=== PATIENT | female | born 1935 | race Caucasian/White ===

== ENCOUNTER → 2016-03-25 | Day surgery (SDC) | payer MEDICARE ==
[~2016-03-25] MED LIST: ACET325T9 PO; ALBU2.5V5 NEB; BRIN8DRO EACHEYE; CHOL500016 PO; CITA20TA5 PO; CITA40TA5 PO; CYCL1DRO EACHEYE; DILT180C67 PO; DIPH25CA58 PO; DOCU-27 PO; FENTANYL PF 100 MCG/2 ML VIAL. IV PRN; FISH12002 PO; FLUT1DIS3 IH; FURO80TA3 PO; GLYC30DR OP; HYPR10GE OP; IPRA4AER IH; IV RINGERS,LACTATED 1000ML 1,000 ML IV SCH; KETO5DRO3 EACHEYE; LEVO100T PO; LEVO125T5 PO; LIDOCAINE 1% 1 ML SYRINGE. ID PRN; LIDOCAINE 2% PF Vial for OR 5 ML VIAL. ONE; METH-39 PO; METO25TA4 PO; MULT-246 PO; NIAC500T PO; NYST60PO TP; OMEP20CA9 PO; OXYB5TAB PO; POTA10TA10 PO; PRED20TA PO; PROCHLORPERAZINE 10 MG/2 ML VIAL. IV PRN; PROPOFOL 20 ML IV ONE; SIMV20TA3 PO; SPIR25TA3 PO; Sennosides/Docusate Sodium PO; WARF5TAB PO; WARF5TAB7 PO; WARF7.5T PO
[2016-03-25 08:00] VITALS: BP 140/70
--- NOTE | 2016-03-26 13:31 | PATHOLOGY ---
PATHOLOGY REPORT * * * * * * * * FINAL DIAGNOSIS: Esophageal biopsy: - Sanjuana esophagitis. COMMENT: Sections of the esophageal biopsy reveal segments of hyperplastic squamous esophageal mucosa. There are focal intraepithelial neutrophils and chronic inflammatory cells. A PAS-D stain for fungus is obtained and reveals yeast and pseudohyphae consistent with Sanjuana species. The findings are compatible with Sanjuana esophagitis. There is no evidence of Torres's change, dysplasia, or malignancy. (JPM:mgr; d/t: 03/26/16) Special Stain Performed: PAS for fungus REPORT ELECTRONICALLY SIGNED BY: Pedro Philip M.D. DATE/TIME: 03/26/2016 13:31 * * * * * * * * GROSS PATHOLOGY: Received in formalin labeled "Annie Orozco, esophageal biopsy," are 5 segments of cast soft tissue measuring 0.7 x 0.4 x 0.2 cm in aggregate dimensions and ranging from 0.2 to 0.5 cm in maximum dimension. The specimen is submitted entirely in cassette A1. (KAH; 03/25/2016) INITIAL CPT CODE(S): A; 96508, 63498 Professional services performed by [facility] [place] [address] Technical services performed by [facility] at [address] [place] [address]. SPECIMEN(S) RECEIVED: A.Esophageal biopsy CLINICAL HISTORY: Dysphagia PATIENT: ANNIE OROZCO /AGE: 7 1935 (Age: 80) PATIENT #: [id number] ALT CASE #: SPECIMEN COLLECTION DATE: 03/25/2016 SPECIMEN RECEIVED DATE: 03/25/2016 [facility] - [address] [place] [address] - PHONE: [phone] * * * END OF REPORT * * *
== END | disposition home or self-care (01) ==
LOC: SURG 05:50
PROVIDERS: ATTEND Internal Medicine Gastroenterology
DX: K22.2 Esophageal obstruction (principal); K29.50 Unspecified chronic gastritis without bleeding; B37.81 Candidal esophagitis; M19.90 Unspecified osteoarthritis, unspecified site; F32.9 Major depressive disorder, single episode, unspecified; E78.00 Pure hypercholesterolemia, unspecified; J44.9 Chronic obstructive pulmonary disease, unspecified; Z87.891 Personal history of nicotine dependence
CPT/HCPCS: 43239; 43450; 88305; 88312; J2704

== ENCOUNTER → 2017-01-21 | Day surgery (SDC) | payer MEDICARE ==
[~2017-01-21] MED LIST changes: -ACET325T9 PO; -ALBU2.5V5 NEB; -BRIN8DRO EACHEYE; -CHOL500016 PO; -CITA20TA5 PO; -CITA40TA5 PO; -CYCL1DRO EACHEYE; -DILT180C67 PO; -DIPH25CA58 PO; -DOCU-27 PO; -FENTANYL PF 100 MCG/2 ML VIAL. IV PRN; -FISH12002 PO; -FLUT1DIS3 IH; -FURO80TA3 PO; -GLYC30DR OP; -HYPR10GE OP; -IPRA4AER IH; -IV RINGERS,LACTATED 1000ML 1,000 ML IV SCH; -KETO5DRO3 EACHEYE; -LEVO100T PO; -LEVO125T5 PO; -LIDOCAINE 1% 1 ML SYRINGE. ID PRN; +LIDOCAINE 1% PF 2 ML VIAL. ID; +LIDOCAINE 2% PF Vial for OR 5 ML VIAL.; -LIDOCAINE 2% PF Vial for OR 5 ML VIAL. ONE; -METH-39 PO; -METO25TA4 PO; -MULT-246 PO; -NIAC500T PO; -NYST60PO TP; -OMEP20CA9 PO; -OXYB5TAB PO; -POTA10TA10 PO; -PRED20TA PO; +PROCHLORPERAZINE 10 MG/2 ML VIAL. IV; -PROCHLORPERAZINE 10 MG/2 ML VIAL. IV PRN; +PROPOFOL 20 ML IV; -PROPOFOL 20 ML IV ONE; -SIMV20TA3 PO; -SPIR25TA3 PO; -Sennosides/Docusate Sodium PO; -WARF5TAB PO; -WARF5TAB7 PO; -WARF7.5T PO; +fentaNYL PF VIAL 100 MCG/2 ML VIAL IV
[2017-01-21] MEDS: IV RINGERS,LACTATED 1000ML 1,000 ML IV (13:19)
== END | disposition home or self-care (01) ==
LOC: ENDOS 12:25
DX: K21.0 Gastro-esophageal reflux disease with esophagitis (principal); K31.7 Polyp of stomach and duodenum; K29.50 Unspecified chronic gastritis without bleeding; I11.0 Hypertensive heart disease with heart failure; I50.9 Heart failure, unspecified; E78.00 Pure hypercholesterolemia, unspecified; I25.10 Atherosclerotic heart disease of native coronary artery without angina pectoris; F17.200 Nicotine dependence, unspecified, uncomplicated; E03.9 Hypothyroidism, unspecified; M19.90 Unspecified osteoarthritis, unspecified site; I48.91 Unspecified atrial fibrillation; Z90.49 Acquired absence of other specified parts of digestive tract; Z86.69 Personal history of other diseases of the nervous system and sense organs; Z86.73 Personal history of transient ischemic attack (TIA), and cerebral infarction without residual deficits; Z98.51 Tubal ligation status; Z87.39 Personal history of other diseases of the musculoskeletal system and connective tissue; Z87.440 Personal history of urinary (tract) infections; Z86.14 Personal history of Methicillin resistant Staphylococcus aureus infection; Z88.6 Allergy status to analgesic agent; Z88.8 Allergy status to other drugs, medicaments and biological substances
CPT/HCPCS: 43239; 88305; 88342; J2704

== ENCOUNTER 2017-05-11 17:04 | Inpatient (IN) | payer MEDICARE ==
[2017-05-11] MEDS: IPRATRPIUM/ALBUTEROL 0.5/2.5MG 3 ML NEBU. NEB ×2 (17:15→19:24)
[2017-05-11 17:23] LABS: ADD MAN DIFF? NO
[2017-05-11 17:27] LABS: BASO # 0.1 x10^3/uL (0.0-0.2); BASO % 1 % (0-3); EOS % 0 % (0-3); HEMATOCRIT 47.1 % (36.0-47.0); HEMOGLOBIN 15.1 g/dL (12.0-15.5); LYMPH # 0.9 x10^3/uL (1.0-4.8); LYMPH % 16 % (24-48); MEAN CORPUSCULAR HEMOGLOBIN 28 pg (25-35); MEAN CORPUSCULAR HGB CONC 32 g/dL (31-37); MEAN CORPUSCULAR VOLUME 86 fL (79-100); MONO # 0.5 x10^3/uL (0.0-1.1); MONO % 9 % (0-9); NEUT % 74 % (31-73); PLATELET COUNT 153 x10^3/uL (140-400); RED BLOOD COUNT 5.48 x10^6/uL (3.50-5.40); RED CELL DISTRIBUTION WIDTH 16.9 % (11.5-14.5); WHITE BLOOD COUNT 5.5 x10^3/uL (4.0-11.0)
[2017-05-11 17:37] LABS: ANION GAP 10 (6-14); BLOOD UREA NITROGEN 18 mg/dL (7-20); CALCIUM 10.8 mg/dL (8.5-10.1); CARBON DIOXIDE 25 mmol/L (21-32); CHLORIDE 104 mmol/L (98-107); CREATININE 1.3 mg/dL (0.6-1.0); GFR 39.5; GLUCOSE 127 mg/dL (70-99); POTASSIUM 4.3 mmol/L (3.5-5.1); SODIUM 139 mmol/L (136-145)
[2017-05-11 17:43] LABS: ALBUMIN 3.5 g/dL (3.4-5.0); ALK PHOS 132 U/L (46-116); ALT (SGPT) 10 U/L (14-59); AST (SGOT) 14 U/L (15-37); DIRECT BILIRUBIN 0.3 mg/dL (0.0-0.2); LIPASE 89 U/L (73-393); TOTAL BILIRUBIN 1.2 mg/dL (0.2-1.0); TOTAL PROTEIN 7.3 g/dL (6.4-8.2)
[2017-05-11 17:45] LABS: TROPONINI < 0.017 ng/mL (0.000-0.055)
[2017-05-11 17:49] LABS: NT-PRO BNP 2169 pg/mL (0-449)
[2017-05-11] MEDS ORDERED: ONDANSETRON PF 4 MG/2 ML VIAL. IV (18:45)
[2017-05-11] MEDS: FUROSEMIDE 20 MG/2 ML VIAL. IVP (19:07)
[2017-05-11] MEDS: methylPREDNISolone SOD SUCC PF 125 MG/2 ML VIAL. IV (19:07)
[2017-05-11 20:02] LABS: BASE EXCESS ABG 1 mmol/L (-3-3); HCO3 ABG 25 mmol/L (21-28); PCO2 ABG 39 mmHg (35-46); PH ABG 7.42 (7.35-7.45); PO2 ABG 84 mmHg (65-108); SAT O2 ABG 96 % (92-99)
[2017-05-11 20:34] LABS: FIO2 ABG 45
[2017-05-11 22:51] LABS: TROPONINI < 0.017 ng/mL (0.000-0.055)
[2017-05-12 01:44] LABS: TROPONINI < 0.017 ng/mL (0.000-0.055)
[2017-05-12 01:50] LABS: ANION GAP 12 (6-14); BLOOD UREA NITROGEN 19 mg/dL (7-20); CALCIUM 10.4 mg/dL (8.5-10.1); CARBON DIOXIDE 24 mmol/L (21-32); CHLORIDE 104 mmol/L (98-107); CREATININE 1.3 mg/dL (0.6-1.0); GFR 39.5; GLUCOSE 157 mg/dL (70-99); POTASSIUM 4.2 mmol/L (3.5-5.1); SODIUM 140 mmol/L (136-145)
[2017-05-12 03:54] LABS: BASO % 0 % (0-3); EOS % 0 % (0-3); HEMATOCRIT 44.6 % (36.0-47.0); HEMOGLOBIN 14.4 g/dL (12.0-15.5); LYMPH # 0.3 x10^3/uL (1.0-4.8); LYMPH % 7 % (24-48); MEAN CORPUSCULAR HEMOGLOBIN 28 pg (25-35); MEAN CORPUSCULAR HGB CONC 32 g/dL (31-37); MEAN CORPUSCULAR VOLUME 86 fL (79-100); MONO % 1 % (0-9); NEUT # 4.3 x10^3uL (1.8-7.7); NEUT % 92 % (31-73); PLATELET COUNT 140 x10^3/uL (140-400); RED BLOOD COUNT 5.16 x10^6/uL (3.50-5.40); RED CELL DISTRIBUTION WIDTH 16.8 % (11.5-14.5); WHITE BLOOD COUNT 4.7 x10^3/uL (4.0-11.0)
[2017-05-12 03:56] LABS: ADD MAN DIFF? YES
[2017-05-12] MEDS: IPRATRPIUM/ALBUTEROL 0.5/2.5MG 3 ML NEBU. NEB ×5 (07:43→19:32)
[2017-05-12 07:54] LABS: BASE EXCESS ABG -1 mmol/L (-3-3); HCO3 ABG 24 mmol/L (21-28); PCO2 ABG 38 mmHg (35-46); PH ABG 7.41 (7.35-7.45); PO2 ABG 83 mmHg (65-108); SAT O2 ABG 96 % (92-99)
[2017-05-12 08:00] LABS: FIO2 ABG 45
[2017-05-12 08:06] LABS: POC GLUCOSE 161 mg/dL (70-99)
[2017-05-12] MEDS ORDERED: POLYVINYL ALCOHOL 1.4% OPHTH SOLUTION 15ML BOTTLE. OU (08:30)
[2017-05-12] MEDS ORDERED: DORZOLAMIDE 2% OPHTH SOLUTION 10ML BOTTLE. OU (09:00)
[2017-05-12] MEDS ORDERED: NON FORMULARY ITEM (Ipratropium/Albuterol Sulfate (Combivent Respimat Inhal) 2 INH) IH (09:00)
[2017-05-12] MEDS: WARFARIN 2 MG TABLET. PO (09:00)
[2017-05-12] MEDS ORDERED: NON FORMULARY ITEM (Fluticasone/Salmeterol (Advair 250-50 Diskus) 1 PUFF) IH (09:00)
[2017-05-12 09:01] LABS: INR 1.9 (0.8-1.1); PROTHROMBIN TIME PATIENT 21.5 SEC (11.7-14.0)
[2017-05-12] MEDS: SPIRONOLACTONE 25 MG TABLET PO (09:22)
[2017-05-12] MEDS: methylPREDNISolone SOD SUCC PF 125 MG/2 ML VIAL. IV ×3 (09:22→20:52)
[2017-05-12] MEDS: FUROSEMIDE 80 MG TABLET. PO (09:22)
[2017-05-12] MEDS: OXYBUTYNIN CHLORIDE 5 MG TABLET PO ×2 (09:22→20:42)
[2017-05-12] MEDS: PANTOPRAZOLE 40 MG TABLET.DR. PO (09:23)
[2017-05-12] MEDS: POTASSIUM CHLORIDE 10 MEQ TABLET.ER. PO ×2 (09:23→20:50)
[2017-05-12] MEDS: METOPROLOL TART IMMED RELEASE 25 MG TABLET. PO ×2 (09:23→20:44)
[2017-05-12] MEDS: ACETAMINOPHEN 500 MG TABLET PO ×2 (09:23→17:07)
[2017-05-12] MEDS: LEVOTHYROXINE 112 MCG TABLET PO (09:23)
[2017-05-12] MEDS: cycloSPORINE 0.05% OPTH 1 DROP DROPERETTE OU ×2 (09:24→20:47)
[2017-05-12] MEDS: KETOTIFEN FUMARATE 0.025% OPHTH SOLUTION BOTTLE. OU ×2 (09:24→20:44)
[2017-05-12 09:28] LABS: % BANDS 3 % (0-9); % LYMPHS 5 % (24-48); % MONOS 1 % (0-10); % SEGS 91 % (35-66); PLT ESTIMATE ADEQUATE (ADEQUATE)
[2017-05-12] MEDS: DORZOLAMIDE 2% OPHTH SOLUTION 10ML BOTTLE. OU ×2 (10:04→20:45)
[2017-05-12] MEDS: BRIMONIDINE 0.2% OPHTH SOLUTION 5ML BOTTLE. OU ×2 (10:04→20:45)
[2017-05-12 10:20] LABS: THYROID STIM HORMONE (TSH) 0.736 uIU/mL (0.358-3.74)
[2017-05-12] MEDS: BUDESONIDE 0.5 MG/2 ML NEBU. NEB ×2 (11:29→19:32)
[2017-05-12] MEDS: WARFARIN 7.5 MG TABLET. PO (12:54)
[2017-05-12] MEDS: cefTRIAXone IV Push 1 GM VIAL. IVP (13:02)
[2017-05-12] MEDS: WARFARIN 5 MG TABLET. PO (17:01)
[2017-05-12] MEDS: ATORVASTATIN CALCIUM 10 MG TABLET. PO (20:42)
[2017-05-12] MEDS: LATANOPROST 0.005% OPHTH SOLUTION 2.5ML BOTTLE. OU (20:44)
[2017-05-12] MEDS: POLYVINYL ALCOHOL 1.4% OPHTH SOLUTION 15ML BOTTLE. OU (20:45)
[2017-05-12 21:04] LABS: POC GLUCOSE 200 mg/dL (70-99)
[2017-05-13 01:13] LABS: MRSA BY PCR Negative (Negative)
[2017-05-13] MEDS: ACETAMINOPHEN 500 MG TABLET PO ×2 (04:28→23:20)
[2017-05-13] MEDS: methylPREDNISolone SOD SUCC PF 125 MG/2 ML VIAL. IV ×3 (05:47→22:07)
[2017-05-13] MEDS: LEVOTHYROXINE 112 MCG TABLET PO (05:50)
[2017-05-13 06:51] LABS: ANION GAP 12 (6-14); BLOOD UREA NITROGEN 32 mg/dL (7-20); CALCIUM 11.4 mg/dL (8.5-10.1); CARBON DIOXIDE 23 mmol/L (21-32); CHLORIDE 100 mmol/L (98-107); CREATININE 1.6 mg/dL (0.6-1.0); GFR 31.1; GLUCOSE 175 mg/dL (70-99); POTASSIUM 4.6 mmol/L (3.5-5.1); SODIUM 135 mmol/L (136-145)
[2017-05-13 07:02] LABS: INR 2.3 (0.8-1.1); PROTHROMBIN TIME PATIENT 24.3 SEC (11.7-14.0)
[2017-05-13] MEDS ORDERED: DEXTROSE 50% 25 GM / 50ML DISP.SYRIN. IV (08:15)
[2017-05-13] MEDS: INSULIN ASPART 300 UNITS/3 ML INSULN.PEN SQ ×3 (09:00→17:00)
[2017-05-13] MEDS: BUDESONIDE 0.5 MG/2 ML NEBU. NEB ×2 (09:08→19:44)
[2017-05-13] MEDS: IPRATRPIUM/ALBUTEROL 0.5/2.5MG 3 ML NEBU. NEB ×4 (09:09→19:44)
[2017-05-13] MEDS: OXYBUTYNIN CHLORIDE 5 MG TABLET PO ×2 (10:16→22:12)
[2017-05-13] MEDS: FUROSEMIDE 80 MG TABLET. PO (10:16)
[2017-05-13] MEDS: SPIRONOLACTONE 25 MG TABLET PO (10:16)
[2017-05-13] MEDS: LACTOBACILLUS RHAMNOSUS GG 1 CAPSULE. PO ×2 (10:16→22:12)
[2017-05-13] MEDS: PANTOPRAZOLE 40 MG TABLET.DR. PO (10:16)
[2017-05-13] MEDS: POTASSIUM CHLORIDE 10 MEQ TABLET.ER. PO ×2 (10:16→22:10)
[2017-05-13] MEDS: METOPROLOL TART IMMED RELEASE 25 MG TABLET. PO ×2 (10:17→22:09)
[2017-05-13] MEDS: cycloSPORINE 0.05% OPTH 1 DROP DROPERETTE OU ×2 (10:17→22:03)
[2017-05-13] MEDS: DORZOLAMIDE 2% OPHTH SOLUTION 10ML BOTTLE. OU ×2 (10:17→22:18)
[2017-05-13] MEDS: KETOTIFEN FUMARATE 0.025% OPHTH SOLUTION BOTTLE. OU ×2 (10:18→22:11)
[2017-05-13] MEDS: BRIMONIDINE 0.2% OPHTH SOLUTION 5ML BOTTLE. OU ×2 (10:18→22:18)
[2017-05-13 12:11] LABS: MAGNESIUM 2.1 mg/dL (1.8-2.4)
[2017-05-13 12:34] LABS: POC GLUCOSE 153 mg/dL (70-99)
[2017-05-13] MEDS: cefTRIAXone IV Push 1 GM VIAL. IVP (14:55)
[2017-05-13 15:22] LABS: CHOLESTEROL 140 mg/dL (0-200); HDLC 44 mg/dL (40-60); LDLC 81 mg/dL (0-100); NON-HDL CHOLESTEROL 96 mg/dL (0-129); TRIGLYCERIDES 76 mg/dL (0-150); VLDLC 15 mg/dL (0-40)
[2017-05-13 15:23] LABS: CHOLESTEROL/HDL RATIO 3.2
[2017-05-13] MEDS: WARFARIN 5 MG TABLET. PO (17:05)
[2017-05-13] MEDS: BISACODYL 10 MG SUPP.RECT. PR (17:05)
[2017-05-13] MEDS: IV NORMAL SALINE 1000ML BAG 1,000 ML IV (17:05)
[2017-05-13 18:19] LABS: POC GLUCOSE 160 mg/dL (70-99)
[2017-05-13 20:21] LABS: POC GLUCOSE 178 mg/dL (70-99)
[2017-05-13] MEDS: LATANOPROST 0.005% OPHTH SOLUTION 2.5ML BOTTLE. OU (22:02)
[2017-05-13] MEDS: POLYVINYL ALCOHOL 1.4% OPHTH SOLUTION 15ML BOTTLE. OU (22:11)
[2017-05-13] MEDS: ATORVASTATIN CALCIUM 10 MG TABLET. PO (22:12)
[2017-05-13] MEDS: NYSTATIN TOPICAL POWDER 15GM BOTTLE. TP (22:19)
[2017-05-14 05:18] LABS: ANION GAP 9 (6-14); BLOOD UREA NITROGEN 35 mg/dL (7-20); CARBON DIOXIDE 26 mmol/L (21-32); CHLORIDE 101 mmol/L (98-107); CREATININE 1.6 mg/dL (0.6-1.0); GFR 31.1; GLUCOSE 162 mg/dL (70-99); POTASSIUM 4.6 mmol/L (3.5-5.1); SODIUM 136 mmol/L (136-145)
[2017-05-14] MEDS: methylPREDNISolone SOD SUCC PF 125 MG/2 ML VIAL. IV (06:30)
[2017-05-14] MEDS: LEVOTHYROXINE 112 MCG TABLET PO (06:31)
[2017-05-14] MEDS: IPRATRPIUM/ALBUTEROL 0.5/2.5MG 3 ML NEBU. NEB ×4 (07:12→19:48)
[2017-05-14] MEDS: BUDESONIDE 0.5 MG/2 ML NEBU. NEB ×2 (07:13→19:48)
[2017-05-14] MEDS: INSULIN ASPART 300 UNITS/3 ML INSULN.PEN SQ ×3 (08:00→17:00)
[2017-05-14 08:38] LABS: POC GLUCOSE 156 mg/dL (70-99)
[2017-05-14] MEDS: cycloSPORINE 0.05% OPTH 1 DROP DROPERETTE OU ×2 (09:00→21:38)
[2017-05-14] MEDS: LATANOPROST 0.005% OPHTH SOLUTION 2.5ML BOTTLE. OU ×2 (09:12→21:50)
[2017-05-14] MEDS: KETOTIFEN FUMARATE 0.025% OPHTH SOLUTION BOTTLE. OU ×2 (09:12→21:57)
[2017-05-14] MEDS: NYSTATIN TOPICAL POWDER 15GM BOTTLE. TP ×2 (09:12→21:56)
[2017-05-14] MEDS: BRIMONIDINE 0.2% OPHTH SOLUTION 5ML BOTTLE. OU ×2 (09:12→21:58)
[2017-05-14] MEDS: DORZOLAMIDE 2% OPHTH SOLUTION 10ML BOTTLE. OU ×2 (09:13→21:58)
[2017-05-14] MEDS: POLYVINYL ALCOHOL 1.4% OPHTH SOLUTION 15ML BOTTLE. OU ×2 (09:13→21:58)
[2017-05-14] MEDS: OXYBUTYNIN CHLORIDE 5 MG TABLET PO ×2 (09:14→21:40)
[2017-05-14] MEDS: PANTOPRAZOLE 40 MG TABLET.DR. PO (09:14)
[2017-05-14] MEDS: methylPREDNISolone SOD SUCC PF 40 MG/ML VIAL. IV ×2 (09:14→21:38)
[2017-05-14] MEDS: LACTOBACILLUS RHAMNOSUS GG 1 CAPSULE. PO ×2 (09:14→21:40)
[2017-05-14] MEDS: POTASSIUM CHLORIDE 10 MEQ TABLET.ER. PO ×2 (09:15→21:40)
[2017-05-14] MEDS: FUROSEMIDE 40 MG TABLET. PO (09:15)
[2017-05-14] MEDS: SPIRONOLACTONE 25 MG TABLET PO (09:16)
[2017-05-14] MEDS: METOPROLOL TART IMMED RELEASE 25 MG TABLET. PO ×2 (09:16→21:42)
[2017-05-14] MEDS: cefTRIAXone IV Push 1 GM VIAL. IVP (11:51)
[2017-05-14 11:58] LABS: POC GLUCOSE 151 mg/dL (70-99)
[2017-05-14] MEDS: WARFARIN 2.5 MG TABLET. PO (16:31)
[2017-05-14] MEDS: ACETAMINOPHEN 500 MG TABLET PO (16:31)
[2017-05-14 17:33] LABS: POC GLUCOSE 139 mg/dL (70-99)
[2017-05-14 21:03] LABS: POC GLUCOSE 170 mg/dL (70-99)
[2017-05-14] MEDS: ATORVASTATIN CALCIUM 10 MG TABLET. PO (21:39)
[2017-05-15 05:32] LABS: ANION GAP 8 (6-14); BLOOD UREA NITROGEN 35 mg/dL (7-20); CALCIUM 11.3 mg/dL (8.5-10.1); CARBON DIOXIDE 25 mmol/L (21-32); CHLORIDE 99 mmol/L (98-107); CREATININE 1.4 mg/dL (0.6-1.0); GFR 36.3; GLUCOSE 164 mg/dL (70-99); POTASSIUM 4.7 mmol/L (3.5-5.1); SODIUM 132 mmol/L (136-145)
[2017-05-15] MEDS: LEVOTHYROXINE 112 MCG TABLET PO (05:48)
[2017-05-15] MEDS: PANTOPRAZOLE 40 MG TABLET.DR. PO (05:50)
[2017-05-15] MEDS: BUDESONIDE 0.5 MG/2 ML NEBU. NEB (07:47)
[2017-05-15] MEDS: IPRATRPIUM/ALBUTEROL 0.5/2.5MG 3 ML NEBU. NEB ×2 (07:47→11:57)
[2017-05-15] MEDS: INSULIN ASPART 300 UNITS/3 ML INSULN.PEN SQ (08:00)
[2017-05-15 08:17] LABS: POC GLUCOSE 135 mg/dL (70-99)
[2017-05-15] MEDS: OXYBUTYNIN CHLORIDE 5 MG TABLET PO (09:16)
[2017-05-15] MEDS: LACTOBACILLUS RHAMNOSUS GG 1 CAPSULE. PO (09:16)
[2017-05-15] MEDS: methylPREDNISolone SOD SUCC PF 40 MG/ML VIAL. IV (09:16)
[2017-05-15] MEDS: FUROSEMIDE 40 MG TABLET. PO (09:16)
[2017-05-15] MEDS: POTASSIUM CHLORIDE 10 MEQ TABLET.ER. PO (09:16)
[2017-05-15] MEDS: SPIRONOLACTONE 25 MG TABLET PO (09:17)
[2017-05-15] MEDS: METOPROLOL TART IMMED RELEASE 25 MG TABLET. PO (09:17)
[2017-05-15] MEDS: cycloSPORINE 0.05% OPTH 1 DROP DROPERETTE OU (09:18)
[2017-05-15] MEDS: BRIMONIDINE 0.2% OPHTH SOLUTION 5ML BOTTLE. OU (09:19)
[2017-05-15] MEDS: DORZOLAMIDE 2% OPHTH SOLUTION 10ML BOTTLE. OU (09:20)
[2017-05-15] MEDS: KETOTIFEN FUMARATE 0.025% OPHTH SOLUTION BOTTLE. OU (09:20)
[2017-05-15] MEDS: NYSTATIN TOPICAL POWDER 15GM BOTTLE. TP (09:21)
[2017-05-15 11:13] LABS: PROTHROMBIN TIME PATIENT 30.7 SEC (11.7-14.0)
[2017-05-15] MEDS ORDERED: NYSTATIN 100,000 UNITS/ML 5 ML ORAL.SUSP. SWSW (11:15)
== END 2017-05-15 12:00 | disposition home or self-care (01) | DRG 291 ==
LOC: 2 NORTH 05-13 17:40 → ER 17:04 → 1 WEST ICU 19:00
PROVIDERS: Family Medicine
PROC: 5A09357 Assistance with Respiratory Ventilation, Less than 24 Consecutive Hours, Continuous Positive Airway Pressure (ICD-10-PCS; 2017-05-11)
PROC: 5A09357 Assistance with Respiratory Ventilation, Less than 24 Consecutive Hours, Continuous Positive Airway Pressure (ICD-10-PCS; principal; 2017-05-12)
PROC: 5A09357 Assistance with Respiratory Ventilation, Less than 24 Consecutive Hours, Continuous Positive Airway Pressure (ICD-10-PCS; 2017-05-13)
PROC: 5A09357 Assistance with Respiratory Ventilation, Less than 24 Consecutive Hours, Continuous Positive Airway Pressure (ICD-10-PCS; 2017-05-14)
PROC: 5A09357 Assistance with Respiratory Ventilation, Less than 24 Consecutive Hours, Continuous Positive Airway Pressure (ICD-10-PCS; 2017-05-15)
DX: I13.0 Hypertensive heart and chronic kidney disease with heart failure and stage 1 through stage 4 chronic kidney disease, or unspecified chronic kidney disease (principal); I50.33 Acute on chronic diastolic (congestive) heart failure; J96.21 Acute and chronic respiratory failure with hypoxia; N17.9 Acute kidney failure, unspecified; B37.0 Candidal stomatitis; I27.20 Pulmonary hypertension, unspecified; E11.22 Type 2 diabetes mellitus with diabetic chronic kidney disease; J44.1 Chronic obstructive pulmonary disease with (acute) exacerbation; E03.9 Hypothyroidism, unspecified; N18.3 Chronic kidney disease, stage 3 (moderate); I48.2 Chronic atrial fibrillation; I25.10 Atherosclerotic heart disease of native coronary artery without angina pectoris; E78.00 Pure hypercholesterolemia, unspecified; E78.5 Hyperlipidemia, unspecified; H40.9 Unspecified glaucoma; K21.9 Gastro-esophageal reflux disease without esophagitis; Z77.090 Contact with and (suspected) exposure to asbestos; I71.4 Abdominal aortic aneurysm, without rupture; F32.9 Major depressive disorder, single episode, unspecified; F41.9 Anxiety disorder, unspecified; M19.90 Unspecified osteoarthritis, unspecified site; T38.0X5A Adverse effect of glucocorticoids and synthetic analogues, initial encounter; Z86.73 Personal history of transient ischemic attack (TIA), and cerebral infarction without residual deficits; Z79.01 Long term (current) use of anticoagulants; Z82.49 Family history of ischemic heart disease and other diseases of the circulatory system; Z86.14 Personal history of Methicillin resistant Staphylococcus aureus infection; Z95.1 Presence of aortocoronary bypass graft; Z87.891 Personal history of nicotine dependence; Z95.0 Presence of cardiac pacemaker; Z95.3 Presence of xenogenic heart valve; Z98.51 Tubal ligation status; Z88.5 Allergy status to narcotic agent; Z88.8 Allergy status to other drugs, medicaments and biological substances; Z90.49 Acquired absence of other specified parts of digestive tract; Z79.899 Other long term (current) drug therapy; Y92.89 Other specified places as the place of occurrence of the external cause
CPT/HCPCS: 36415; 36600; 71045; 71250; 80048; 80061; 80076; 82805; 82962; 83690; 83735; 83880; 84443; 84484; 85007; 85025; 85610; 87641; 92526-GN; 92610-GN; 93005; 93306; 94640; 94660; 94760; 96374; 96375; 99291; 99291-25; J0696; J1815; J2920; J2930; J7030; J7620; J7626

== ENCOUNTER 2017-08-14 16:01 | Inpatient (IN) | payer MEDICARE ==
[2017-08-14 17:00] LABS: ADD MAN DIFF? NO
[2017-08-14 17:02] LABS: BASO % 1 % (0-3); EOS % 0 % (0-3); HEMATOCRIT 39.5 % (36.0-47.0); LYMPH # 0.9 x10^3/uL (1.0-4.8); LYMPH % 20 % (24-48); MEAN CORPUSCULAR HEMOGLOBIN 28 pg (25-35); MEAN CORPUSCULAR HGB CONC 33 g/dL (31-37); MEAN CORPUSCULAR VOLUME 85 fL (79-100); MONO # 0.4 x10^3/uL (0.0-1.1); MONO % 9 % (0-9); NEUT # 3.1 x10^3uL (1.8-7.7); NEUT % 70 % (31-73); PLATELET COUNT 145 x10^3/uL (140-400); RED BLOOD COUNT 4.64 x10^6/uL (3.50-5.40); RED CELL DISTRIBUTION WIDTH 19.2 % (11.5-14.5); WHITE BLOOD COUNT 4.5 x10^3/uL (4.0-11.0)
[2017-08-14 17:13] LABS: ANION GAP 9 (6-14); BLOOD UREA NITROGEN 19 mg/dL (7-20); CALCIUM 9.9 mg/dL (8.5-10.1); CARBON DIOXIDE 24 mmol/L (21-32); CHLORIDE 104 mmol/L (98-107); CREATININE 1.5 mg/dL (0.6-1.0); GFR 33.5; GLUCOSE 101 mg/dL (70-99); SODIUM 137 mmol/L (136-145)
[2017-08-14] MEDS ORDERED: ONDANSETRON PF 4 MG/2 ML VIAL. IV (18:00)
[2017-08-14 18:13] LABS: INR 2.3 (0.8-1.1); PARTIAL THROMBOPLASTIN TIME 43 SEC (24-38); PROTHROMBIN TIME PATIENT 24.8 SEC (11.7-14.0)
[2017-08-14] MEDS: IV NORMAL SALINE 1000ML BAG 1,000 ML IV (19:00)
[2017-08-14] MEDS: IPRATRPIUM/ALBUTEROL 0.5/2.5MG 3 ML NEBU. NEB (19:26)
[2017-08-15] MEDS: NYSTATIN TOPICAL POWDER 15GM BOTTLE. TP ×2 (03:00→09:00)
[2017-08-15] MEDS: IPRATRPIUM/ALBUTEROL 0.5/2.5MG 3 ML NEBU. NEB ×2 (07:31→11:58)
[2017-08-15] MEDS: IV NORMAL SALINE 1000ML BAG 1,000 ML IV (08:20)
[2017-08-15] MEDS ORDERED: PROPOFOL 20 ML IV (09:56)
[2017-08-15] MEDS: IV RINGERS,LACTATED 1000ML 1,000 ML IV (09:57)
[2017-08-15] MEDS ORDERED: fentaNYL PF VIAL 100 MCG/2 ML VIAL IV ×2 (10:00)
[2017-08-15] MEDS ORDERED: LIDOCAINE 1% PF 2 ML VIAL. ID (10:00)
[2017-08-15] MEDS ORDERED: diphenhydrAMINE HCL 25 MG CAPSULE PO (11:15)
[2017-08-15] MEDS ORDERED: ACETAMINOPHEN 325 MG TABLET. PO (11:15)
[2017-08-15] MEDS ORDERED: POLYVINYL ALCOHOL 1.4% OPHTH SOLUTION 15ML BOTTLE. OU (11:30)
[2017-08-15] MEDS ORDERED: BUDESONIDE 0.5 MG/2 ML NEBU. NEB (12:00)
[2017-08-15] MEDS: BRIMONIDINE 0.2% OPHTH SOLUTION 5ML BOTTLE. OU (12:00)
[2017-08-15] MEDS: PANTOPRAZOLE 40 MG TABLET.DR. PO (13:23)
[2017-08-15] MEDS: CYANOCOBALAMIN (VITAMIN B-12) 1,000 MCG TABLET. PO (13:24)
[2017-08-15] MEDS: POTASSIUM CHLORIDE 10 MEQ TABLET.ER. PO (13:26)
[2017-08-15] MEDS: cycloSPORINE 0.05% OPTH 1 DROP DROPERETTE OU (13:27)
[2017-08-15] MEDS: SPIRONOLACTONE 25 MG TABLET PO (13:27)
[2017-08-15] MEDS: LEVOTHYROXINE 112 MCG TABLET PO (13:27)
[2017-08-15] MEDS: ATORVASTATIN CALCIUM 10 MG TABLET. PO (13:28)
[2017-08-15] MEDS: METOPROLOL TART IMMED RELEASE 25 MG TABLET. PO (13:28)
[2017-08-15] MEDS: OXYBUTYNIN CHLORIDE 5 MG TABLET PO (13:29)
[2017-08-15] MEDS: DORZOLAMIDE 2% OPHTH SOLUTION 10ML BOTTLE. OU (13:32)
[2017-08-15] MEDS: KETOTIFEN FUMARATE 0.025% OPHTH SOLUTION BOTTLE. OU (13:33)
[2017-08-15] MEDS ORDERED: WARFARIN 7.5 MG TABLET. PO (16:00)
[2017-08-15] MEDS ORDERED: NYSTATIN TOPICAL POWDER 15GM BOTTLE. TP (21:00)
[2017-08-15] MEDS ORDERED: LATANOPROST 0.005% OPHTH SOLUTION 2.5ML BOTTLE. OU (21:00)
[2017-08-15] MEDS ORDERED: MINERAL OIL/PETROLATUM,WHITE OPHTH OINT 3.5GM TUBE. OU (21:00)
[2017-08-16] MEDS ORDERED: FLUCONAZOLE 100 MG TABLET. PO (09:00)
[2017-08-16] MEDS ORDERED: NON FORMULARY ITEM (Warfarin Sodium 1 TAB) PO (09:00)
== END 2017-08-15 15:10 | disposition home or self-care (01) | DRG 392 ==
LOC: ER 16:01 → 4 NORTH 17:45
PROC: 0DC28ZZ Extirpation of Matter from Middle Esophagus, Via Natural or Artificial Opening Endoscopic (ICD-10-PCS; principal; 2017-08-15 10:00)
DX: K22.2 Esophageal obstruction (principal); J96.10 Chronic respiratory failure, unspecified whether with hypoxia or hypercapnia; I13.0 Hypertensive heart and chronic kidney disease with heart failure and stage 1 through stage 4 chronic kidney disease, or unspecified chronic kidney disease; I50.30 Unspecified diastolic (congestive) heart failure; I25.10 Atherosclerotic heart disease of native coronary artery without angina pectoris; J44.9 Chronic obstructive pulmonary disease, unspecified; E78.00 Pure hypercholesterolemia, unspecified; E03.9 Hypothyroidism, unspecified; E78.5 Hyperlipidemia, unspecified; I71.4 Abdominal aortic aneurysm, without rupture; N18.3 Chronic kidney disease, stage 3 (moderate); I48.2 Chronic atrial fibrillation; B37.2 Candidiasis of skin and nail; Z95.0 Presence of cardiac pacemaker; Z95.1 Presence of aortocoronary bypass graft; Z95.3 Presence of xenogenic heart valve; Z88.6 Allergy status to analgesic agent; Z88.5 Allergy status to narcotic agent; Z88.8 Allergy status to other drugs, medicaments and biological substances; Z87.891 Personal history of nicotine dependence; Z86.73 Personal history of transient ischemic attack (TIA), and cerebral infarction without residual deficits; Z98.51 Tubal ligation status; Z90.49 Acquired absence of other specified parts of digestive tract; Z86.14 Personal history of Methicillin resistant Staphylococcus aureus infection
CPT/HCPCS: 36415; 71045; 80048; 85025; 85610; 85730; 94640; 94760; 99285-25; J2704; J7030; J7120; J7620

== ENCOUNTER 2017-09-13 11:53 | Inpatient (IN) | payer MEDICARE ==
[~2017-09-13] VITALS: Ht 167.6 cm; Wt 120.4 kg
[~2017-09-13 11:53] MED LIST changes: +ACET325T9 PO; +ALBU2.5V5 NEB; +BRIN8DRO EACHEYE; +CEFP100T PO; +CHOL500016 PO; +CITA20TA6 PO; +CITA40TA5 PO; +CYAN10005 PO; +CYCL1DRO EACHEYE; +DILT180C29 PO; +DILT180C67 PO; +DIPH25CA58 PO; +DOCU-109 PO; +FISH12002 PO; +FLUC100T4 PO; +FLUT1DIS3 IH; +FURO80TA3 PO; +GLYC30DR OP; +HYPR10GE OP; +IPRA4AER IH; +KETO5DRO4 EACHEYE; +LACT1CAP19 PO; +LATA2.5D3 EACHEYE; +LEVO100T PO; +LEVO112T4 PO; +LEVO125T5 PO; -LIDOCAINE 1% PF 2 ML VIAL. ID; -LIDOCAINE 2% PF Vial for OR 5 ML VIAL.; +LYSI500T PO; +MELA3TAB2 PO; +METH-39 PO; +METO25TA4 PO; +MULT-246 PO; +NIAC500T PO; +NYST100054 SWSW; +NYST60PO TP; +OMEP20CA9 PO; +OXYB5TAB PO; +POTA10TA12 PO; +PRAV20TA2 PO; +PRED-220 PO; +PRED20TA PO; -PROCHLORPERAZINE 10 MG/2 ML VIAL. IV; -PROPOFOL 20 ML IV; +SIME180C16 PO; +SIMV20TA3 PO; +SPIR25TA5 PO; +Sennosides/Docusate Sodium PO; +WARF-31 PO; +WARF-78 PO; +WARF2TAB96 PO; +WARF7.5T48 PO; -fentaNYL PF VIAL 100 MCG/2 ML VIAL IV
[2017-09-13 13:19] LABS: BASO % 1 % (0-3); EOS % 0 % (0-3); HEMATOCRIT 36.8 % (36.0-47.0); LYMPH # 0.6 x10^3/uL (1.0-4.8); LYMPH % 18 % (24-48); MEAN CORPUSCULAR HEMOGLOBIN 28 pg (25-35); MEAN CORPUSCULAR HGB CONC 33 g/dL (31-37); MEAN CORPUSCULAR VOLUME 85 fL (79-100); MONO # 0.2 x10^3/uL (0.0-1.1); MONO % 6 % (0-9); NEUT # 2.6 x10^3uL (1.8-7.7); NEUT % 76 % (31-73); PLATELET COUNT 117 x10^3/uL (140-400); RED BLOOD COUNT 4.31 x10^6/uL (3.50-5.40); RED CELL DISTRIBUTION WIDTH 19.8 % (11.5-14.5); WHITE BLOOD COUNT 3.5 x10^3/uL (4.0-11.0)
[2017-09-13 13:30] LABS: PROTHROMBIN TIME PATIENT 49.4 SEC (11.7-14.0)
[2017-09-13 13:36] LABS: CALCIUM 10.1 mg/dL (8.5-10.1); CREATININE 1.6 mg/dL (0.6-1.0)
--- NOTE | 2017-09-13 13:45 | RAD ---
Portable chest, 09/13/2017: HISTORY: Dyspnea, hypoxia Comparison is made to a study from 08/19/2017. A left-sided transvenous pacemaker remains in place with its single lead extending into the right ventricle. There has been a previous median sternotomy. The heart is moderately enlarged. The pulmonary vascularity remains prominent with loss of vascular margination. A right basilar opacity developed obscuring the hemidiaphragm, compatible with mild infiltrate and possibly pleural fluid. The patient's overlying abdominal pannus partially obscures the left base. IMPRESSION: Worsening congestive heart fire with mild right basilar infiltrate and possible pleural fluid. Electronically signed by: Devon Obregon MD (09/13/2017 1:42 PM) [facility]
--- NOTE | 2017-09-13 13:47 | EKG ---
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
--- NOTE | 2017-09-13 15:30 | PHYS DOC ---
Past Medical History Past Medical History: A-Fib, CAD, CHF, COPD, CVA, High Cholesterol, Hypertension, Hypothyroid Past Surgical History: Coronary Bypass Surgery, Pacemaker Additional Past Surgical Histo: Valve Replacement Alcohol Use: None Drug Use: None Adult General Chief Complaint Chief Complaint: DYSPNEA/RESPIRATOY DISTRESS HPI HPI Patient is a 82 year old female who presents to the emergency department for worsening shortness of breath. The patient is known to have COPD and CHF. She is normally on oxygen, 3 L per nasal cannula. The patient is currently a resident at the [facility] this hospital. She was noted to have some hypoxia this morning despite oxygen therapy. EMS was called. The patient does take Coumadin for history of atrial fibrillation as well. She denies chest pain. During my interview, the patient does not feel dyspneic although she is noted to have an oxygen saturation of 84% with 3 L nasal cannula in place. I turned this up to 6 L and her oxygen saturation did improve. She has not had a fever or chills. She does endorse a cough that sounds subacute. The cough is nonproductive. Review of Systems Review of Systems Constitutional: Denies fever or chills Eyes: Denies change in visual acuity HENT: Denies nasal congestion or sore throat Respiratory: Denies cough or shortness of breath Cardiovascular: No additional information GI: Denies abdominal pain, nausea, vomiting Musculoskeletal: Denies back pain or joint pain Integument: Denies rash or skin lesions Neurologic: Denies headache All other systems were reviewed and found to be within normal limits, except as documented in this note. Current Medications Current Medications Current Medications Medications (Trade) Dose Ordered Sig/La Start Time Stop Time Status Last Admin Dose Admin Acetaminophen (Tylenol) 650 mg PRN Q4HRS PRN 09/13/17 16:30 09/14/17 16:29 Albuterol/ Ipratropium (Duoneb) 3 ml RTQID 09/13/17 20:00 09/14/17 19:59 Furosemide (Lasix) 40 mg 1X ONCE 09/13/17 17:00 09/13/17 17:01 Ondansetron HCl (Zofran) 4 mg PRN Q8HRS PRN 09/13/17 16:30 09/14/17 16:29 Allergies Allergies Allergies Coded Allergies Type Severity Reaction Last Updated Verified NSAIDS (Non-Steroidal Anti-Inflamma Allergy Intermediate 05/11/17 Yes Opioids - Morphine Analogues Allergy Intermediate 05/11/17 Yes amiodarone Allergy Intermediate 05/11/17 Yes hydrocodone Allergy Intermediate 05/11/17 Yes morphine Allergy Intermediate 05/11/17 Yes oxycodone Allergy Intermediate 05/11/17 Yes Physical Exam Physical Exam Constitutional: obese, elderly female in no acute distress while at rest HENT: Normocephalic, atraumatic Eyes: PERRLA, EOMI Neck: Normal range of motion, no tenderness Cardiovascular: irregular rhythm, Lungs & Thorax: Bilateral breath clear but difficult exam given patient's body habitus Abdomen: Bowel sounds normal, soft, no tenderness Skin: Warm, dry, no erythema Extremities: woody texture to the skin of the bilateral LE's. No liudmila edema Neurologic: Alert and oriented X 3 Psychologic: Affect normal Current Patient Data Vital Signs Vital Signs Date Time Temp Pulse Resp B/P (MAP) Pulse Ox O2 Delivery O2 Flow Rate FiO2 09/13/17 12:06 98.2 75 16 123/67 (85) 93 Room Air 6.0 98.2 Lab Values Laboratory Tests Test 09/13/17 13:10 White Blood Count 3.5 x10^3/uL (4.0-11.0) L Red Blood Count 4.31 x10^6/uL (3.50-5.40) Hemoglobin 12.0 g/dL (12.0-15.5) Hematocrit 36.8 % (36.0-47.0) Mean Corpuscular Volume 85 fL (79-100) Mean Corpuscular Hemoglobin 28 pg (25-35) Mean Corpuscular Hemoglobin Concent 33 g/dL (31-37) Red Cell Distribution Width 19.8 % (11.5-14.5) H Platelet Count 117 x10^3/uL (140-400) L Neutrophils (%) (Auto) 76 % (31-73) H Lymphocytes (%) (Auto) 18 % (24-48) L Monocytes (%) (Auto) 6 % (0-9) Eosinophils (%) (Auto) 0 % (0-3) Basophils (%) (Auto) 1 % (0-3) Neutrophils # (Auto) 2.6 x10^3uL (1.8-7.7) Lymphocytes # (Auto) 0.6 x10^3/uL (1.0-4.8) L Monocytes # (Auto) 0.2 x10^3/uL (0.0-1.1) Eosinophils # (Auto) 0.0 x10^3/uL (0.0-0.7) Basophils # (Auto) 0.0 x10^3/uL (0.0-0.2) Prothrombin Time 49.4 SEC (11.7-14.0) H Prothrombin Time INR 5.5 (0.8-1.1) *H PTT 52 SEC (24-38) H Sodium Level 139 mmol/L (136-145) Potassium Level 4.0 mmol/L (3.5-5.1) Chloride Level 102 mmol/L (98-107) Carbon Dioxide Level 28 mmol/L (21-32) Anion Gap 9 (6-14) Blood Urea Nitrogen 18 mg/dL (7-20) Creatinine 1.6 mg/dL (0.6-1.0) H Estimated GFR (Cockcroft-Gault) 31.0 Glucose Level 98 mg/dL (70-99) Calcium Level 10.1 mg/dL (8.5-10.1) Troponin I Quantitative < 0.017 ng/mL (0.000-0.055) RY-Vfs-U-Type Natriuretic Peptide 4361 pg/mL (0-449) H Laboratory Tests 09/13/17 13:10 Laboratory Tests 09/13/17 13:10 EKG EKG No STEMI Radiology/Procedures Radiology/Procedures HISTORY: Dyspnea, hypoxia Comparison is made to a study from 08/19/2017. A left-sided transvenous pacemaker remains in place with its single lead extending into the right ventricle. There has been a previous median sternotomy. The heart is moderately enlarged. The pulmonary vascularity remains prominent with loss of vascular margination. A right basilar opacity developed obscuring the hemidiaphragm, compatible with mild infiltrate and possibly pleural fluid. The patient's overlying abdominal pannus partially obscures the left base. IMPRESSION: Worsening congestive heart fire with mild right basilar infiltrate and possible pleural fluid.[] Course & Med Decision Making Course & Med Decision Making Pertinent Labs and Imaging studies reviewed. (See chart for details) Patient is evaluated in the emergency department. She does have a new oxygen requirement. Her x-rays revealing for some pulmonary edema that is worse compared to the last x-ray. The patient is comfortable at rest but becomes dyspneic with the slightest movements and sometimes with conversation. Additionally, she has INR of 5.5. She has no complaints of active bleeding. In the emergency department, she was given some Lasix. I discussed this patient with her primary care physician's who will admit primarily. The patient normally follows with cardiology at [facility]. Cardiology consult was placed for the [facility] to evaluate her during this hospitalization. Dragon Disclaimer Dragon Disclaimer This electronic medical record was generated, in whole or in part, using a voice recognition dictation system. Departure Departure Referrals: TOÑITO PEREYRA MD (PCP) RIVER JIMENES DO Sep 13, 2017 15:30
[2017-09-13] MEDS ORDERED: ACETAMINOPHEN 325 MG TABLET. PO PRN ×2 (16:30→23:30)
[2017-09-13] MEDS ORDERED: ONDANSETRON PF 4 MG/2 ML VIAL. IV PRN (16:30)
[2017-09-13] MEDS ORDERED: FUROSEMIDE 40 MG/4 ML VIAL. IVP ONE (17:00)
[2017-09-13 18:52] VITALS: BP 135/61
[2017-09-13 19:00] VITALS: BP 122/69
[2017-09-13] MEDS ORDERED: ACET325T9 PO (19:55)
[2017-09-13] MEDS ORDERED: CLOT15CR4 TP (20:05)
[2017-09-13] MEDS ORDERED: CITA20TA6 PO (20:05)
[2017-09-13] MEDS ORDERED: LACT1TAB20 PO (20:06)
[2017-09-13] MEDS ORDERED: LACT1CAP19 PO (20:07)
[2017-09-13] MEDS ORDERED: PROP15DR RIGHTEYE (20:08)
[2017-09-13] MEDS ORDERED: DIPH25CA58 PO (20:09)
[2017-09-13] MEDS ORDERED: MAGN2400 PO (20:10)
[2017-09-13] MEDS ORDERED: BISA10SU55 RC (20:11)
[2017-09-13] MEDS ORDERED: NA P133E2 RC (20:11)
[2017-09-13] MEDS: IPRATRPIUM/ALBUTEROL 0.5/2.5MG 3 ML NEBU. NEB SCH (20:18)
[2017-09-13] MEDS ORDERED: POLYVINYL ALCOHOL 1.4% OPHTH SOLUTION 15ML BOTTLE. OU PRN (22:00)
[2017-09-13] MEDS: BUDESONIDE 0.5 MG/2 ML NEBU. NEB SCH (22:00)
[2017-09-13] MEDS: OXYBUTYNIN CHLORIDE 5 MG TABLET PO SCH (22:46)
[2017-09-13] MEDS: POTASSIUM CHLORIDE 10 MEQ TABLET.ER. PO SCH (22:46)
[2017-09-13] MEDS: LACTOBACILLUS RHAMNOSUS GG 1 CAPSULE. PO SCH (22:47)
[2017-09-13] MEDS: SIMETHICONE 80 MG TAB.CHEW PO SCH (22:47)
[2017-09-13] MEDS: METOPROLOL TART IMMED RELEASE 25 MG TABLET. PO SCH (22:49)
[2017-09-13] MEDS: BRIMONIDINE 0.2% OPHTH SOLUTION 5ML BOTTLE. OU SCH (22:50)
[2017-09-13] MEDS: DORZOLAMIDE 2% OPHTH SOLUTION 10ML BOTTLE. OU SCH (22:50)
[2017-09-13] MEDS: NYSTATIN TOPICAL POWDER 15GM BOTTLE. TP SCH (22:50)
[2017-09-13] MEDS: LATANOPROST 0.005% OPHTH SOLUTION 2.5ML BOTTLE. OU SCH (22:58)
[2017-09-13 23:00] VITALS: BP 131/76
[2017-09-13] MEDS: cycloSPORINE 0.05% OPTH 1 DROP DROPERETTE OU SCH (23:03)
[2017-09-14 03:00] VITALS: BP 128/70
[2017-09-14 05:46] LABS: BASO % 1 % (0-3); EOS % 0 % (0-3); HEMATOCRIT 35.1 % (36.0-47.0); HEMOGLOBIN 11.3 g/dL (12.0-15.5); LYMPH # 0.5 x10^3/uL (1.0-4.8); LYMPH % 14 % (24-48); MEAN CORPUSCULAR HEMOGLOBIN 28 pg (25-35); MEAN CORPUSCULAR HGB CONC 32 g/dL (31-37); MEAN CORPUSCULAR VOLUME 86 fL (79-100); MONO # 0.2 x10^3/uL (0.0-1.1); MONO % 7 % (0-9); NEUT # 2.8 x10^3uL (1.8-7.7); NEUT % 78 % (31-73); PLATELET COUNT 100 x10^3/uL (140-400); RED BLOOD COUNT 4.09 x10^6/uL (3.50-5.40); RED CELL DISTRIBUTION WIDTH 19.2 % (11.5-14.5); WHITE BLOOD COUNT 3.5 x10^3/uL (4.0-11.0)
[2017-09-14 06:01] LABS: CALCIUM 10.2 mg/dL (8.5-10.1); CREATININE 1.6 mg/dL (0.6-1.0); POTASSIUM 4.2 mmol/L (3.5-5.1)
[2017-09-14 07:00] VITALS: BP 126/78
[2017-09-14] MEDS: IPRATRPIUM/ALBUTEROL 0.5/2.5MG 3 ML NEBU. NEB SCH ×4 (07:21→19:24)
[2017-09-14] MEDS: BUDESONIDE 0.5 MG/2 ML NEBU. NEB SCH ×2 (07:21→19:25)
[2017-09-14] MEDS: OXYBUTYNIN CHLORIDE 5 MG TABLET PO SCH ×2 (08:30→20:38)
[2017-09-14] MEDS: LACTOBACILLUS RHAMNOSUS GG 1 CAPSULE. PO SCH ×2 (08:30→20:38)
[2017-09-14] MEDS: BRIMONIDINE 0.2% OPHTH SOLUTION 5ML BOTTLE. OU SCH ×2 (08:30→20:40)
[2017-09-14] MEDS: POTASSIUM CHLORIDE 10 MEQ TABLET.ER. PO SCH ×2 (08:30→20:38)
[2017-09-14] MEDS: METOPROLOL TART IMMED RELEASE 25 MG TABLET. PO SCH ×2 (08:30→20:39)
[2017-09-14] MEDS: SIMETHICONE 80 MG TAB.CHEW PO SCH ×2 (08:30→20:38)
[2017-09-14] MEDS: NYSTATIN TOPICAL POWDER 15GM BOTTLE. TP SCH ×2 (08:30→20:40)
[2017-09-14] MEDS: DORZOLAMIDE 2% OPHTH SOLUTION 10ML BOTTLE. OU SCH ×2 (08:31→20:40)
[2017-09-14] MEDS: POLYVINYL ALCOHOL 1.4% OPHTH SOLUTION 15ML BOTTLE. OD SCH ×4 (08:31→20:40)
[2017-09-14] MEDS ORDERED: NON FORMULARY ITEM (Ipratropium/Albuterol Sulfate (Combivent Respimat Inhal) 2 INH) IH SCH (09:00)
--- NOTE | 2017-09-14 09:00 | PDOC ---
PROGRESS NOTES Subjective Subjective Patient reports breathing seems OK today. Objective Objective Vital Signs Date Time Temp Pulse Resp B/P (MAP) Pulse Ox O2 Delivery O2 Flow Rate FiO2 09/14/17 08:30 71 128/70 09/14/17 07:29 Venturi Mask 15.0 09/14/17 07:23 96 09/14/17 03:00 97.5 18 97.5 Intake and Output 09/14/17 07:00 Intake Total 440 ml Balance 440 ml Intake Oral 440 ml # Voids 3 # Bowel Movements 1 Physical Exam Abdomen: Normal bowel sounds, Soft, No tenderness Heart: Other (irregularly irregular) Extremities: No edema General: Alert, No acute distress Lungs: Other (BS decreased throughout, no wheezes or crackles heard) Plan Plan of Care 1. AE CHF with hypoxia - some increased fluid seen on CXR at admission. Patient appears to have been taking her usual diuretics at senior care. Cardiology consult pending. 2. chronic afib - stable, continue her usual meds for rate control. INR over 5 at admission so Coumadin on hold. Appears to have been given Coumadin 5mg daily at senior care (her usual dose is lower than that). Follow INR and resume Coumadin at lower dose when indicated. 3. chronic respiratory failure with COPD - appears stable, avoid CO2 retention by keeping O2 at 3L per NC. 4. CKD III - stable on lab. 5. dysphagia - swallow study done 2 admissions ago and mechanical soft diet recommended by [facility]. 6. HTN - continue home meds. 7. glucose intolerance - ADA diet. 8. debility - continue PT and OT. Comment Review of Relevant I have reviewed the following items muna (where applicable) has been applied. Labs Laboratory Tests Test 09/13/17 13:10 09/13/17 19:19 09/13/17 22:30 09/14/17 05:15 White Blood Count 3.5 x10^3/uL (4.0-11.0) 3.5 x10^3/uL (4.0-11.0) Red Blood Count 4.31 x10^6/uL (3.50-5.40) 4.09 x10^6/uL (3.50-5.40) Hemoglobin 12.0 g/dL (12.0-15.5) 11.3 g/dL (12.0-15.5) Hematocrit 36.8 % (36.0-47.0) 35.1 % (36.0-47.0) Mean Corpuscular Volume 85 fL (79-100) 86 fL (79-100) Mean Corpuscular Hemoglobin 28 pg (25-35) 28 pg (25-35) Mean Corpuscular Hemoglobin Concent 33 g/dL (31-37) 32 g/dL (31-37) Red Cell Distribution Width 19.8 % (11.5-14.5) 19.2 % (11.5-14.5) Platelet Count 117 x10^3/uL (140-400) 100 x10^3/uL (140-400) Neutrophils (%) (Auto) 76 % (31-73) 78 % (31-73) Lymphocytes (%) (Auto) 18 % (24-48) 14 % (24-48) Monocytes (%) (Auto) 6 % (0-9) 7 % (0-9) Eosinophils (%) (Auto) 0 % (0-3) 0 % (0-3) Basophils (%) (Auto) 1 % (0-3) 1 % (0-3) Neutrophils # (Auto) 2.6 x10^3uL (1.8-7.7) 2.8 x10^3uL (1.8-7.7) Lymphocytes # (Auto) 0.6 x10^3/uL (1.0-4.8) 0.5 x10^3/uL (1.0-4.8) Monocytes # (Auto) 0.2 x10^3/uL (0.0-1.1) 0.2 x10^3/uL (0.0-1.1) Eosinophils # (Auto) 0.0 x10^3/uL (0.0-0.7) 0.0 x10^3/uL (0.0-0.7) Basophils # (Auto) 0.0 x10^3/uL (0.0-0.2) 0.0 x10^3/uL (0.0-0.2) Prothrombin Time 49.4 SEC (11.7-14.0) Prothromb Time International Ratio 5.5 (0.8-1.1) Activated Partial Thromboplast Time 52 SEC (24-38) Sodium Level 139 mmol/L (136-145) 140 mmol/L (136-145) Potassium Level 4.0 mmol/L (3.5-5.1) 4.2 mmol/L (3.5-5.1) Chloride Level 102 mmol/L (98-107) 105 mmol/L (98-107) Carbon Dioxide Level 28 mmol/L (21-32) 28 mmol/L (21-32) Anion Gap 9 (6-14) 7 (6-14) Blood Urea Nitrogen 18 mg/dL (7-20) 17 mg/dL (7-20) Creatinine 1.6 mg/dL (0.6-1.0) 1.6 mg/dL (0.6-1.0) Estimated GFR (Cockcroft-Gault) 31.0 31.0 Glucose Level 98 mg/dL (70-99) 93 mg/dL (70-99) Calcium Level 10.1 mg/dL (8.5-10.1) 10.2 mg/dL (8.5-10.1) Troponin I Quantitative < 0.017 ng/mL (0.000-0.055) < 0.017 ng/mL (0.000-0.055) < 0.017 ng/mL (0.000-0.055) EA-Hvw-D-Type Natriuretic Peptide 4361 pg/mL (0-449) Laboratory Tests Test 09/13/17 13:10 09/13/17 19:19 09/13/17 22:30 09/14/17 05:15 White Blood Count 3.5 x10^3/uL (4.0-11.0) 3.5 x10^3/uL (4.0-11.0) Red Blood Count 4.31 x10^6/uL (3.50-5.40) 4.09 x10^6/uL (3.50-5.40) Hemoglobin 12.0 g/dL (12.0-15.5) 11.3 g/dL (12.0-15.5) Hematocrit 36.8 % (36.0-47.0) 35.1 % (36.0-47.0) Mean Corpuscular Volume 85 fL (79-100) 86 fL (79-100) Mean Corpuscular Hemoglobin 28 pg (25-35) 28 pg (25-35) Mean Corpuscular Hemoglobin Concent 33 g/dL (31-37) 32 g/dL (31-37) Red Cell Distribution Width 19.8 % (11.5-14.5) 19.2 % (11.5-14.5) Platelet Count 117 x10^3/uL (140-400) 100 x10^3/uL (140-400) Neutrophils (%) (Auto) 76 % (31-73) 78 % (31-73) Lymphocytes (%) (Auto) 18 % (24-48) 14 % (24-48) Monocytes (%) (Auto) 6 % (0-9) 7 % (0-9) Eosinophils (%) (Auto) 0 % (0-3) 0 % (0-3) Basophils (%) (Auto) 1 % (0-3) 1 % (0-3) Neutrophils # (Auto) 2.6 x10^3uL (1.8-7.7) 2.8 x10^3uL (1.8-7.7) Lymphocytes # (Auto) 0.6 x10^3/uL (1.0-4.8) 0.5 x10^3/uL (1.0-4.8) Monocytes # (Auto) 0.2 x10^3/uL (0.0-1.1) 0.2 x10^3/uL (0.0-1.1) Eosinophils # (Auto) 0.0 x10^3/uL (0.0-0.7) 0.0 x10^3/uL (0.0-0.7) Basophils # (Auto) 0.0 x10^3/uL (0.0-0.2) 0.0 x10^3/uL (0.0-0.2) Prothrombin Time 49.4 SEC (11.7-14.0) Prothromb Time International Ratio 5.5 (0.8-1.1) Activated Partial Thromboplast Time 52 SEC (24-38) Sodium Level 139 mmol/L (136-145) 140 mmol/L (136-145) Potassium Level 4.0 mmol/L (3.5-5.1) 4.2 mmol/L (3.5-5.1) Chloride Level 102 mmol/L (98-107) 105 mmol/L (98-107) Carbon Dioxide Level 28 mmol/L (21-32) 28 mmol/L (21-32) Anion Gap 9 (6-14) 7 (6-14) Blood Urea Nitrogen 18 mg/dL (7-20) 17 mg/dL (7-20) Creatinine 1.6 mg/dL (0.6-1.0) 1.6 mg/dL (0.6-1.0) Estimated GFR (Cockcroft-Gault) 31.0 31.0 Glucose Level 98 mg/dL (70-99) 93 mg/dL (70-99) Calcium Level 10.1 mg/dL (8.5-10.1) 10.2 mg/dL (8.5-10.1) Troponin I Quantitative < 0.017 ng/mL (0.000-0.055) < 0.017 ng/mL (0.000-0.055) < 0.017 ng/mL (0.000-0.055) KO-Yxd-M-Type Natriuretic Peptide 4361 pg/mL (0-449) Medications Current Medications Furosemide (Lasix) 40 mg 1X ONCE IVP Last administered on 09/13/17at 17:21; Start 09/13/17 at 17:00; Stop 09/13/17 at 17:01; Status DC Ondansetron HCl (Zofran) 4 mg PRN Q8HRS PRN IV NAUSEA/VOMITING; Start 09/13/17 at 16:30; Stop 09/14/17 at 16:29 Acetaminophen (Tylenol) 650 mg PRN Q4HRS PRN PO FEVER; Start 09/13/17 at 16:30; Stop 09/13/17 at 23:31; Status DC Albuterol/ Ipratropium (Duoneb) 3 ml RTQID NEB Last administered on 09/14/17at 07 :21; Start 09/13/17 at 20:00 Cyclosporine (Restasis) 1 drop BID OU Last administered on 09/13/17at 23:03; Start 09/13/17 at 22:00 Diphenhydramine HCl (Benadryl) 25 mg PRN QHS PRN PO INSOMNIA 1ST CHOICE; Start 09/13/17 at 21:45 Lactobacillus Rhamnosus (Culturelle) 1 cap BID PO Last administered on 08:30; Start 09/13/17 at 22:00 Metoprolol Tartrate (Lopressor) 25 mg BID PO Last administered on 09/14/17 08: 30; Start 09/13/17 at 22:00 Nystatin (Nystop) 1 jessenia BID TP Last administered on 09/14/17 08:30; Start at 22:00 Potassium Chloride (Klor-Con) 10 meq BID PO Last administered on 09/14/17 08:30 ; Start 09/13/17 at 22:00 Dorzolamide HCl (Trusopt) 1 drop BID OU Last administered on 09/14/17 08:31; Start 09/13/17 at 22:00 Budesonide (Pulmicort) 0.5 mg RTBID NEB Last administered on 09/14/17 07:21; Start 09/13/17 at 22:00 Artificial Tears (Artificial Tears) 1 drop PRN Q2HR PRN OU DRY EYE; Start at 22:00 Latanoprost (Xalatan) 1 drop QHS OU Last administered on 09/13/17at 22:58; Start 09/13/17 at 22:00 Oxybutynin Chloride (Ditropan) 5 mg BID PO Last administered on 09/14/17 08:30 ; Start 09/13/17 at 22:00 Artificial Tears (Artificial Tears) 1 drop QID OD Last administered on 08:31; Start 09/14/17 at 09:00 Simethicone (Gas-X) 80 mg BID PO Last administered on 09/14/17 08:30; Start 09/13/17 at 22:00 Brimonidine Tartrate (Alphagan) 1 drop BID OU Last administered on 09/14/17 08: 30; Start 09/13/17 at 22:00 Acetaminophen (Tylenol) 650 mg PRN Q6HRS PRN PO MILD PAIN / TEMP; Start at 23:30 Active Scripts Active Culturelle (Lactobacillus Rhamnosus Gg) 1 Each Cap.sprink 1 Cap PO BID 14 Days Furosemide 80 Mg Tablet 1 Tab PO BID Pravastatin Sodium 20 Mg Tablet 1 Tab PO DAILY Nystop (Nystatin) 1 Jessenia Jessenia 1 Jessenia TP BID Reported Benadryl (Diphenhydramine Hcl) 25 Mg Capsule 1 Cap PO QHS Systane 0.3-0.4% Eye Drops (Propylene Glycol/Peg 400) 15 Ml Drops 1 Drop RIGHTEYE QID Citalopram Hbr (Citalopram Hydrobromide) 20 Mg Tablet 1 Tab PO DAILY Tylenol (Acetaminophen) 325 Mg Tablet 650 Mg PO [id number] Combivent Respimat Inhal (Ipratropium/Albuterol Sulfate) 4 Gm Aer.w.adap 2 Inh IH QID Systane Gel (Hypromellose) 10 Gm Gel..gram. 10 Gm OP Latanoprost 2.5 Ml Drops 1 Drop EACHEYE QHS Simethicone 180 Mg Capsule 125 Mg PO BID Melatonin 3 Mg Tablet 10 Mg PO HS Vitamin B-12 (Cyanocobalamin (Vitamin B-12)) 1,000 Mcg Tablet 2,500 Mcg PO DAILY Warfarin Sodium 2 Mg Tablet 2.5 Mg PO DAILY Warfarin Sodium 5 Mg Tablet 1 Tab PO DAILY Diltiazem 24HR Cd (Diltiazem Hcl) 180 Mg Cap.er.24h 1 Cap PO BID Levothyroxine Sodium 112 Mcg Tablet 1 Tab PO DAILY Spironolactone 25 Mg Tablet 1 Tab PO DAILY Advair 250-50 Diskus (Fluticasone/Salmeterol) 1 Each Disk.w.dev 1 Puff IH BID Benadryl (Diphenhydramine Hcl) 25 Mg Capsule 25 Mg PO PRN PRN Potassium Chloride 10 Meq Tablet.er 1 Tab PO BID Oxybutynin Chloride Er (Oxybutynin Chloride) 5 Mg Tab.er.24 1 Tab PO BID Simbrinza 1%-0.2% Eye Drops (Brinzolamide/Brimonid Tart) 8 Ml Drops.susp 8 Ml EACHEYE BID Advanced Eye Relief Dry Eye Dp (Glycerin/Propylene Glycol) 30 Ml Drops 1 Drop OP PRN Q2HRS PRN Restasis (Cyclosporine) 1 Each Droperette 1 Drop EACHEYE BID Omeprazole 20 Mg Capsule.dr 1 Cap PO DAILY Metoprolol Tartrate 25 Mg Tablet 1 Tab PO BID Vitals/I & O Vital Sign - Last 24 Hours 09/13/17 09/13/17 09/13/17 8/6/18 12:06 17:23 18:52 19:00 Temp 98.2 97.9 97.7 98.2 97.9 97.7 Pulse 75 67 64 74 Resp 16 20 20 B/P (MAP) 123/67 (85) 120/66 (84) 135/61 (85) 122/69 (86) Pulse Ox 93 98 96 O2 Delivery Room Air Room Air Nasal Cannula O2 Flow Rate 6.0 6.0 09/13/17 09/13/17 09/13/17 09/13/17 19:40 20:24 20:40 22:49 Pulse 69 B/P (MAP) 122/59 Pulse Ox 94 93 O2 Delivery Nasal Cannula Nasal Cannula Venturi Mask O2 Flow Rate 6.0 9.0 15.0 09/13/17 09/14/17 09/14/17 09/14/17 23:00 03:00 07:23 07:29 Temp 98.1 97.5 98.1 97.5 Pulse 72 71 Resp 20 18 B/P (MAP) 131/76 (94) 128/70 (89) Pulse Ox 92 94 96 O2 Delivery NonRebreather Mask Nasal Cannula Venturi Mask Venturi Mask O2 Flow Rate 15.0 6.0 15.0 15.0 09/14/17 08:30 Pulse 71 B/P (MAP) 128/70 Intake and Output 09/13/17 09/13/17 09/14/17 15:00 23:00 07:00 Intake Total 440 ml Balance 440 ml TOÑITO PEREYRA MD Sep 14, 2017 09:00
--- NOTE | 2017-09-14 09:37 | PDOC2 ---
CARDIAC CONSULT DATE OF CONSULT Date of Consult DATE: 09/14/17 TIME: 09:32 REASON FOR CONSULT Reason for Consult: CHF REFERRING PHYSICIAN Referring Physician: Billy SOURCE Source: Chart review, Patient HISTORY OF PRESENT ILLNESS HISTORY OF PRESENT ILLNESS 82 year old female admitted through ER from [facility]. Thinks she has been there a week. Has been short of breath the entire time. ER records indicate hypoxic on presentation with O2 increased and hypoxia improved. Chronically anticoagulated with supratherapeutic INR of 5.5. History of COPD with chronic respiratory failure and recent hospitalization in August. Now denies shortness of breath. EKG: atrial fib with PVCs. PAST MEDICAL HISTORY Past Medical History Cardiovascular: AFIB, HTN, Hyperlipidemia, Valve insufficiency with previous bioprosthetic AVR, Pulmonary hypertension, Other (AAA), CADF with previous CABG Pulmonary: COPD CENTRAL NERVOUS SYSTEM: CVA GI: GERD Heme/Onc: Anemia NOS, Psych: Anxiety, Depression Musculoskeletal: Osteoarthritis Infectious disease: Other (MRSA - leg) ENT: Other (glaucoma) Renal/: Chronic renal insuff, UTI Endocrine: Diabetes (metabolic syndrome), Hypothyroidism PAST SURGICAL HISTORY Past Surgical History Pacemaker (2010), Cholecystectomy, CABG (2006) , Tubal Ligation, Other (vocal cord polyp removal. sternal repair post CABG; bioprosthetic AVR - 2009) FAMILY HISTORY Family History: Heart Disease SOCIAL HISTORY Smoke: No ALCOHOL: none Drugs: None CURRENT MEDICATIONS CURRENT MEDICATIONS Current Medications Medications (Trade) Dose Ordered Sig/La Route PRN Reason Start Time Stop Time Status Last Admin Dose Admin Furosemide (Lasix) 40 mg 1X ONCE IVP 09/13/17 17:00 09/13/17 17:01 DC 09/13/17 17:21 Albuterol/ Ipratropium (Duoneb) 3 ml RTQID NEB 09/13/17 20:00 09/14/17 07:21 Cyclosporine (Restasis) 1 drop BID OU 09/13/17 22:00 09/13/17 23:03 Lactobacillus Rhamnosus (Culturelle) 1 cap BID PO 09/13/17 22:00 09/14/17 08:30 Metoprolol Tartrate (Lopressor) 25 mg BID PO 09/13/17 22:00 09/14/17 08:30 Nystatin (Nystop) 1 long BID TP 09/13/17 22:00 09/14/17 08:30 Potassium Chloride (Klor-Con) 10 meq BID PO 09/13/17 22:00 09/14/17 08:30 Dorzolamide HCl (Trusopt) 1 drop BID OU 09/13/17 22:00 09/14/17 08:31 Budesonide (Pulmicort) 0.5 mg RTBID NEB 09/13/17 22:00 09/14/17 07:21 Latanoprost (Xalatan) 1 drop QHS OU 09/13/17 22:00 09/13/17 22:58 Oxybutynin Chloride (Ditropan) 5 mg BID PO 09/13/17 22:00 09/14/17 08:30 Artificial Tears (Artificial Tears) 1 drop QID OD 09/14/17 09:00 09/14/17 08:31 Simethicone (Gas-X) 80 mg BID PO 09/13/17 22:00 09/14/17 08:30 Brimonidine Tartrate (Alphagan) 1 drop BID OU 09/13/17 22:00 09/14/17 08:30 ALLERGIES ALLERGIES: Coded Allergies: NSAIDS (Non-Steroidal Anti-Inflamma (Verified Allergy, Intermediate, ) Opioids - Morphine Analogues (Verified Allergy, Intermediate, 05/11/17) amiodarone (Verified Allergy, Intermediate, 05/11/17) hydrocodone (Verified Allergy, Intermediate, 05/11/17) allergy to narcotic pain medications morphine (Verified Allergy, Intermediate, 05/11/17) allergic to narcotic pain medications oxycodone (Verified Allergy, Intermediate, 05/11/17) allergy to narcotic pain medications ROS General: YES: Fatigue, Malaise PSYCHOLOGICAL ROS: No: Anxiety, Behavioral Disorder, Concentration difficultie , Decreased libido, Depression, Disorientation, Hallucinations, Hostility, Irritablity, Memory difficulties, Mood Swings, Obsessive thoughts, Physical abuse, Sexual abuse, Sleep disturbances, Suicidal ideation, Other Eyes: No Blurry vision, No Decreased vision, No Double vision, No Dry eyes, No Excessive tearing, No Eye Pain, No Itchy Eyes, No Loss of vision, No Photophobia , No Scotomata, No Uses contacts, No Uses glasses, No Other HEENT: No: Heacaches, Visual Changes, Hearing change, Nasal congestion, Nasal discharge, Oral lesions, Sinus pain, Sore Throat, Epistaxis, Sneezing, Snoring, Tinnitus, Vertigo, Vocal changes, Other ALLERGY AND IMMUNOLOGY: No: Hives, Insect Bite Sensitivity, Itchy/Watery Eyes, Nasal Congestion, Post Nasal Drip, Seasonal Allergies, Other Hematological and Lymphatic: No: Bleeding Problems, Blood Clots, Blood Transfusions, Brusing, Night Sweats, Pallor, Swollen Lymph Nodes, Other ENDOCRINE: No: Breast Changes, Galactorrhea, Hair Pattern Changes, Hot Flashes , Malaise/lethargy, Mood Swings, Palpitations, Polydipsia/polyuria, Skin Changes , Temperature Intolerance, Unexpected Weight Changes, Other Respiratory: YES: Shortness of breath, SOB with excertion; No: Cough, Hemoptysis, Orthopnea, Pleuritic Pain, Sputum Changes, Stridor, Tachypnea, Wheezing, Other Cardiovascular: No Chest Pain, No Palpitations, No Orthopnea, No Paroxysmal Noc. Dyspnea, No Edema, No Lt Headedness, No Other Gastrointestinal: No Nausea, No Vomiting, No Abdominal Pain, No Diarrhea, No Constipation, No Melena, No Hematochezia, No Other Genitourinary: No Dysuria, No Frequency, No Incontinence, No Hematuria, No Retention, No Discharge, No Urgency, No Pain, No Flank Pain, No Other Musculoskeletal: No Gait Disturbance, No Joint Pain, No Joint Stiffness, No Joint Swelling, No Muscle Pain, No Muscular Weakness, No Pain In:, No Swelling In:, No Other Neurological: No Behavorial Changes, No Bowel/Bladder ControlChng, No Confusion , No Dizziness, No Gait Disturbance, No Headaches, No Impaired Coord/balance, No Memory Loss, No Numbness/Tingling, No Seizures, No Speech Problems, No Tremors, No Visual Changes, No Weakness, No Other Skin: No Dry Skin, No Eczema, No Hair Changes, No Lumps, No Mole Changes, No Mottling, No Nail Changes, No Pruritus, No Rash, No Skin Lesion Changes, No Other, No Acne PHYSICAL EXAM General: Alert, Cooperative HEENT: Atraumatic, Other (did not open eyes during interview) Heart: Other (IRRR; PPM left pectoral ) Abdomen: Soft Extremities: No edema Skin: Other (venous stasis changes bilateral LE ) Neuro: Normal speech Psych/Mental Status: Mood NL MUSCULOSKELETAL: Osteoarthritic changes both hands VITALS VITALS Vital Signs Date Time Temp Pulse Resp B/P (MAP) Pulse Ox O2 Delivery O2 Flow Rate FiO2 09/14/17 08:30 71 128/70 09/14/17 07:29 Venturi Mask 15.0 09/14/17 07:23 96 09/14/17 03:00 97.5 18 97.5 LABS Lab: Laboratory Tests Test 09/13/17 13:10 09/13/17 19:19 09/13/17 22:30 09/14/17 05:15 White Blood Count 3.5 x10^3/uL (4.0-11.0) 3.5 x10^3/uL (4.0-11.0) Red Blood Count 4.31 x10^6/uL (3.50-5.40) 4.09 x10^6/uL (3.50-5.40) Hemoglobin 12.0 g/dL (12.0-15.5) 11.3 g/dL (12.0-15.5) Hematocrit 36.8 % (36.0-47.0) 35.1 % (36.0-47.0) Mean Corpuscular Volume 85 fL (79-100) 86 fL (79-100) Mean Corpuscular Hemoglobin 28 pg (25-35) 28 pg (25-35) Mean Corpuscular Hemoglobin Concent 33 g/dL (31-37) 32 g/dL (31-37) Red Cell Distribution Width 19.8 % (11.5-14.5) 19.2 % (11.5-14.5) Platelet Count 117 x10^3/uL (140-400) 100 x10^3/uL (140-400) Neutrophils (%) (Auto) 76 % (31-73) 78 % (31-73) Lymphocytes (%) (Auto) 18 % (24-48) 14 % (24-48) Monocytes (%) (Auto) 6 % (0-9) 7 % (0-9) Eosinophils (%) (Auto) 0 % (0-3) 0 % (0-3) Basophils (%) (Auto) 1 % (0-3) 1 % (0-3) Neutrophils # (Auto) 2.6 x10^3uL (1.8-7.7) 2.8 x10^3uL (1.8-7.7) Lymphocytes # (Auto) 0.6 x10^3/uL (1.0-4.8) 0.5 x10^3/uL (1.0-4.8) Monocytes # (Auto) 0.2 x10^3/uL (0.0-1.1) 0.2 x10^3/uL (0.0-1.1) Eosinophils # (Auto) 0.0 x10^3/uL (0.0-0.7) 0.0 x10^3/uL (0.0-0.7) Basophils # (Auto) 0.0 x10^3/uL (0.0-0.2) 0.0 x10^3/uL (0.0-0.2) Prothrombin Time 49.4 SEC (11.7-14.0) Prothromb Time International Ratio 5.5 (0.8-1.1) Activated Partial Thromboplast Time 52 SEC (24-38) Sodium Level 139 mmol/L (136-145) 140 mmol/L (136-145) Potassium Level 4.0 mmol/L (3.5-5.1) 4.2 mmol/L (3.5-5.1) Chloride Level 102 mmol/L (98-107) 105 mmol/L (98-107) Carbon Dioxide Level 28 mmol/L (21-32) 28 mmol/L (21-32) Anion Gap 9 (6-14) 7 (6-14) Blood Urea Nitrogen 18 mg/dL (7-20) 17 mg/dL (7-20) Creatinine 1.6 mg/dL (0.6-1.0) 1.6 mg/dL (0.6-1.0) Estimated GFR (Cockcroft-Gault) 31.0 31.0 Glucose Level 98 mg/dL (70-99) 93 mg/dL (70-99) Calcium Level 10.1 mg/dL (8.5-10.1) 10.2 mg/dL (8.5-10.1) Troponin I Quantitative < 0.017 ng/mL (0.000-0.055) < 0.017 ng/mL (0.000-0.055) < 0.017 ng/mL (0.000-0.055) LD-Sjs-L-Type Natriuretic Peptide 4361 pg/mL (0-449) IMAGES IMAGES 08/20/2017: CT chest: 1. No consolidative pneumonia or congestive failure. Respiratory motion artifact limits evaluation of the lungs. There is a groundglass opacity in the right middle lobe that is slightly larger. Opacity may be infectious or inflammatory. Recommend CT follow-up in 3-6 months. 2. Upper lung centrilobular emphysema. 3. Moderate cardiomegaly. 4. Infrarenal abdominal aortic aneurysm. 5. Calcified pleural plaques suggest prior asbestos exposure. 09/13/2017: CXR: Comparison is made to a study from 08/19/2017. A left-sided transvenous pacemaker remains in place with its single lead extending into the right ventricle. There has been a previous median sternotomy. The heart is moderately enlarged. The pulmonary vascularity remains prominent with loss of vascular margination. A right basilar opacity developed obscuring the hemidiaphragm, compatible with mild infiltrate and possibly pleural fluid. The patient's overlying abdominal pannus partially obscures the left base. IMPRESSION: Worsening congestive heart fire with mild right basilar infiltrate and possible pleural fluid. EKG EKG atrial fib with PVCs ECHOCARDIOGRAM ECHOCARDIOGRAM 05/2017: TTE: Grossly normal LV systolic function. EF 55% Septal motion suggestive of conduction defect. Otherwise, grossly normal wall motion. There is a bioprosthetic aortic valve prosthesis. The prosthetic aortic valve is not well visualized. The maximum velocity of the porcine valve is 3.4 m/sec, a maximum Pg is 46 mmHg and a mean Pg is 28 mmHg. Doppler and Color Flow revealed moderate to severe tricuspid regurgitation. There is moderate pulmonary hypertension. PASP is 55mmHg. Biatrial enlargement. Probable right sided pacemaker. ASSESSMENT/PLAN ASSESSMENT/PLAN 1. acute on chronic respiratory failure --improved symptoms -O2 weaning down 2. acute on chronic diastolic HF --BP controlled now --home diuretics resumed --TTE in August with findings above 3. chronic atrial fib --rate controlled with BB and CCB --INR supratherapeutic -- on hold, defer to PCP 4. 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 PPM in situ --brand unknown TONI ODONNELL APRN Sep 14, 2017 09:36
[2017-09-14] MEDS: LEVOTHYROXINE 112 MCG TABLET PO SCH (10:34)
[2017-09-14] MEDS: FUROSEMIDE 80 MG TABLET. PO SCH ×2 (10:34→14:45)
[2017-09-14] MEDS: PANTOPRAZOLE 40 MG TABLET.DR. PO SCH (10:34)
[2017-09-14] MEDS: SPIRONOLACTONE 25 MG TABLET PO SCH (10:34)
[2017-09-14] MEDS: cycloSPORINE 0.05% OPTH 1 DROP DROPERETTE OU SCH ×2 (10:35→20:40)
[2017-09-14] MEDS: CITALOPRAM 20 MG TABLET. PO SCH (10:35)
[2017-09-14] MEDS: CYANOCOBALAMIN (VITAMIN B-12) 1,000 MCG TABLET. PO SCH (10:35)
--- NOTE | 2017-09-14 10:52 | HP ---
ADMIT DATE: 09/13/2017 CHIEF COMPLAINT: Shortness of breath. HISTORY OF PRESENT ILLNESS: The patient is an 82-year-old female with a history of chronic respiratory failure due to COPD, and diastolic congestive heart failure. She is normally on oxygen 3 liters per nasal cannula. She has been staying at the [facility] after hospitalization last month. She was apparently sent to the Emergency Room on the day of admission when the staff there noticed that she was hypoxic on her usual oxygen. Evaluation in the Emergency Room showed the patient to be mildly hypoxic initially with a saturation of 84%, but no respiratory distress. A chest x-ray was suggestive of increased pulmonary vascular congestion. The patient was given one dose of Lasix and admitted for further care. PAST MEDICAL HISTORY: Chronic respiratory failure with COPD, dysphagia, chronic atrial fibrillation, hypertension, hypothyroidism, chronic kidney disease stage 3, glucose intolerance, hyperlipidemia, previous CVA, glaucoma, abdominal aortic aneurysm. PAST SURGICAL HISTORY: Tubal ligation, cholecystectomy, CABG x 4 in 03/17, MRSA infection to the leg 06/14, porcine aortic valve replacement 07/18, pacemaker placement in 07/19. ALLERGIES: THE PATIENT IS ALLERGIC TO NSAIDS OPIOIDS AND AMIODARONE. HOME MEDICATIONS: DuoNeb 4 times a day and as needed; pravastatin 20 mg daily; oxybutynin ER 5 mg daily; spironolactone 25 mg daily; citalopram 20 mg daily; furosemide 80 mg b.i.d.; Cardizem CD 180 mg b.i.d.; omeprazole 20 mg daily; levothyroxine 112 mcg daily; metoprolol tartrate 25 mg b.i.d.; Advair 250/50 one puff b.i.d.; eyedrops including latanoprost, Systane and Simbrinza; melatonin 10 mg at bedtime; potassium 10 mEq b.i.d. The patient was also apparently receiving Coumadin 5 mg daily and may still have been on prednisone 10 mg daily taper from her last hospital stay. FAMILY HISTORY: Noncontributory. SOCIAL HISTORY: The patient is . She is a retired [employer]. She is a former smoker, but has not smoked in over 5 years. She does not drink alcohol to excess. She lives with her daughter. REVIEW OF SYSTEMS: The patient denies fever or chills. She denies chest pain or palpitations. She does not remember if she felt short of breath yesterday, but denies shortness of breath today. She denies abdominal pain, nausea or vomiting. She denies problems, choking or swallowing her food recently. She denies swelling in her legs. PHYSICAL EXAMINATION: GENERAL: The patient is alert and oriented to person and place, sitting up in bed in no acute distress. HEENT: PERRL. EOMI. Sclerae clear. Oropharynx: Mucous membranes moist. The patient is edentulous. NECK: Supple, without lymphadenopathy. CHEST: Breath sounds decreased throughout, but otherwise clear to auscultation. No wheezes or crackles heard. CARDIOVASCULAR: Irregularly irregular. ABDOMEN: Soft, nontender, normoactive bowel sounds are present. EXTREMITIES: Bilateral lower extremities: some chronic venous stasis changes are present, but there is no edema at this time. ASSESSMENT AND PLAN: 1. Acute exacerbation of congestive heart failure with hypoxia. There was some increase in fluid seen on the chest x-ray at admission. The patient appears to have been taking her usual diuretics at [facility]. Three troponins are completely within normal limits and the patient does not complain of chest pain. A consult with Cardiology is pending at this time. We will continue her usual diuretics for now. 2. Chronic atrial fibrillation, this appears stable. We will continue her usual medications for rate control. The patient's INR was over 5 at admission. It appears that she was being given an increased dose of Coumadin at [facility] compared to her usual dose where she takes the 5 mg 4 times a week and 2.5 mg 3 days weekly. We will hold her Coumadin and follow her INR. Plan to resume the Coumadin at her usual lower dose when indicated. 3. Chronic respiratory failure with chronic obstructive pulmonary disease. This appears stable at this time. We will avoid CO2 retention by keeping her oxygen at about 3 liters per nasal cannula. Continue her on her usual nebulizer treatments. 4. Chronic kidney disease stage 3, this is stable on lab. 5. Dysphagia. Swallow study done two admissions ago by Speech Therapy showed some mild swallowing problems with solid foods like meat and a mechanical soft diet was recommended. This diet has been ordered. 6. Hypertension. Continue home medications. 7. Glucose intolerance. An ADA diet has been ordered. 8. Debility. Continue PT and OT. TOÑITO PEREYRA MD DR: Alvaro JOB#: [id number] / [id number] CARLOS
[2017-09-14 11:00] VITALS: BP 120/67
[2017-09-14] MEDS ORDERED: IPRATRPIUM/ALBUTEROL 0.5/2.5MG 3 ML NEBU. NEB SCH (12:00)
[2017-09-14 14:15] LABS: BASE EXCESS ABG 0 mmol/L (-3-3); HCO3 ABG 24 mmol/L (21-28); PCO2 ABG 38 mmHg (35-46); PO2 ABG 51 mmHg (65-108); SAT O2 ABG 85 % (92-99)
[2017-09-14 14:16] LABS: FIO2 ABG 44
[2017-09-14 15:00] VITALS: BP 124/64
--- NOTE | 2017-09-14 15:34 | CONS ---
DATE OF CONSULTATION: ATTENDING PHYSICIAN: Dr. Lees. REASON FOR CONSULTATION: Respiratory failure. HISTORY OF PRESENT ILLNESS: The patient is an 82-year-old female who has history of chronic respiratory failure, on home oxygen at 3 liters; history of diastolic congestive heart failure; and COPD. She was at [facility]. She was brought into the Emergency Room with complaint of shortness of breath. She was noted to be hypoxic. Her saturations were 84%. She has been coughing, unable to bring up any phlegm. No chest pains. She has increasing lower extremity edema and venous stasis. The patient's chest x-ray was reviewed by me and is consistent with congestive heart failure. She has bilateral interstitial infiltrates along with a small left pleural effusion and evidence of cardiomegaly as well. Her last echo was in 05/2017, at that time she had an ejection fraction of 55%. She has a bioprosthetic aortic valve and pulmonary artery pressure was 55. Consultation requested for further evaluation and management. PAST MEDICAL HISTORY: History of chronic respiratory failure with COPD, history of home oxygen at 3 liters, dysphagia, chronic atrial fibrillation, hypertension, hypothyroidism, CKD stage 3, glucose intolerance, previous CVA, glaucoma, and abdominal aortic aneurysm. PAST SURGICAL HISTORY: Tubal ligation, cholecystectomy, CABG, MRSA infection to the leg, porcine aortic valve replacement, and pacemaker. ALLERGIES: NONSTEROIDALS, OPIATES and AMIODARONE. REVIEW OF SYSTEMS: Reviewed. Has positive shortness of breath. Positive cough. No chest pain, no nausea or vomiting, no diarrhea, no dysuria. Has lower extremity edema, no focal weakness. Has some venous stasis in the lower extremities. FAMILY HISTORY: Noncontributory to lungs. SOCIAL HISTORY: She is a former smoker, has quit tobacco 5 years ago, but smoked most of her life. MEDICATIONS: All reviewed, as listed in the MRAD, including spironolactone and oral Lasix along with bronchodilators. PHYSICAL EXAMINATION: GENERAL: She appears to be mildly tachypneic. VITAL SIGNS: Blood pressure 120/67, pulse ox 88% on 6 liters. She is currently on a Ventimask. HEENT: Sclerae nonicteric. NECK: Supple. LUNGS: With anterior rhonchi. CARDIOVASCULAR: Regular rate. ABDOMEN: Soft. EXTREMITIES: Bilateral pitting edema and venous stasis. LABORATORY DATA: Labs are reviewed. BUN 17, creatinine 1.6. ProBNP 4361. INR is 5.5. ABGs with a pH of 7.43, pCO2 of 30 and a pO2 of 51 on 44% FiO2. White cell count 3.5, hemoglobin 11.3. IMPRESSION: 1. [id number] hypoxic respiratory failure secondary to [id number]-[id number] diastolic heart failure. 2. Bdybm-ja-zbfenbu diastolic heart failure. 3. Underlying chronic obstructive pulmonary disease with oxygen dependence. 4. Abnormal chest x-ray with worsening interstitial edema and a small left pleural effusion. 5. Leukopenia. 6. Chronic kidney disease stage 3. 7. Coagulopathy. RECOMMENDATIONS: 1. We will need aggressive diuresis. 2. If clinically does not improve, may need BiPAP. 3. Continue bronchodilators. 4. Follow chest x-ray post-diuresis. 5. Continue DuoNebs. 6. Follow Cardiology's recommendations. 7. Monitor white cell count. 8. Discussed with RN. We will follow along with you. THADDEUS LYNCH MD DR: SHASHI/melissa JOB#: [id number] / [id number]
[2017-09-14] MEDS ORDERED: FUROSEMIDE 40 MG/4 ML VIAL. IVP ONE (15:45)
--- NOTE | 2017-09-14 15:49 | PDOC2 ---
GI CONSULT Reason For Consult: Dysphagia HPI: HPI: 82 y/o female admitted from [facility] w/ hypoxia, admitted w/ acute on chronic resp failure/CHF. This morning tried to take pills w/ water, RN says coughed and choked. Later unable to tolerate sip of water or stuffing for lunch - each time tries to swallow and then coughs up liquid/food. Daughter not present, but RN says she has reports difficulty swallowing different "textures" for the last couple weeks/months. Not clear what diet she was following at [facility]. Did have FINANCIAL SERVICES SALES REPRESENTATIVE eval in 05/2017 - recs for regular diet w/ thin liquids. Plans to start BiPAP, also for FINANCIAL SERVICES SALES REPRESENTATIVE eval. H/o dysphagia and esophageal dilations in the past. EGD on 08/15/[address] Antoine for food bolus: chicken (pushed into stomach - mucosal erosions noted w /o narrowing), normal stomach, normal duodenum. H/o GERD on PPI. Says stooling normally. I believe has abdominal pain related to coughing. No bleeding reported. No previous colonoscopy. S/p cholecystectomy. No PUD, liver, or pancreas history. PMH: PMH: AFIB, HTN, HLD, pulmonary HTN, AAA, CAD s/p CABG, COPD on O2, CVA, GERD, anemia , anxiety, depression, OA, MRSA, glaucoma, CKD, UTI, DM, hypothyroidism, pacemaker, cholecystectomy, tubal ligation, vocal cord polyp removal, AVR on Warfarin FH: Family History: No pertinent hx Social History: Smoke: Quit ALCOHOL: none Drugs: None ROS: Difficult to obtain w/ resp status. Vitals: Vitals: Vital Signs Date Time Temp Pulse Resp B/P (MAP) Pulse Ox O2 Delivery O2 Flow Rate FiO2 09/14/17 13:45 88 Nasal Cannula 6.0 09/14/17 11:00 98.6 66 20 120/67 (84) 98.6 Labs: Labs: Laboratory Tests Test 09/13/17 19:19 09/13/17 22:30 09/14/17 05:15 09/14/17 13:30 Troponin I Quantitative < 0.017 ng/mL (0.000-0.055) < 0.017 ng/mL (0.000-0.055) White Blood Count 3.5 x10^3/uL (4.0-11.0) Red Blood Count 4.09 x10^6/uL (3.50-5.40) Hemoglobin 11.3 g/dL (12.0-15.5) Hematocrit 35.1 % (36.0-47.0) Mean Corpuscular Volume 86 fL (79-100) Mean Corpuscular Hemoglobin 28 pg (25-35) Mean Corpuscular Hemoglobin Concent 32 g/dL (31-37) Red Cell Distribution Width 19.2 % (11.5-14.5) Platelet Count 100 x10^3/uL (140-400) Neutrophils (%) (Auto) 78 % (31-73) Lymphocytes (%) (Auto) 14 % (24-48) Monocytes (%) (Auto) 7 % (0-9) Eosinophils (%) (Auto) 0 % (0-3) Basophils (%) (Auto) 1 % (0-3) Neutrophils # (Auto) 2.8 x10^3uL (1.8-7.7) Lymphocytes # (Auto) 0.5 x10^3/uL (1.0-4.8) Monocytes # (Auto) 0.2 x10^3/uL (0.0-1.1) Eosinophils # (Auto) 0.0 x10^3/uL (0.0-0.7) Basophils # (Auto) 0.0 x10^3/uL (0.0-0.2) Sodium Level 140 mmol/L (136-145) Potassium Level 4.2 mmol/L (3.5-5.1) Chloride Level 105 mmol/L (98-107) Carbon Dioxide Level 28 mmol/L (21-32) Anion Gap 7 (6-14) Blood Urea Nitrogen 17 mg/dL (7-20) Creatinine 1.6 mg/dL (0.6-1.0) Estimated GFR (Cockcroft-Gault) 31.0 Glucose Level 93 mg/dL (70-99) Calcium Level 10.2 mg/dL (8.5-10.1) O2 Saturation 85 % (92-99) Arterial Blood pH 7.43 (7.35-7.45) Arterial Blood pCO2 at Patient Temp 38 mmHg (35-46) Arterial Blood pO2 at Patient Temp 51 mmHg (65-108) Arterial Blood HCO3 24 mmol/L (21-28) Arterial Blood Base Excess 0 mmol/L (-3-3) FiO2 44 Allergies: Coded Allergies: NSAIDS (Non-Steroidal Anti-Inflamma (Verified Allergy, Intermediate, ) Opioids - Morphine Analogues (Verified Allergy, Intermediate, 05/11/17) amiodarone (Verified Allergy, Intermediate, 05/11/17) hydrocodone (Verified Allergy, Intermediate, 05/11/17) allergy to narcotic pain medications morphine (Verified Allergy, Intermediate, 05/11/17) allergic to narcotic pain medications oxycodone (Verified Allergy, Intermediate, 05/11/17) allergy to narcotic pain medications Medications: Current Medications Medications (Trade) Dose Ordered Sig/La Route PRN Reason Start Time Stop Time Status Last Admin Dose Admin Furosemide (Lasix) 40 mg 1X ONCE IVP 09/13/17 17:00 09/13/17 17:01 DC 09/13/17 17:21 Albuterol/ Ipratropium (Duoneb) 3 ml RTQID NEB 09/13/17 20:00 09/14/17 11:25 Cyclosporine (Restasis) 1 drop BID OU 09/13/17 22:00 09/14/17 10:35 Lactobacillus Rhamnosus (Culturelle) 1 cap BID PO 09/13/17 22:00 09/14/17 08:30 Metoprolol Tartrate (Lopressor) 25 mg BID PO 09/13/17 22:00 09/14/17 08:30 Nystatin (Nystop) 1 long BID TP 09/13/17 22:00 09/14/17 08:30 Potassium Chloride (Klor-Con) 10 meq BID PO 09/13/17 22:00 09/14/17 08:30 Dorzolamide HCl (Trusopt) 1 drop BID OU 09/13/17 22:00 09/14/17 08:31 Budesonide (Pulmicort) 0.5 mg RTBID NEB 09/13/17 22:00 09/14/17 07:21 Latanoprost (Xalatan) 1 drop QHS OU 09/13/17 22:00 09/13/17 22:58 Oxybutynin Chloride (Ditropan) 5 mg BID PO 09/13/17 22:00 09/14/17 08:30 Artificial Tears (Artificial Tears) 1 drop QID OD 09/14/17 09:00 09/14/17 14:46 Simethicone (Gas-X) 80 mg BID PO 09/13/17 22:00 09/14/17 08:30 Brimonidine Tartrate (Alphagan) 1 drop BID OU 09/13/17 22:00 09/14/17 08:30 Citalopram Hydrobromide (CeleXA) 20 mg DAILY PO 09/14/17 09:00 09/14/17 10:35 Cyanocobalamin (Vitamin B-12) 2,500 mcg DAILY PO 09/14/17 09:00 09/14/17 10:35 Furosemide (Lasix) 80 mg BID92 PO 09/14/17 09:00 09/14/17 14:45 Levothyroxine Sodium (Synthroid) 112 mcg DAILY07 PO 09/14/17 09:00 09/14/17 10:34 Diltiazem HCl (Cardizem 24hr Cd) 180 mg BID PO 09/14/17 10:00 09/14/17 10:34 Pantoprazole Sodium (Protonix) 40 mg DAILYAC PO 09/14/17 09:00 09/14/17 10:34 Spironolactone (Aldactone) 25 mg DAILY PO 09/14/17 10:00 09/14/17 10:34 Imaging: Imaging: CXR IMPRESSION: Worsening congestive heart fire with mild right basilar infiltrate and possible pleural fluid. PE: GEN: mild distress HEENT: Atraumatic, keeps eyes closed - shows me a pill that she has been holding on her tongue (RN says Lasix given ~2 hours ago) LUNGS: breathing mask on 6L, diminished HEART: RRR ABD: soft, vaguely tender diffusely, BS+ EXTREMITY: No edema SKIN: No rashes, no jaundice NEURO/PSYCH: responds - currently not the best historian A/P: A/P: Acute/chronic resp failure/CHF Dysphagia - chronic, past dilations - recent EGD/food disimpaction (per HPI) GERD - on PPI H/o AVR, Warfarin coagulopathy CRC screen - none S/p cholecystectomy -- Await improvement in resp status and speech eval. Consider changing to IV medications. MICHELLE SAEZ Sep 14, 2017 15:49
[2017-09-14 19:00] VITALS: BP 121/58
[2017-09-14] MEDS: ATORVASTATIN CALCIUM 10 MG TABLET. PO SCH (20:39)
[2017-09-14] MEDS: LATANOPROST 0.005% OPHTH SOLUTION 2.5ML BOTTLE. OU SCH (20:40)
[2017-09-14] MEDS ORDERED: NON FORMULARY ITEM (Melatonin 10 MG) PO SCH (21:00)
[2017-09-14 22:47] VITALS: BP 95/48
[2017-09-15 03:00] VITALS: BP 95/63
[2017-09-15] MEDS: LEVOTHYROXINE 112 MCG TABLET PO SCH (05:30)
[2017-09-15 05:33] LABS: CALCIUM 10.3 mg/dL (8.5-10.1); CREATININE 1.4 mg/dL (0.6-1.0); GFR 36.2; POTASSIUM 4.3 mmol/L (3.5-5.1)
[2017-09-15 07:00] VITALS: BP_SYST 106; BP_SYST 115; BP_DIAS 61; BP_DIAS 62
[2017-09-15] MEDS: IPRATRPIUM/ALBUTEROL 0.5/2.5MG 3 ML NEBU. NEB SCH ×4 (07:54→20:00)
[2017-09-15] MEDS: BUDESONIDE 0.5 MG/2 ML NEBU. NEB SCH ×2 (07:54→20:00)
[2017-09-15] MEDS: PANTOPRAZOLE 40 MG TABLET.DR. PO SCH (08:10)
[2017-09-15] MEDS: CYANOCOBALAMIN (VITAMIN B-12) 1,000 MCG TABLET. PO SCH (08:11)
[2017-09-15] MEDS: FUROSEMIDE 80 MG TABLET. PO SCH ×2 (08:12→13:23)
[2017-09-15] MEDS: LACTOBACILLUS RHAMNOSUS GG 1 CAPSULE. PO SCH ×2 (08:12→20:32)
[2017-09-15] MEDS: POTASSIUM CHLORIDE 10 MEQ TABLET.ER. PO SCH ×2 (08:12→20:32)
[2017-09-15] MEDS: SPIRONOLACTONE 25 MG TABLET PO SCH (08:12)
[2017-09-15] MEDS: METOPROLOL TART IMMED RELEASE 25 MG TABLET. PO SCH ×2 (08:13→20:33)
[2017-09-15] MEDS: OXYBUTYNIN CHLORIDE 5 MG TABLET PO SCH ×2 (08:13→20:32)
[2017-09-15] MEDS: CITALOPRAM 20 MG TABLET. PO SCH (08:13)
[2017-09-15] MEDS: SIMETHICONE 80 MG TAB.CHEW PO SCH ×2 (08:13→20:32)
[2017-09-15] MEDS: DORZOLAMIDE 2% OPHTH SOLUTION 10ML BOTTLE. OU SCH ×2 (08:14→20:33)
[2017-09-15] MEDS: BRIMONIDINE 0.2% OPHTH SOLUTION 5ML BOTTLE. OU SCH ×2 (08:14→20:33)
[2017-09-15] MEDS: NYSTATIN TOPICAL POWDER 15GM BOTTLE. TP SCH ×2 (08:14→20:33)
[2017-09-15] MEDS: LATANOPROST 0.005% OPHTH SOLUTION 2.5ML BOTTLE. OU SCH ×2 (08:15→20:33)
[2017-09-15] MEDS: POLYVINYL ALCOHOL 1.4% OPHTH SOLUTION 15ML BOTTLE. OD SCH ×4 (08:15→20:33)
[2017-09-15] MEDS: cycloSPORINE 0.05% OPTH 1 DROP DROPERETTE OU SCH ×2 (08:42→20:33)
--- NOTE | 2017-09-15 09:01 | PDOC ---
PROGRESS NOTES Subjective Subjective Patient resting comfortably on Bipap. Denies pain. Objective Objective Vital Signs Date Time Temp Pulse Resp B/P (MAP) Pulse Ox O2 Delivery O2 Flow Rate FiO2 09/15/17 08:13 67 115/61 09/15/17 07:54 100 BiPAP/CPAP 09/15/17 07:00 18 09/15/17 03:00 97.5 97.5 09/14/17 15:00 6.0 Intake and Output 09/15/17 07:00 Intake Total 100 ml Balance 100 ml Intake Oral 100 ml # Voids 2 # Bowel Movements 2 Physical Exam Abdomen: Normal bowel sounds, Soft, No tenderness Heart: Other (irregularly irregular) Extremities: No edema General: Alert, No acute distress Lungs: Other (BS decreased throughout otherwise CTA anteriorly) Plan Plan of Care 1. Acute on chronic respiratory failure with COPD - hypoxic on venti-mask yesterday, improved with Bipap. Continue tx per Pulmonary. 2. acute on chronic diastolic CHF - one extra dose of Lasix yesterday, otherwise on her usual dose of 80mg po BID. No I's and O's as patient incontinent of urine. Rivera ordered. Continue tx per Cardiology. 3. chronic afib with coagulopathy - rate good with her usual meds. INR at 5.9 today. Continue to hold Coumadin and follow lab. 4. dysphagia - bedside swallow ordered, may not be able to do while she needs Bipap. Continue mechanical soft diet with aspiration precautions. 5. CKD III - stable on lab. 6. HTN - controlled, continue present meds. 7. debility - resume therapies when condition allows. Comment Review of Relevant I have reviewed the following items muna (where applicable) has been applied. Labs Laboratory Tests Test 09/13/17 13:10 09/13/17 18:40 09/13/17 19:19 09/13/17 22:30 White Blood Count 3.5 x10^3/uL (4.0-11.0) Red Blood Count 4.31 x10^6/uL (3.50-5.40) Hemoglobin 12.0 g/dL (12.0-15.5) Hematocrit 36.8 % (36.0-47.0) Mean Corpuscular Volume 85 fL (79-100) Mean Corpuscular Hemoglobin 28 pg (25-35) Mean Corpuscular Hemoglobin Concent 33 g/dL (31-37) Red Cell Distribution Width 19.8 % (11.5-14.5) Platelet Count 117 x10^3/uL (140-400) Neutrophils (%) (Auto) 76 % (31-73) Lymphocytes (%) (Auto) 18 % (24-48) Monocytes (%) (Auto) 6 % (0-9) Eosinophils (%) (Auto) 0 % (0-3) Basophils (%) (Auto) 1 % (0-3) Neutrophils # (Auto) 2.6 x10^3uL (1.8-7.7) Lymphocytes # (Auto) 0.6 x10^3/uL (1.0-4.8) Monocytes # (Auto) 0.2 x10^3/uL (0.0-1.1) Eosinophils # (Auto) 0.0 x10^3/uL (0.0-0.7) Basophils # (Auto) 0.0 x10^3/uL (0.0-0.2) Prothrombin Time 49.4 SEC (11.7-14.0) Prothromb Time International Ratio 5.5 (0.8-1.1) Activated Partial Thromboplast Time 52 SEC (24-38) Sodium Level 139 mmol/L (136-145) Potassium Level 4.0 mmol/L (3.5-5.1) Chloride Level 102 mmol/L (98-107) Carbon Dioxide Level 28 mmol/L (21-32) Anion Gap 9 (6-14) Blood Urea Nitrogen 18 mg/dL (7-20) Creatinine 1.6 mg/dL (0.6-1.0) Estimated GFR (Cockcroft-Gault) 31.0 Glucose Level 98 mg/dL (70-99) Calcium Level 10.1 mg/dL (8.5-10.1) Troponin I Quantitative < 0.017 ng/mL (0.000-0.055) < 0.017 ng/mL (0.000-0.055) < 0.017 ng/mL (0.000-0.055) [id number] Natriuretic Peptide 4361 pg/mL (0-449) Nasal Screen MRSA (PCR) Negative (Negative) Test 09/14/17 05:15 09/14/17 13:30 09/15/17 04:39 White Blood Count 3.5 x10^3/uL (4.0-11.0) Red Blood Count 4.09 x10^6/uL (3.50-5.40) Hemoglobin 11.3 g/dL (12.0-15.5) Hematocrit 35.1 % (36.0-47.0) Mean Corpuscular Volume 86 fL (79-100) Mean Corpuscular Hemoglobin 28 pg (25-35) Mean Corpuscular Hemoglobin Concent 32 g/dL (31-37) Red Cell Distribution Width 19.2 % (11.5-14.5) Platelet Count 100 x10^3/uL (140-400) Neutrophils (%) (Auto) 78 % (31-73) Lymphocytes (%) (Auto) 14 % (24-48) Monocytes (%) (Auto) 7 % (0-9) Eosinophils (%) (Auto) 0 % (0-3) Basophils (%) (Auto) 1 % (0-3) Neutrophils # (Auto) 2.8 x10^3uL (1.8-7.7) Lymphocytes # (Auto) 0.5 x10^3/uL (1.0-4.8) Monocytes # (Auto) 0.2 x10^3/uL (0.0-1.1) Eosinophils # (Auto) 0.0 x10^3/uL (0.0-0.7) Basophils # (Auto) 0.0 x10^3/uL (0.0-0.2) Sodium Level 140 mmol/L (136-145) 138 mmol/L (136-145) Potassium Level 4.2 mmol/L (3.5-5.1) 4.3 mmol/L (3.5-5.1) Chloride Level 105 mmol/L (98-107) 106 mmol/L (98-107) Carbon Dioxide Level 28 mmol/L (21-32) 25 mmol/L (21-32) Anion Gap 7 (6-14) 7 (6-14) Blood Urea Nitrogen 17 mg/dL (7-20) 19 mg/dL (7-20) Creatinine 1.6 mg/dL (0.6-1.0) 1.4 mg/dL (0.6-1.0) Estimated GFR (Cockcroft-Gault) 31.0 36.2 Glucose Level 93 mg/dL (70-99) 83 mg/dL (70-99) Calcium Level 10.2 mg/dL (8.5-10.1) 10.3 mg/dL (8.5-10.1) O2 Saturation 85 % (92-99) Arterial Blood pH 7.43 (7.35-7.45) Arterial Blood pCO2 at Patient Temp 38 mmHg (35-46) Arterial Blood pO2 at Patient Temp 51 mmHg (65-108) Arterial Blood HCO3 24 mmol/L (21-28) Arterial Blood Base Excess 0 mmol/L (-3-3) FiO2 44 Prothrombin Time 52.0 SEC (11.7-14.0) Prothromb Time International Ratio 5.9 (0.8-1.1) Laboratory Tests Test 09/14/17 13:30 09/15/17 04:39 O2 Saturation 85 % (92-99) Arterial Blood pH 7.43 (7.35-7.45) Arterial Blood pCO2 at Patient Temp 38 mmHg (35-46) Arterial Blood pO2 at Patient Temp 51 mmHg (65-108) Arterial Blood HCO3 24 mmol/L (21-28) Arterial Blood Base Excess 0 mmol/L (-3-3) FiO2 44 Prothrombin Time 52.0 SEC (11.7-14.0) Prothromb Time International Ratio 5.9 (0.8-1.1) Sodium Level 138 mmol/L (136-145) Potassium Level 4.3 mmol/L (3.5-5.1) Chloride Level 106 mmol/L (98-107) Carbon Dioxide Level 25 mmol/L (21-32) Anion Gap 7 (6-14) Blood Urea Nitrogen 19 mg/dL (7-20) Creatinine 1.4 mg/dL (0.6-1.0) Estimated GFR (Cockcroft-Gault) 36.2 Glucose Level 83 mg/dL (70-99) Calcium Level 10.3 mg/dL (8.5-10.1) Medications Current Medications Furosemide (Lasix) 40 mg 1X ONCE IVP Last administered on 09/13/17at 17:21; Start 09/13/17 at 17:00; Stop 09/13/17 at 17:01; Status DC Ondansetron HCl (Zofran) 4 mg PRN Q8HRS PRN IV NAUSEA/VOMITING; Start 09/13/17 at 16:30; Stop 09/14/17 at 16:29; Status DC Acetaminophen (Tylenol) 650 mg PRN Q4HRS PRN PO FEVER; Start 09/13/17 at 16:30; Stop 09/13/17 at 23:31; Status DC Albuterol/ Ipratropium (Duoneb) 3 ml RTQID NEB Last administered on 09/15/17 07 :54; Start 09/13/17 at 20:00 Cyclosporine (Restasis) 1 drop BID OU Last administered on 09/15/17 08:42; Start 09/13/17 at 22:00 Diphenhydramine HCl (Benadryl) 25 mg PRN QHS PRN PO INSOMNIA 1ST CHOICE; Start 09/13/17 at 21:45 Lactobacillus Rhamnosus (Culturelle) 1 cap BID PO Last administered on 08:12; Start 09/13/17 at 22:00 Metoprolol Tartrate (Lopressor) 25 mg BID PO Last administered on 09/15/17 08: 13; Start 09/13/17 at 22:00 Nystatin (Nystop) 1 jessenia BID TP Last administered on 09/15/17 08:14; Start at 22:00 Potassium Chloride (Klor-Con) 10 meq BID PO Last administered on 09/15/17 08:12 ; Start 09/13/17 at 22:00 Dorzolamide HCl (Trusopt) 1 drop BID OU Last administered on 09/15/17 08:14; Start 09/13/17 at 22:00 Budesonide (Pulmicort) 0.5 mg RTBID NEB Last administered on 09/15/17 07:54; Start 09/13/17 at 22:00 Artificial Tears (Artificial Tears) 1 drop PRN Q2HR PRN OU DRY EYE; Start at 22:00 Latanoprost (Xalatan) 1 drop QHS OU Last administered on 09/14/17at 20:40; Start 09/13/17 at 22:00 Oxybutynin Chloride (Ditropan) 5 mg BID PO Last administered on 09/15/17 08:13 ; Start 09/13/17 at 22:00 Artificial Tears (Artificial Tears) 1 drop QID OD Last administered on 08:15; Start 09/14/17 at 09:00 Simethicone (Gas-X) 80 mg BID PO Last administered on 09/15/17 08:13; Start 09/13/17 at 22:00 Brimonidine Tartrate (Alphagan) 1 drop BID OU Last administered on 09/15/17 08: 14; Start 09/13/17 at 22:00 Acetaminophen (Tylenol) 650 mg PRN Q6HRS PRN PO MILD PAIN / TEMP; Start at 23:30 Citalopram Hydrobromide (CeleXA) 20 mg DAILY PO Last administered on 09/15/17 08:13; Start 09/14/17 at 09:00 Cyanocobalamin (Vitamin B-12) 2,500 mcg DAILY PO Last administered on 09/15/17 08:11; Start 09/14/17 at 09:00 Furosemide (Lasix) 80 mg BID92 PO Last administered on 09/15/17 08:12; Start at 09:00 Levothyroxine Sodium (Synthroid) 112 mcg DAILY07 PO Last administered on 05:30; Start 09/14/17 at 09:00 Diltiazem HCl (Cardizem 24hr Cd) 180 mg BID PO Last administered on 09/15/17 08 :12; Start 09/14/17 at 10:00 Non-Formulary Medication (Ipratropium/ Albuterol Sulfate (Combivent Respimat Inhal)) 2 inh QID IH ; Start 09/14/17 at 09:00; Stop 09/14/17 at 09:10; Status DC Non-Formulary Medication (Melatonin ) 10 mg HS PO ; Start 09/14/17 at 21:00; Stop 09/14/17 at 21:00; Status DC Pantoprazole Sodium (Protonix) 40 mg DAILYAC PO Last administered on 09/15/17 08:10; Start 09/14/17 at 09:00 Atorvastatin Calcium (Lipitor) 5 mg QHS PO Last administered on 09/14/17at 20:39 ; Start 09/14/17 at 21:00 Spironolactone (Aldactone) 25 mg DAILY PO Last administered on 09/15/17at 08:12; Start 09/14/17 at 10:00 Albuterol/ Ipratropium (Duoneb) 3 ml RTQID NEB ; Start 09/14/17 at 12:00; Stop at 12:00; Status DC Furosemide (Lasix) 60 mg 1X ONCE IVP Last administered on 09/14/17at 15:34; Start 09/14/17 at 15:45; Stop 09/14/17 at 15:46; Status DC Active Scripts Active Culturelle (Lactobacillus Rhamnosus Gg) 1 Each Cap.sprink 1 Cap PO BID 14 Days Furosemide 80 Mg Tablet 1 Tab PO BID Pravastatin Sodium 20 Mg Tablet 1 Tab PO DAILY Nystop (Nystatin) 1 Jessenia Jessenia 1 Jessenia TP BID Reported Benadryl (Diphenhydramine Hcl) 25 Mg Capsule 1 Cap PO QHS Systane 0.3-0.4% Eye Drops (Propylene Glycol/Peg 400) 15 Ml Drops 1 Drop RIGHTEYE QID Citalopram Hbr (Citalopram Hydrobromide) 20 Mg Tablet 1 Tab PO DAILY Tylenol (Acetaminophen) 325 Mg Tablet 650 Mg PO [id number] Combivent Respimat Inhal (Ipratropium/Albuterol Sulfate) 4 Gm Aer.w.adap 2 Inh IH QID Systane Gel (Hypromellose) 10 Gm Gel..gram. 10 Gm OP Latanoprost 2.5 Ml Drops 1 Drop EACHEYE QHS Simethicone 180 Mg Capsule 125 Mg PO BID Melatonin 3 Mg Tablet 10 Mg PO HS Vitamin B-12 (Cyanocobalamin (Vitamin B-12)) 1,000 Mcg Tablet 2,500 Mcg PO DAILY Warfarin Sodium 2 Mg Tablet 2.5 Mg PO DAILY Warfarin Sodium 5 Mg Tablet 1 Tab PO DAILY Diltiazem 24HR Cd (Diltiazem Hcl) 180 Mg Cap.er.24h 1 Cap PO BID Levothyroxine Sodium 112 Mcg Tablet 1 Tab PO DAILY Spironolactone 25 Mg Tablet 1 Tab PO DAILY Advair 250-50 Diskus (Fluticasone/Salmeterol) 1 Each Disk.w.dev 1 Puff IH BID Benadryl (Diphenhydramine Hcl) 25 Mg Capsule 25 Mg PO PRN PRN Potassium Chloride 10 Meq Tablet.er 1 Tab PO BID Oxybutynin Chloride Er (Oxybutynin Chloride) 5 Mg Tab.er.24 1 Tab PO BID Simbrinza 1%-0.2% Eye Drops (Brinzolamide/Brimonid Tart) 8 Ml Drops.susp 8 Ml EACHEYE BID Advanced Eye Relief Dry Eye Dp (Glycerin/Propylene Glycol) 30 Ml Drops 1 Drop OP PRN Q2HRS PRN Restasis (Cyclosporine) 1 Each Droperette 1 Drop EACHEYE BID Omeprazole 20 Mg Capsule. 1 Cap PO DAILY Metoprolol Tartrate 25 Mg Tablet 1 Tab PO BID Vitals/I & O Vital Sign - Last 24 Hours 09/14/17 09/14/17 09/14/17 09/14/17 10:34 11:00 11:27 13:45 Temp 98.6 98.6 Pulse 71 66 Resp 20 B/P (MAP) 128/70 120/67 (84) Pulse Ox 84 88 O2 Delivery Nasal Cannula Nasal Cannula Nasal Cannula O2 Flow Rate 6.0 3.0 6.0 09/14/17 09/14/17 09/14/17 09/14/17 15:00 15:59 19:00 19:16 Temp 97.7 97.5 97.7 97.5 Pulse 66 68 Resp 22 20 B/P (MAP) 124/64 (84) 121/58 (79) Pulse Ox 88 98 O2 Delivery Nasal Cannula BiPAP/CPAP BiPAP/CPAP Bi-pap O2 Flow Rate 6.0 09/14/17 09/14/17 09/14/17 09/14/17 19:25 20:39 20:39 22:47 Temp 97.7 97.7 Pulse 68 68 67 Resp 20 B/P (MAP) 121/58 121/58 95/48 (64) Pulse Ox 99 O2 Delivery BiPAP/CPAP BiPAP/CPAP 09/14/17 09/15/17 09/15/17 09/15/17 23:18 01:02 03:00 03:01 Temp 97.5 97.5 Pulse 78 Resp 20 B/P (MAP) 95/63 (74) Pulse Ox 96 O2 Delivery BiPAP/CPAP BiPAP/CPAP BiPAP/CPAP BiPAP/CPAP 809/15/17 09/15/17 09/15/17 07:00 07:54 08:12 08:13 Pulse 67 67 67 Resp 18 B/P (MAP) 115/61 (79) 115/61 115/61 Pulse Ox 97 100 O2 Delivery BiPAP/CPAP BiPAP/CPAP Intake and Output 09/14/17 09/14/17 09/15/17 15:00 23:00 07:00 Intake Total 100 ml Balance 100 ml TOÑITO PEREYRA MD Sep 15, 2017 09:01
--- NOTE | 2017-09-15 10:30 | PDOC ---
Subjective: Subjective: D/w daughter - typically does okay with liquids and meat cut into small pieces unless eats too quickly. Can't tolerate salads. Swallowing improved after recent EGD - hard to say when worsened because resp status has been problematic. Objective: Objective: Per RN - tolerated jello, pudding, and thickened water w/o coughing/choking. Vital Signs: Vital Signs Date Time Temp Pulse Resp B/P (MAP) Pulse Ox O2 Delivery O2 Flow Rate FiO2 09/15/17 08:13 67 115/61 09/15/17 07:54 100 BiPAP/CPAP 09/15/17 07:00 18 09/15/17 03:00 97.5 97.5 09/14/17 15:00 6.0 Labs: Laboratory Tests Test 09/14/17 13:30 09/15/17 04:39 O2 Saturation 85 % Arterial Blood pH 7.43 Arterial Blood pCO2 at Patient Temp 38 mmHg Arterial Blood pO2 at Patient Temp 51 mmHg Arterial Blood HCO3 24 mmol/L Arterial Blood Base Excess 0 mmol/L FiO2 44 Prothrombin Time 52.0 SEC Prothromb Time International Ratio 5.9 Sodium Level 138 mmol/L Potassium Level 4.3 mmol/L Chloride Level 106 mmol/L Carbon Dioxide Level 25 mmol/L Anion Gap 7 Blood Urea Nitrogen 19 mg/dL Creatinine 1.4 mg/dL Estimated GFR (Cockcroft-Gault) 36.2 Glucose Level 83 mg/dL Calcium Level 10.3 mg/dL PE: GEN: NAD LUNGS: BiPAP HEART: RRR ABD: soft, non-tender NEURO/PSYCH: keeps eyes closed A/P: Acute/chronic resp failure/CHF - now on BiPAP Dysphagia - EGD last month for food bolus, h/o GERD on PPI Warfarin coagulopathy (INR 5.9) -- Continue per pulm, plans for MANAGEMENT CONSULTANT to see again. MICHELLE SAEZ Sep 15, 2017 10:30
[2017-09-15 11:00] VITALS: BP 115/63
--- NOTE | 2017-09-15 12:20 | PDOC ---
PULMONARY PROGRESS NOTES Subjective pt anxious on BIPAP Vitals Vital Signs Date Time Temp Pulse Resp B/P (MAP) Pulse Ox O2 Delivery O2 Flow Rate FiO2 09/15/17 11:00 65 18 115/63 (80) 89 BiPAP/CPAP 09/15/17 03:00 97.5 97.5 09/14/17 15:00 6.0 General: Alert Lungs: Other (few rhonchi) Cardiovascular: S1 Abdomen: Soft, Non-tender Neuro Exam: Alert Extremities: No Edema Skin: Warm Labs Laboratory Tests Test 09/13/17 13:10 09/13/17 18:40 09/13/17 19:19 09/13/17 22:30 White Blood Count 3.5 x10^3/uL (4.0-11.0) Red Blood Count 4.31 x10^6/uL (3.50-5.40) Hemoglobin 12.0 g/dL (12.0-15.5) Hematocrit 36.8 % (36.0-47.0) Mean Corpuscular Volume 85 fL (79-100) Mean Corpuscular Hemoglobin 28 pg (25-35) Mean Corpuscular Hemoglobin Concent 33 g/dL (31-37) Red Cell Distribution Width 19.8 % (11.5-14.5) Platelet Count 117 x10^3/uL (140-400) Neutrophils (%) (Auto) 76 % (31-73) Lymphocytes (%) (Auto) 18 % (24-48) Monocytes (%) (Auto) 6 % (0-9) Eosinophils (%) (Auto) 0 % (0-3) Basophils (%) (Auto) 1 % (0-3) Neutrophils # (Auto) 2.6 x10^3uL (1.8-7.7) Lymphocytes # (Auto) 0.6 x10^3/uL (1.0-4.8) Monocytes # (Auto) 0.2 x10^3/uL (0.0-1.1) Eosinophils # (Auto) 0.0 x10^3/uL (0.0-0.7) Basophils # (Auto) 0.0 x10^3/uL (0.0-0.2) Prothrombin Time 49.4 SEC (11.7-14.0) Prothromb Time International Ratio 5.5 (0.8-1.1) Activated Partial Thromboplast Time 52 SEC (24-38) Sodium Level 139 mmol/L (136-145) Potassium Level 4.0 mmol/L (3.5-5.1) Chloride Level 102 mmol/L (98-107) Carbon Dioxide Level 28 mmol/L (21-32) Anion Gap 9 (6-14) Blood Urea Nitrogen 18 mg/dL (7-20) Creatinine 1.6 mg/dL (0.6-1.0) Estimated GFR (Cockcroft-Gault) 31.0 Glucose Level 98 mg/dL (70-99) Calcium Level 10.1 mg/dL (8.5-10.1) Troponin I Quantitative < 0.017 ng/mL (0.000-0.055) < 0.017 ng/mL (0.000-0.055) < 0.017 ng/mL (0.000-0.055) [id number] Natriuretic Peptide 4361 pg/mL (0-449) Nasal Screen MRSA (PCR) Negative (Negative) Test 09/14/17 05:15 09/14/17 13:30 09/15/17 04:39 White Blood Count 3.5 x10^3/uL (4.0-11.0) Red Blood Count 4.09 x10^6/uL (3.50-5.40) Hemoglobin 11.3 g/dL (12.0-15.5) Hematocrit 35.1 % (36.0-47.0) Mean Corpuscular Volume 86 fL (79-100) Mean Corpuscular Hemoglobin 28 pg (25-35) Mean Corpuscular Hemoglobin Concent 32 g/dL (31-37) Red Cell Distribution Width 19.2 % (11.5-14.5) Platelet Count 100 x10^3/uL (140-400) Neutrophils (%) (Auto) 78 % (31-73) Lymphocytes (%) (Auto) 14 % (24-48) Monocytes (%) (Auto) 7 % (0-9) Eosinophils (%) (Auto) 0 % (0-3) Basophils (%) (Auto) 1 % (0-3) Neutrophils # (Auto) 2.8 x10^3uL (1.8-7.7) Lymphocytes # (Auto) 0.5 x10^3/uL (1.0-4.8) Monocytes # (Auto) 0.2 x10^3/uL (0.0-1.1) Eosinophils # (Auto) 0.0 x10^3/uL (0.0-0.7) Basophils # (Auto) 0.0 x10^3/uL (0.0-0.2) Sodium Level 140 mmol/L (136-145) 138 mmol/L (136-145) Potassium Level 4.2 mmol/L (3.5-5.1) 4.3 mmol/L (3.5-5.1) Chloride Level 105 mmol/L (98-107) 106 mmol/L (98-107) Carbon Dioxide Level 28 mmol/L (21-32) 25 mmol/L (21-32) Anion Gap 7 (6-14) 7 (6-14) Blood Urea Nitrogen 17 mg/dL (7-20) 19 mg/dL (7-20) Creatinine 1.6 mg/dL (0.6-1.0) 1.4 mg/dL (0.6-1.0) Estimated GFR (Cockcroft-Gault) 31.0 36.2 Glucose Level 93 mg/dL (70-99) 83 mg/dL (70-99) Calcium Level 10.2 mg/dL (8.5-10.1) 10.3 mg/dL (8.5-10.1) O2 Saturation 85 % (92-99) Arterial Blood pH 7.43 (7.35-7.45) Arterial Blood pCO2 at Patient Temp 38 mmHg (35-46) Arterial Blood pO2 at Patient Temp 51 mmHg (65-108) Arterial Blood HCO3 24 mmol/L (21-28) Arterial Blood Base Excess 0 mmol/L (-3-3) FiO2 44 Prothrombin Time 52.0 SEC (11.7-14.0) Prothromb Time International Ratio 5.9 (0.8-1.1) Laboratory Tests Test 09/14/17 13:30 09/15/17 04:39 O2 Saturation 85 % (92-99) Arterial Blood pH 7.43 (7.35-7.45) Arterial Blood pCO2 at Patient Temp 38 mmHg (35-46) Arterial Blood pO2 at Patient Temp 51 mmHg (65-108) Arterial Blood HCO3 24 mmol/L (21-28) Arterial Blood Base Excess 0 mmol/L (-3-3) FiO2 44 Prothrombin Time 52.0 SEC (11.7-14.0) Prothromb Time International Ratio 5.9 (0.8-1.1) Sodium Level 138 mmol/L (136-145) Potassium Level 4.3 mmol/L (3.5-5.1) Chloride Level 106 mmol/L (98-107) Carbon Dioxide Level 25 mmol/L (21-32) Anion Gap 7 (6-14) Blood Urea Nitrogen 19 mg/dL (7-20) Creatinine 1.4 mg/dL (0.6-1.0) Estimated GFR (Cockcroft-Gault) 36.2 Glucose Level 83 mg/dL (70-99) Calcium Level 10.3 mg/dL (8.5-10.1) Medications Active Scripts Medications Dose Route/Sig Max Daily Dose Days Date Category Benadryl (Diphenhydramine Hcl) 25 Mg Capsule 1 Cap PO QHS 09/13/17 Reported Systane 0.3-0.4% Eye Drops (Propylene Glycol/Peg 400) 15 Ml Drops 1 Drop RIGHTEYE QID 09/13/17 Reported Citalopram Hbr (Citalopram Hydrobromide) 20 Mg Tablet 1 Tab PO DAILY 09/13/17 Reported Tylenol (Acetaminophen) 325 Mg Tablet 650 Mg PO [id number] 09/13/17 Reported Culturelle (Lactobacillus Rhamnosus Gg) 1 Each Cap.sprink 1 Cap PO BID 14 08/24/17 Rx Combivent Respimat Inhal (Ipratropium/Albuterol Sulfate) 4 Gm Aer.w.adap 2 Inh IH QID 08/15/17 Reported Systane Gel (Hypromellose) 10 Gm Gel..gram. 10 Gm OP 08/15/17 Reported Latanoprost 2.5 Ml Drops 1 Drop EACHEYE QHS 08/15/17 Reported Furosemide 80 Mg Tablet 1 Tab PO BID 08/15/17 Rx Pravastatin Sodium 20 Mg Tablet 1 Tab PO DAILY 05/12/17 Rx Simethicone 180 Mg Capsule 125 Mg PO BID 05/12/17 Reported Melatonin 3 Mg Tablet 10 Mg PO HS 05/12/17 Reported Vitamin B-12 (Cyanocobalamin (Vitamin B-12)) 1,000 Mcg Tablet 2,500 Mcg PO DAILY 05/12/17 Reported Warfarin Sodium 2 Mg Tablet 2.5 Mg PO DAILY 05/12/17 Reported Warfarin Sodium 5 Mg Tablet 1 Tab PO DAILY 05/12/17 Reported Diltiazem 24HR Cd (Diltiazem Hcl) 180 Mg Cap.er.24h 1 Cap PO BID 05/12/17 Reported Levothyroxine Sodium 112 Mcg Tablet 1 Tab PO DAILY 05/12/17 Reported Spironolactone 25 Mg Tablet 1 Tab PO DAILY 02/07/16 Reported Advair 250-50 Diskus (Fluticasone/Salmeterol) 1 Each Disk.w.dev 1 Puff IH BID 02/07/16 Reported Nystop (Nystatin) 1 Jessenia Jessenia 1 Jessenia TP BID 12/19/14 Rx Benadryl (Diphenhydramine Hcl) 25 Mg Capsule 25 Mg PO PRN PRN 12/15/14 Reported Potassium Chloride 10 Meq Tablet.er 1 Tab PO BID 12/15/14 Reported Oxybutynin Chloride Er (Oxybutynin Chloride) 5 Mg Tab.er.24 1 Tab PO BID 12/15/14 Reported Simbrinza 1%-0.2% Eye Drops (Brinzolamide/Brimonid Tart) 8 Ml Drops.susp 8 Ml EACHEYE BID 12/15/14 Reported Advanced Eye Relief Dry Eye Dp (Glycerin/Propylene Glycol) 30 Ml Drops 1 Drop OP PRN Q2HRS PRN 12/15/14 Reported Restasis (Cyclosporine) 1 Each Droperette 1 Drop EACHEYE BID 12/15/14 Reported Omeprazole 20 Mg Capsule.dr 1 Cap PO DAILY 12/15/14 Reported Metoprolol Tartrate 25 Mg Tablet 1 Tab PO BID 12/15/14 Reported Impression . 1. Naotr-za-tmbcvtf hypoxic respiratory failure secondary to zdarq-oz-jhzphle diastolic heart failure. 2. Qjfqd-cd-gtyxzfd diastolic heart failure. 3. Underlying chronic obstructive pulmonary disease with oxygen dependence. 4. Abnormal chest x-ray with worsening interstitial edema and a small left pleural effusion. 5. Leukopenia. 6. Chronic kidney disease stage 3. 7. Coagulopathy. Plan . 1. aggressive diuresis. 2. try off BiPAP. 3. Continue bronchodilators. 4. Follow chest x-ray post-diuresis today 5. Continue DuoNebs. 6. Follow Cardiology's recommendations. 7. Monitor white cell count and INR 8. Discussed with RN. THADDEUS LYNCH MD Sep 15, 2017 12:20
[2017-09-15] MEDS ORDERED: HALOPERIDOL 2 MG TABLET. PO PRN (12:30)
[2017-09-15] MEDS: HALOPERIDOL LACTATE 5 MG/ML VIAL. IVP PRN ×2 (13:22→17:33)
--- NOTE | 2017-09-15 13:57 | PDOC ---
CARDIO Progress Notes Date and Time Date of Service 09/15/2017 Time of Evaluation ~1030 Subjective Subjective: Other (dyspnea; with bi-pap on) Comments: anxious Vitals Vitals Vital Signs Date Time Temp Pulse Resp B/P (MAP) Pulse Ox O2 Delivery O2 Flow Rate FiO2 09/15/17 12:35 93 Venturi Mask 15.0 09/15/17 11:00 65 18 115/63 (80) 09/15/17 03:00 97.5 97.5 Weight Weight [ ] Input and Output Intake and Output Intake and Output 09/15/17 07:00 Intake Total 100 ml Balance 100 ml Intake Oral 100 ml # Voids 2 # Bowel Movements 2 Laboratory Labs Laboratory Tests Test 09/15/17 04:39 Prothrombin Time 52.0 SEC (11.7-14.0) Prothromb Time International Ratio 5.9 (0.8-1.1) Sodium Level 138 mmol/L (136-145) Potassium Level 4.3 mmol/L (3.5-5.1) Chloride Level 106 mmol/L (98-107) Carbon Dioxide Level 25 mmol/L (21-32) Anion Gap 7 (6-14) Blood Urea Nitrogen 19 mg/dL (7-20) Creatinine 1.4 mg/dL (0.6-1.0) Estimated GFR (Cockcroft-Gault) 36.2 Glucose Level 83 mg/dL (70-99) Calcium Level 10.3 mg/dL (8.5-10.1) Physical Exam HEENT: Neck Supple W Full Motion Chest: Symmetric LUNGS: Other (coarse) Heart: RRR Abdomen: Soft N/T Neurology: alert, oriented, follow commands Assessment Assessment 1. acute on chronic respiratory failure --now on bi-pap --defer to PULM 2. acute on chronic diastolic HF --BP controlled now --home diuretics resumed --consider converting to IV diuretics tomorrow if continues to require bi-pap 3. chronic atrial fib --rate controlled with BB and CCB --INR supratherapeutic -- on hold, defer to PCP 4. 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 PPM in situ --brand unknown --will request records from [facility] TONI ODONNELL APRN Sep 15, 2017 13:57
[2017-09-15 15:00] VITALS: BP 121/76
--- NOTE | 2017-09-15 16:34 | RAD ---
Chest radiograph 09/15/2017 4:15 PM INDICATION: CHF COMPARISON: September 13, 2017 TECHNIQUE: Portable upright frontal view of the chest is provided. FINDINGS: The cardiomediastinal silhouette is enlarged, stable. Chest wall cardiac device is in similar position. Median sternotomy changes are present. There is similar mild interstitial prominence. Interval resolution of small right pleural effusion. No pneumothorax. IMPRESSION: Improved aeration of the right lung base with resolution of small right pleural effusion. There is persistent mild pulmonary vascular congestion. Electronically signed by: Radha Arora MD (09/15/2017 4:31 PM) [id number]
[2017-09-15 19:00] VITALS: BP 132/68
[2017-09-15] MEDS: ATORVASTATIN CALCIUM 10 MG TABLET. PO SCH (20:32)
[2017-09-15 23:00] VITALS: BP 120/57
[2017-09-16] MEDS: HALOPERIDOL LACTATE 5 MG/ML VIAL. IVP PRN (02:32)
[2017-09-16 03:00] VITALS: BP 115/56
[2017-09-16 04:36] LABS: HEMATOCRIT 35.3 % (36.0-47.0); HEMOGLOBIN 11.6 g/dL (12.0-15.5); RED BLOOD COUNT 4.14 x10^6/uL (3.50-5.40); RED CELL DISTRIBUTION WIDTH 18.9 % (11.5-14.5); WHITE BLOOD COUNT 3.9 x10^3/uL (4.0-11.0)
[2017-09-16 05:05] LABS: ALBUMIN 2.6 g/dL (3.4-5.0); ALBUMIN/GLOBULIN RATIO 0.8 (1.0-1.7); CALCIUM 10.6 mg/dL (8.5-10.1); CREATININE 1.4 mg/dL (0.6-1.0); GFR 36.2; POTASSIUM 4.1 mmol/L (3.5-5.1); TOTAL BILIRUBIN 1.3 mg/dL (0.2-1.0); TOTAL PROTEIN 5.7 g/dL (6.4-8.2)
[2017-09-16] MEDS: PANTOPRAZOLE 40 MG TABLET.DR. PO SCH (05:58)
[2017-09-16] MEDS: LEVOTHYROXINE 112 MCG TABLET PO SCH (05:58)
[2017-09-16 07:00] VITALS: BP 106/62
[2017-09-16] MEDS: IPRATRPIUM/ALBUTEROL 0.5/2.5MG 3 ML NEBU. NEB SCH ×4 (07:10→20:30)
[2017-09-16] MEDS: BUDESONIDE 0.5 MG/2 ML NEBU. NEB SCH ×2 (07:10→20:30)
--- NOTE | 2017-09-16 08:51 | PDOC ---
PROGRESS NOTES Subjective Subjective Patient mildly anxious on Bipap this morning. Objective Objective Vital Signs Date Time Temp Pulse Resp B/P (MAP) Pulse Ox O2 Delivery O2 Flow Rate FiO2 09/16/17 07:10 98 BiPAP/CPAP 09/16/17 07:00 62 18 106/62 (77) 09/16/17 03:00 97.4 97.4 09/15/17 23:00 6.0 Intake and Output 09/16/17 07:00 Intake Total 1700 ml Output Total 750 ml Balance 950 ml Intake Oral 1700 ml Output Urine Total 750 ml Physical Exam Abdomen: Normal bowel sounds, Soft, No tenderness Heart: Other (irregularly irregular) Extremities: No edema General: Alert, No acute distress Lungs: Other (BS decreased but otherwise CTA anteriorly) Plan Plan of Care 1. Acute on chronic respiratory failure with COPD - patient had significant desaturation off Bipap yesterday so it was resumed. Will try low dose Ativan to help her with tolerating this. Continue per Pulmonary. 2. acute exacerbation of CHF - I's>O's yesterday if charting is correct (had Rivera placed yesterday AM). Has been getting her usual Lasix 80mg po BID, will try changing to 80 IV BID today. Cardiology following. 3. dysphagia - can't have swallowing evaluation until off Bipap. Chart indicates she ate 100% of two meals yesterday but nurse reports she was told patient had nothing but a little applesauce due to dyspnea. Will try to feed this AM and will need to start PPN if still unable to take diet. 4. Chronic afib with coagulopathy - INR up to 6.1 today, hasn't had Coumadin since the night prior to admission. No evidence of bleeding at this time, continue to follow lab. Rate controlled with present meds. Suspect thrombocytopenia due to the coagulopathy as patient does not have hx of this. 5. CKD III - stable on lab. 6. debility - therapies on hold due to her condition. Comment Review of Relevant I have reviewed the following items muna (where applicable) has been applied. Labs Laboratory Tests Test 09/14/17 13:30 09/15/17 04:39 09/16/17 03:55 O2 Saturation 85 % (92-99) Arterial Blood pH 7.43 (7.35-7.45) Arterial Blood pCO2 at Patient Temp 38 mmHg (35-46) Arterial Blood pO2 at Patient Temp 51 mmHg (65-108) Arterial Blood HCO3 24 mmol/L (21-28) Arterial Blood Base Excess 0 mmol/L (-3-3) FiO2 44 Prothrombin Time 52.0 SEC (11.7-14.0) 53.0 SEC (11.7-14.0) Prothromb Time International Ratio 5.9 (0.8-1.1) 6.1 (0.8-1.1) Sodium Level 138 mmol/L (136-145) 143 mmol/L (136-145) Potassium Level 4.3 mmol/L (3.5-5.1) 4.1 mmol/L (3.5-5.1) Chloride Level 106 mmol/L (98-107) 107 mmol/L (98-107) Carbon Dioxide Level 25 mmol/L (21-32) 28 mmol/L (21-32) Anion Gap 7 (6-14) 8 (6-14) Blood Urea Nitrogen 19 mg/dL (7-20) 21 mg/dL (7-20) Creatinine 1.4 mg/dL (0.6-1.0) 1.4 mg/dL (0.6-1.0) Estimated GFR (Cockcroft-Gault) 36.2 36.2 Glucose Level 83 mg/dL (70-99) 92 mg/dL (70-99) Calcium Level 10.3 mg/dL (8.5-10.1) 10.6 mg/dL (8.5-10.1) White Blood Count 3.9 x10^3/uL (4.0-11.0) Red Blood Count 4.14 x10^6/uL (3.50-5.40) Hemoglobin 11.6 g/dL (12.0-15.5) Hematocrit 35.3 % (36.0-47.0) Mean Corpuscular Volume 85 fL (79-100) Mean Corpuscular Hemoglobin 28 pg (25-35) Mean Corpuscular Hemoglobin Concent 33 g/dL (31-37) Red Cell Distribution Width 18.9 % (11.5-14.5) Platelet Count 78 x10^3/uL (140-400) BUN/Creatinine Ratio 15 (6-20) Total Bilirubin 1.3 mg/dL (0.2-1.0) Aspartate Amino Transf (AST/SGOT) 13 U/L (15-37) Alanine Aminotransferase (ALT/SGPT) 13 U/L (14-59) Alkaline Phosphatase 98 U/L (46-116) Total Protein 5.7 g/dL (6.4-8.2) Albumin 2.6 g/dL (3.4-5.0) Albumin/Globulin Ratio 0.8 (1.0-1.7) Laboratory Tests Test 09/16/17 03:55 White Blood Count 3.9 x10^3/uL (4.0-11.0) Red Blood Count 4.14 x10^6/uL (3.50-5.40) Hemoglobin 11.6 g/dL (12.0-15.5) Hematocrit 35.3 % (36.0-47.0) Mean Corpuscular Volume 85 fL (79-100) Mean Corpuscular Hemoglobin 28 pg (25-35) Mean Corpuscular Hemoglobin Concent 33 g/dL (31-37) Red Cell Distribution Width 18.9 % (11.5-14.5) Platelet Count 78 x10^3/uL (140-400) Prothrombin Time 53.0 SEC (11.7-14.0) Prothromb Time International Ratio 6.1 (0.8-1.1) Sodium Level 143 mmol/L (136-145) Potassium Level 4.1 mmol/L (3.5-5.1) Chloride Level 107 mmol/L (98-107) Carbon Dioxide Level 28 mmol/L (21-32) Anion Gap 8 (6-14) Blood Urea Nitrogen 21 mg/dL (7-20) Creatinine 1.4 mg/dL (0.6-1.0) Estimated GFR (Cockcroft-Gault) 36.2 BUN/Creatinine Ratio 15 (6-20) Glucose Level 92 mg/dL (70-99) Calcium Level 10.6 mg/dL (8.5-10.1) Total Bilirubin 1.3 mg/dL (0.2-1.0) Aspartate Amino Transf (AST/SGOT) 13 U/L (15-37) Alanine Aminotransferase (ALT/SGPT) 13 U/L (14-59) Alkaline Phosphatase 98 U/L (46-116) Total Protein 5.7 g/dL (6.4-8.2) Albumin 2.6 g/dL (3.4-5.0) Albumin/Globulin Ratio 0.8 (1.0-1.7) Medications Current Medications Furosemide (Lasix) 40 mg 1X ONCE IVP Last administered on 09/13/17 17:21; Start 09/13/17 at 17:00; Stop 09/13/17 at 17:01; Status DC Ondansetron HCl (Zofran) 4 mg PRN Q8HRS PRN IV NAUSEA/VOMITING; Start 09/13/17 at 16:30; Stop 09/14/17 at 16:29; Status DC Acetaminophen (Tylenol) 650 mg PRN Q4HRS PRN PO FEVER; Start 09/13/17 at 16:30; Stop 09/13/17 at 23:31; Status DC Albuterol/ Ipratropium (Duoneb) 3 ml RTQID NEB Last administered on 09/16/17 07 :10; Start 09/13/17 at 20:00 Cyclosporine (Restasis) 1 drop BID OU Last administered on 09/15/17 20:33; Start 09/13/17 at 22:00 Diphenhydramine HCl (Benadryl) 25 mg PRN QHS PRN PO INSOMNIA 1ST CHOICE; Start 09/13/17 at 21:45 Lactobacillus Rhamnosus (Culturelle) 1 cap BID PO Last administered on 20:32; Start 09/13/17 at 22:00 Metoprolol Tartrate (Lopressor) 25 mg BID PO Last administered on 09/15/17 20: 33; Start 09/13/17 at 22:00 Nystatin (Nystop) 1 jessenia BID TP Last administered on 09/15/17 20:33; Start at 22:00 Potassium Chloride (Klor-Con) 10 meq BID PO Last administered on 09/15/17 20:32 ; Start 09/13/17 at 22:00 Dorzolamide HCl (Trusopt) 1 drop BID OU Last administered on 09/15/17 20:33; Start 09/13/17 at 22:00 Budesonide (Pulmicort) 0.5 mg RTBID NEB Last administered on 09/16/17 07:10; Start 09/13/17 at 22:00 Artificial Tears (Artificial Tears) 1 drop PRN Q2HR PRN OU DRY EYE; Start at 22:00 Latanoprost (Xalatan) 1 drop QHS OU Last administered on 09/15/17 20:33; Start 09/13/17 at 22:00 Oxybutynin Chloride (Ditropan) 5 mg BID PO Last administered on 09/15/17 20:32 ; Start 09/13/17 at 22:00 Artificial Tears (Artificial Tears) 1 drop QID OD Last administered on 20:33; Start 09/14/17 at 09:00 Simethicone (Gas-X) 80 mg BID PO Last administered on 09/15/17 20:32; Start 09/13/17 at 22:00 Brimonidine Tartrate (Alphagan) 1 drop BID OU Last administered on 09/15/17 20: 33; Start 09/13/17 at 22:00 Acetaminophen (Tylenol) 650 mg PRN Q6HRS PRN PO MILD PAIN / TEMP; Start at 23:30 Citalopram Hydrobromide (CeleXA) 20 mg DAILY PO Last administered on 09/15/17 08:13; Start 09/14/17 at 09:00 Cyanocobalamin (Vitamin B-12) 2,500 mcg DAILY PO Last administered on 09/15/17 08:11; Start 09/14/17 at 09:00 Furosemide (Lasix) 80 mg BID92 PO Last administered on 09/15/17 13:23; Start at 09:00 Levothyroxine Sodium (Synthroid) 112 mcg DAILY07 PO Last administered on 05:58; Start 09/14/17 at 09:00 Diltiazem HCl (Cardizem 24hr Cd) 180 mg BID PO Last administered on 09/15/17 20 :32; Start 09/14/17 at 10:00 Non-Formulary Medication (Ipratropium/ Albuterol Sulfate (Combivent Respimat Inhal)) 2 inh QID IH ; Start 09/14/17 at 09:00; Stop 09/14/17 at 09:10; Status DC Non-Formulary Medication (Melatonin ) 10 mg HS PO ; Start 09/14/17 at 21:00; Stop 09/14/17 at 21:00; Status DC Pantoprazole Sodium (Protonix) 40 mg DAILYAC PO Last administered on 09/16/17at 05:58; Start 09/14/17 at 09:00 Atorvastatin Calcium (Lipitor) 5 mg QHS PO Last administered on 09/15/17at 20:32 ; Start 09/14/17 at 21:00 Spironolactone (Aldactone) 25 mg DAILY PO Last administered on 09/15/17at 08:12; Start 09/14/17 at 10:00 Albuterol/ Ipratropium (Duoneb) 3 ml RTQID NEB ; Start 09/14/17 at 12:00; Stop at 12:00; Status DC Furosemide (Lasix) 60 mg 1X ONCE IVP Last administered on 09/14/17at 15:34; Start 09/14/17 at 15:45; Stop 09/14/17 at 15:46; Status DC Haloperidol (Haldol) 2 mg PRN Q2HR PRN PO AGITATION; Start 09/15/17 at 12:30 Haloperidol Lactate (Haldol Inj) 2 mg PRN Q2HR PRN IVP AGITATION Last administered on 09/16/17at 02:32; Start 09/15/17 at 13:15 Active Scripts Active Culturelle (Lactobacillus Rhamnosus Gg) 1 Each Cap.sprink 1 Cap PO BID 14 Days Furosemide 80 Mg Tablet 1 Tab PO BID Pravastatin Sodium 20 Mg Tablet 1 Tab PO DAILY Nystop (Nystatin) 1 Jessenia Jessenia 1 Jessenia TP BID Reported Benadryl (Diphenhydramine Hcl) 25 Mg Capsule 1 Cap PO QHS Systane 0.3-0.4% Eye Drops (Propylene Glycol/Peg 400) 15 Ml Drops 1 Drop RIGHTEYE QID Citalopram Hbr (Citalopram Hydrobromide) 20 Mg Tablet 1 Tab PO DAILY Tylenol (Acetaminophen) 325 Mg Tablet 650 Mg PO [id number] Combivent Respimat Inhal (Ipratropium/Albuterol Sulfate) 4 Gm Aer.w.adap 2 Inh IH QID Systane Gel (Hypromellose) 10 Gm Gel..gram. 10 Gm OP Latanoprost 2.5 Ml Drops 1 Drop EACHEYE QHS Simethicone 180 Mg Capsule 125 Mg PO BID Melatonin 3 Mg Tablet 10 Mg PO HS Vitamin B-12 (Cyanocobalamin (Vitamin B-12)) 1,000 Mcg Tablet 2,500 Mcg PO DAILY Warfarin Sodium 2 Mg Tablet 2.5 Mg PO DAILY Warfarin Sodium 5 Mg Tablet 1 Tab PO DAILY Diltiazem 24HR Cd (Diltiazem Hcl) 180 Mg Cap.er.24h 1 Cap PO BID Levothyroxine Sodium 112 Mcg Tablet 1 Tab PO DAILY Spironolactone 25 Mg Tablet 1 Tab PO DAILY Advair 250-50 Diskus (Fluticasone/Salmeterol) 1 Each Disk.w.dev 1 Puff IH BID Benadryl (Diphenhydramine Hcl) 25 Mg Capsule 25 Mg PO PRN PRN Potassium Chloride 10 Meq Tablet.er 1 Tab PO BID Oxybutynin Chloride Er (Oxybutynin Chloride) 5 Mg Tab.er.24 1 Tab PO BID Simbrinza 1%-0.2% Eye Drops (Brinzolamide/Brimonid Tart) 8 Ml Drops.susp 8 Ml EACHEYE BID Advanced Eye Relief Dry Eye Dp (Glycerin/Propylene Glycol) 30 Ml Drops 1 Drop OP PRN Q2HRS PRN Restasis (Cyclosporine) 1 Each Droperette 1 Drop EACHEYE BID Omeprazole 20 Mg Capsule.dr 1 Cap PO DAILY Metoprolol Tartrate 25 Mg Tablet 1 Tab PO BID Vitals/I & O Vital Sign - Last 24 Hours 09/15/17 09/15/17 09/15/17 09/15/17 11:00 12:35 15:00 15:44 Pulse 65 64 Resp 18 18 B/P (MAP) 115/63 (80) 121/76 (91) Pulse Ox 89 93 90 93 O2 Delivery BiPAP/CPAP Venturi Mask BiPAP/CPAP BiPAP/CPAP O2 Flow Rate 15.0 09/15/17 09/15/17 09/15/17 09/15/17 19:00 19:30 20:26 20:32 Temp 97.6 97.6 Pulse 63 63 Resp 18 B/P (MAP) 132/68 (89) 132/68 Pulse Ox 94 93 O2 Delivery BiPAP/CPAP Bi-pap BiPAP/CPAP O2 Flow Rate 6.0 09/15/17 09/15/17 09/16/17 09/16/17 20:33 23:00 00:10 02:31 Temp 97.6 97.6 Pulse 63 63 Resp 18 B/P (MAP) 132/68 120/57 (78) Pulse Ox 89 91 90 O2 Delivery BiPAP/CPAP BiPAP/CPAP BiPAP/CPAP O2 Flow Rate 6.0 09/16/17 09/16/17 09/16/17 09/16/17 03:00 04:28 07:00 07:10 Temp 97.4 97.4 Pulse 61 62 Resp 18 18 B/P (MAP) 115/56 (75) 106/62 (77) Pulse Ox 91 94 96 98 O2 Delivery BiPAP/CPAP BiPAP/CPAP 6L/BIPAP BiPAP/CPAP Intake and Output 09/15/17 09/15/17 09/16/17 15:00 23:00 07:00 Intake Total 300 ml 1300 ml 100 ml Output Total 750 ml Balance 300 ml 1300 ml -650 ml TOÑITO PEREYRA MD Sep 16, 2017 08:51
[2017-09-16] MEDS: METOPROLOL TART IMMED RELEASE 25 MG TABLET. PO SCH ×2 (09:07→22:05)
[2017-09-16] MEDS: LACTOBACILLUS RHAMNOSUS GG 1 CAPSULE. PO SCH ×2 (09:07→22:03)
[2017-09-16] MEDS: FUROSEMIDE 100 MG/10 ML VIAL. IVP SCH ×2 (09:07→14:00)
[2017-09-16] MEDS: CYANOCOBALAMIN (VITAMIN B-12) 1,000 MCG TABLET. PO SCH (09:08)
[2017-09-16] MEDS: CITALOPRAM 20 MG TABLET. PO SCH (09:08)
[2017-09-16] MEDS: OXYBUTYNIN CHLORIDE 5 MG TABLET PO SCH ×2 (09:08→22:02)
[2017-09-16] MEDS: POTASSIUM CHLORIDE 10 MEQ TABLET.ER. PO SCH ×2 (09:08→22:01)
[2017-09-16] MEDS: SPIRONOLACTONE 25 MG TABLET PO SCH (09:09)
[2017-09-16] MEDS: POLYVINYL ALCOHOL 1.4% OPHTH SOLUTION 15ML BOTTLE. OD SCH ×4 (09:09→22:07)
[2017-09-16] MEDS: NYSTATIN TOPICAL POWDER 15GM BOTTLE. TP SCH (09:09)
[2017-09-16] MEDS: BRIMONIDINE 0.2% OPHTH SOLUTION 5ML BOTTLE. OU SCH ×2 (09:09→22:07)
[2017-09-16] MEDS: DORZOLAMIDE 2% OPHTH SOLUTION 10ML BOTTLE. OU SCH ×2 (09:09→22:08)
[2017-09-16] MEDS: SIMETHICONE 80 MG TAB.CHEW PO SCH ×2 (09:09→22:04)
[2017-09-16] MEDS: cycloSPORINE 0.05% OPTH 1 DROP DROPERETTE OU SCH ×2 (09:41→22:08)
[2017-09-16 11:00] VITALS: BP 117/65
--- NOTE | 2017-09-16 11:34 | PDOC ---
PULMONARY PROGRESS NOTES Subjective off bipap Vitals Vital Signs Date Time Temp Pulse Resp B/P (MAP) Pulse Ox O2 Delivery O2 Flow Rate FiO2 09/16/17 11:20 92 Nasal Cannula 6.0 09/16/17 11:00 98.5 73 18 117/65 (82) 98.5 General: Alert, No acute distress Lungs: Other (few rhonchi) Cardiovascular: S1 Abdomen: Soft, Non-tender Neuro Exam: Alert Extremities: No Edema Skin: Warm Labs Laboratory Tests Test 09/14/17 13:30 09/15/17 04:39 09/16/17 03:55 O2 Saturation 85 % (92-99) Arterial Blood pH 7.43 (7.35-7.45) Arterial Blood pCO2 at Patient Temp 38 mmHg (35-46) Arterial Blood pO2 at Patient Temp 51 mmHg (65-108) Arterial Blood HCO3 24 mmol/L (21-28) Arterial Blood Base Excess 0 mmol/L (-3-3) FiO2 44 Prothrombin Time 52.0 SEC (11.7-14.0) 53.0 SEC (11.7-14.0) Prothromb Time International Ratio 5.9 (0.8-1.1) 6.1 (0.8-1.1) Sodium Level 138 mmol/L (136-145) 143 mmol/L (136-145) Potassium Level 4.3 mmol/L (3.5-5.1) 4.1 mmol/L (3.5-5.1) Chloride Level 106 mmol/L (98-107) 107 mmol/L (98-107) Carbon Dioxide Level 25 mmol/L (21-32) 28 mmol/L (21-32) Anion Gap 7 (6-14) 8 (6-14) Blood Urea Nitrogen 19 mg/dL (7-20) 21 mg/dL (7-20) Creatinine 1.4 mg/dL (0.6-1.0) 1.4 mg/dL (0.6-1.0) Estimated GFR (Cockcroft-Gault) 36.2 36.2 Glucose Level 83 mg/dL (70-99) 92 mg/dL (70-99) Calcium Level 10.3 mg/dL (8.5-10.1) 10.6 mg/dL (8.5-10.1) White Blood Count 3.9 x10^3/uL (4.0-11.0) Red Blood Count 4.14 x10^6/uL (3.50-5.40) Hemoglobin 11.6 g/dL (12.0-15.5) Hematocrit 35.3 % (36.0-47.0) Mean Corpuscular Volume 85 fL (79-100) Mean Corpuscular Hemoglobin 28 pg (25-35) Mean Corpuscular Hemoglobin Concent 33 g/dL (31-37) Red Cell Distribution Width 18.9 % (11.5-14.5) Platelet Count 78 x10^3/uL (140-400) BUN/Creatinine Ratio 15 (6-20) Total Bilirubin 1.3 mg/dL (0.2-1.0) Aspartate Amino Transf (AST/SGOT) 13 U/L (15-37) Alanine Aminotransferase (ALT/SGPT) 13 U/L (14-59) Alkaline Phosphatase 98 U/L (46-116) Total Protein 5.7 g/dL (6.4-8.2) Albumin 2.6 g/dL (3.4-5.0) Albumin/Globulin Ratio 0.8 (1.0-1.7) Laboratory Tests Test 09/16/17 03:55 White Blood Count 3.9 x10^3/uL (4.0-11.0) Red Blood Count 4.14 x10^6/uL (3.50-5.40) Hemoglobin 11.6 g/dL (12.0-15.5) Hematocrit 35.3 % (36.0-47.0) Mean Corpuscular Volume 85 fL (79-100) Mean Corpuscular Hemoglobin 28 pg (25-35) Mean Corpuscular Hemoglobin Concent 33 g/dL (31-37) Red Cell Distribution Width 18.9 % (11.5-14.5) Platelet Count 78 x10^3/uL (140-400) Prothrombin Time 53.0 SEC (11.7-14.0) Prothromb Time International Ratio 6.1 (0.8-1.1) Sodium Level 143 mmol/L (136-145) Potassium Level 4.1 mmol/L (3.5-5.1) Chloride Level 107 mmol/L (98-107) Carbon Dioxide Level 28 mmol/L (21-32) Anion Gap 8 (6-14) Blood Urea Nitrogen 21 mg/dL (7-20) Creatinine 1.4 mg/dL (0.6-1.0) Estimated GFR (Cockcroft-Gault) 36.2 BUN/Creatinine Ratio 15 (6-20) Glucose Level 92 mg/dL (70-99) Calcium Level 10.6 mg/dL (8.5-10.1) Total Bilirubin 1.3 mg/dL (0.2-1.0) Aspartate Amino Transf (AST/SGOT) 13 U/L (15-37) Alanine Aminotransferase (ALT/SGPT) 13 U/L (14-59) Alkaline Phosphatase 98 U/L (46-116) Total Protein 5.7 g/dL (6.4-8.2) Albumin 2.6 g/dL (3.4-5.0) Albumin/Globulin Ratio 0.8 (1.0-1.7) Medications Active Scripts Medications Dose Route/Sig Max Daily Dose Days Date Category Benadryl (Diphenhydramine Hcl) 25 Mg Capsule 1 Cap PO QHS 09/13/17 Reported Systane 0.3-0.4% Eye Drops (Propylene Glycol/Peg 400) 15 Ml Drops 1 Drop RIGHTEYE QID 09/13/17 Reported Citalopram Hbr (Citalopram Hydrobromide) 20 Mg Tablet 1 Tab PO DAILY 09/13/17 Reported Tylenol (Acetaminophen) 325 Mg Tablet 650 Mg PO [id number] 09/13/17 Reported Culturelle (Lactobacillus Rhamnosus Gg) 1 Each Cap.sprink 1 Cap PO BID 14 08/24/17 Rx Combivent Respimat Inhal (Ipratropium/Albuterol Sulfate) 4 Gm Aer.w.adap 2 Inh IH QID 08/15/17 Reported Systane Gel (Hypromellose) 10 Gm Gel..gram. 10 Gm OP 08/15/17 Reported Latanoprost 2.5 Ml Drops 1 Drop EACHEYE QHS 08/15/17 Reported Furosemide 80 Mg Tablet 1 Tab PO BID 08/15/17 Rx Pravastatin Sodium 20 Mg Tablet 1 Tab PO DAILY 05/12/17 Rx Simethicone 180 Mg Capsule 125 Mg PO BID 05/12/17 Reported Melatonin 3 Mg Tablet 10 Mg PO HS 05/12/17 Reported Vitamin B-12 (Cyanocobalamin (Vitamin B-12)) 1,000 Mcg Tablet 2,500 Mcg PO DAILY 05/12/17 Reported Warfarin Sodium 2 Mg Tablet 2.5 Mg PO DAILY 05/12/17 Reported Warfarin Sodium 5 Mg Tablet 1 Tab PO DAILY 05/12/17 Reported Diltiazem 24HR Cd (Diltiazem Hcl) 180 Mg Cap.er.24h 1 Cap PO BID 05/12/17 Reported Levothyroxine Sodium 112 Mcg Tablet 1 Tab PO DAILY 05/12/17 Reported Spironolactone 25 Mg Tablet 1 Tab PO DAILY 02/07/16 Reported Advair 250-50 Diskus (Fluticasone/Salmeterol) 1 Each Disk.w.dev 1 Puff IH BID 02/07/16 Reported Nystop (Nystatin) 1 Jessenia Jessenia 1 Jessenai TP BID 12/19/14 Rx Benadryl (Diphenhydramine Hcl) 25 Mg Capsule 25 Mg PO PRN PRN 12/15/14 Reported Potassium Chloride 10 Meq Tablet.er 1 Tab PO BID 12/15/14 Reported Oxybutynin Chloride Er (Oxybutynin Chloride) 5 Mg Tab.er.24 1 Tab PO BID 12/15/14 Reported Simbrinza 1%-0.2% Eye Drops (Brinzolamide/Brimonid Tart) 8 Ml Drops.susp 8 Ml EACHEYE BID 12/15/14 Reported Advanced Eye Relief Dry Eye Dp (Glycerin/Propylene Glycol) 30 Ml Drops 1 Drop OP PRN Q2HRS PRN 12/15/14 Reported Restasis (Cyclosporine) 1 Each Droperette 1 Drop EACHEYE BID 12/15/14 Reported Omeprazole 20 Mg Capsule.dr 1 Cap PO DAILY 12/15/14 Reported Metoprolol Tartrate 25 Mg Tablet 1 Tab PO BID 12/15/14 Reported Impression . 1. [id number] hypoxic respiratory failure secondary to jeffj-vf-[id number] diastolic heart failure. 2. Oakyl-zw-ehzkgtb diastolic heart failure. 3. Underlying chronic obstructive pulmonary disease with oxygen dependence. 4. Abnormal chest x-ray with worsening interstitial edema and a small left pleural effusion. 5. Leukopenia. 6. Chronic kidney disease stage 3. 7. Coagulopathy. Plan . 1. aggressive diuresis. extra IV lasix today 2. off BiPAP. 3. Continue bronchodilators. 4. Follow chest x-ray post-diuresis mild improvement 5. Continue DuoNebs. 6. Follow Cardiology's recommendations. 7. Monitor white cell count and INR 8. Discussed with RN alvarado with speech eval. THADDEUS LYNCH MD Sep 16, 2017 11:34
[2017-09-16] MEDS ORDERED: FUROSEMIDE 40 MG/4 ML VIAL. IVP ONE (11:45)
--- NOTE | 2017-09-16 12:49 | PDOC ---
CARDIO Progress Notes Date and Time Date of Service 09/16/2017 Time of Evaluation 1248 Subjective Subjective: No Chest Pain, No Palpitations, No Dizziness, Other (breathing improved) Vitals Vitals Vital Signs Date Time Temp Pulse Resp B/P (MAP) Pulse Ox O2 Delivery O2 Flow Rate FiO2 09/16/17 11:20 92 Nasal Cannula 6.0 09/16/17 11:00 98.5 73 18 117/65 (82) 98.5 Weight Weight [ ] Input and Output Intake and Output Intake and Output 09/16/17 07:00 Intake Total 1700 ml Output Total 750 ml Balance 950 ml Intake Oral 1700 ml Output Urine Total 750 ml Laboratory Labs Laboratory Tests Test 09/16/17 03:55 White Blood Count 3.9 x10^3/uL (4.0-11.0) Red Blood Count 4.14 x10^6/uL (3.50-5.40) Hemoglobin 11.6 g/dL (12.0-15.5) Hematocrit 35.3 % (36.0-47.0) Mean Corpuscular Volume 85 fL (79-100) Mean Corpuscular Hemoglobin 28 pg (25-35) Mean Corpuscular Hemoglobin Concent 33 g/dL (31-37) Red Cell Distribution Width 18.9 % (11.5-14.5) Platelet Count 78 x10^3/uL (140-400) Prothrombin Time 53.0 SEC (11.7-14.0) Prothromb Time International Ratio 6.1 (0.8-1.1) Sodium Level 143 mmol/L (136-145) Potassium Level 4.1 mmol/L (3.5-5.1) Chloride Level 107 mmol/L (98-107) Carbon Dioxide Level 28 mmol/L (21-32) Anion Gap 8 (6-14) Blood Urea Nitrogen 21 mg/dL (7-20) Creatinine 1.4 mg/dL (0.6-1.0) Estimated GFR (Cockcroft-Gault) 36.2 BUN/Creatinine Ratio 15 (6-20) Glucose Level 92 mg/dL (70-99) Calcium Level 10.6 mg/dL (8.5-10.1) Total Bilirubin 1.3 mg/dL (0.2-1.0) Aspartate Amino Transf (AST/SGOT) 13 U/L (15-37) Alanine Aminotransferase (ALT/SGPT) 13 U/L (14-59) Alkaline Phosphatase 98 U/L (46-116) Total Protein 5.7 g/dL (6.4-8.2) Albumin 2.6 g/dL (3.4-5.0) Albumin/Globulin Ratio 0.8 (1.0-1.7) Physical Exam HEENT: Neck Supple W Full Motion Chest: Symmetric LUNGS: Other (soft crackles in left posterior base; otherwise coarse posteriorly) Heart: RRR Abdomen: Soft N/T Extremities: No Edema Neurology: alert, oriented, follow commands Assessment Assessment 1. acute on chronic respiratory failure --off bi-pap --defer to PULM 2. acute on chronic diastolic HF --BP controlled now --converted to IV diuretics earlier today 3. chronic atrial fib --rate controlled with BB and CCB --INR supratherapeutic -- on hold, defer to PCP 4. 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 PPM in situ --brand unknown --[facility] records not helpful in determining brand of PPM as received only TTE. TONI ODONNELL TAP OUT OPERATOR Sep 16, 2017 12:49
[2017-09-16] MEDS ORDERED: BARIUM SULFATE 40% (APPLE) 148 GM PWD. PO ONE (14:15)
--- NOTE | 2017-09-16 14:45 | PDOC ---
Objective: Objective: Reviewed chart. Vital Signs: Vital Signs Date Time Temp Pulse Resp B/P (MAP) Pulse Ox O2 Delivery O2 Flow Rate FiO2 09/16/17 11:20 92 Nasal Cannula 6.0 09/16/17 11:00 98.5 73 18 117/65 (82) 98.5 Labs: Laboratory Tests Test 09/16/17 03:55 White Blood Count 3.9 x10^3/uL Red Blood Count 4.14 x10^6/uL Hemoglobin 11.6 g/dL Hematocrit 35.3 % Mean Corpuscular Volume 85 fL Mean Corpuscular Hemoglobin 28 pg Mean Corpuscular Hemoglobin Concent 33 g/dL Red Cell Distribution Width 18.9 % Platelet Count 78 x10^3/uL Prothrombin Time 53.0 SEC Prothromb Time International Ratio 6.1 Sodium Level 143 mmol/L Potassium Level 4.1 mmol/L Chloride Level 107 mmol/L Carbon Dioxide Level 28 mmol/L Anion Gap 8 Blood Urea Nitrogen 21 mg/dL Creatinine 1.4 mg/dL Estimated GFR (Cockcroft-Gault) 36.2 BUN/Creatinine Ratio 15 Glucose Level 92 mg/dL Calcium Level 10.6 mg/dL Total Bilirubin 1.3 mg/dL Aspartate Amino Transf (AST/SGOT) 13 U/L Alanine Aminotransferase (ALT/SGPT) 13 U/L Alkaline Phosphatase 98 U/L Total Protein 5.7 g/dL Albumin 2.6 g/dL Albumin/Globulin Ratio 0.8 Imaging: CXR IMPRESSION: Improved aeration of the right lung base with resolution of small right pleural effusion. There is persistent mild pulmonary vascular congestion. PE: GEN: en route to [facility] w/ transportation LUNGS: tachypneic NEURO/PSYCH: awake A/P: Acute/chronic resp failure/CHF - off BiPAP Dysphagia Warfarin coagulopathy (INR worse - 6.1) -- [facility] ?MICHELLE Vasquez Sep 16, 2017 14:45
[2017-09-16 15:00] VITALS: BP 122/52
--- NOTE | 2017-09-16 15:14 | RAD ---
Video dysphasia study, 09/16/2017: History: Cough, dysphagia, possible aspiration The swallowing mechanism was examined fluoroscopically in the lateral projection with the patient ingested a variety of food materials mixed with barium. 3.8 minutes of fluoroscopy time was utilized. One video fluoroscopic loop was recorded by a member of the speech Department. When ingesting the thin liquids there was deep laryngeal penetration and liudmila aspiration. The aspiration was silent. When the honey thickened material was utilized there was intermittent laryngeal penetration when the patient ingested small boluses. With large boluses there was deeper laryngeal penetration with intermittent liudmila aspiration. The aspiration in this patient is related to delayed pharyngeal peristalsis with pooling of materials in the vallecula. Once initiated the pharyngeal peristalsis is good with the majority of the barium bolus passed normally through the cervical esophagus. There was very little vallecular or piriform sinus residue. The patient ingested the pudding consistency material and the barium coated solids without additional aspiration. IMPRESSION: Disordered swallowing mechanism with aspiration of the thin liquids which abated when small boluses of the thicker materials were utilized.
[2017-09-16 19:00] VITALS: BP 106/58
[2017-09-16] MEDS: ATORVASTATIN CALCIUM 10 MG TABLET. PO SCH (22:04)
[2017-09-16] MEDS: LATANOPROST 0.005% OPHTH SOLUTION 2.5ML BOTTLE. OU SCH (22:07)
[2017-09-16 23:00] VITALS: BP 113/58
[2017-09-17] MEDS: diphenhydrAMINE HCL 25 MG CAPSULE PO PRN ×2 (00:11→21:44)
[2017-09-17] MEDS: NYSTATIN TOPICAL POWDER 15GM BOTTLE. TP SCH ×3 (00:16→21:57)
[2017-09-17 03:00] VITALS: BP 110/53
[2017-09-17] MEDS: LEVOTHYROXINE 112 MCG TABLET PO SCH (06:22)
[2017-09-17 07:00] VITALS: BP 121/65
[2017-09-17] MEDS: IPRATRPIUM/ALBUTEROL 0.5/2.5MG 3 ML NEBU. NEB SCH ×4 (08:01→20:39)
[2017-09-17] MEDS: BUDESONIDE 0.5 MG/2 ML NEBU. NEB SCH ×2 (08:01→20:39)
[2017-09-17] MEDS: OXYBUTYNIN CHLORIDE 5 MG TABLET PO SCH ×2 (09:02→21:44)
[2017-09-17] MEDS: SPIRONOLACTONE 25 MG TABLET PO SCH (09:02)
[2017-09-17] MEDS: SIMETHICONE 80 MG TAB.CHEW PO SCH ×2 (09:02→21:45)
[2017-09-17] MEDS: CITALOPRAM 20 MG TABLET. PO SCH (09:02)
[2017-09-17] MEDS: FUROSEMIDE 100 MG/10 ML VIAL. IVP SCH ×2 (09:02→13:53)
[2017-09-17] MEDS: CYANOCOBALAMIN (VITAMIN B-12) 1,000 MCG TABLET. PO SCH (09:03)
[2017-09-17] MEDS: POTASSIUM CHLORIDE 10 MEQ TABLET.ER. PO SCH ×2 (09:03→21:57)
[2017-09-17] MEDS: cycloSPORINE 0.05% OPTH 1 DROP DROPERETTE OU SCH ×2 (09:03→21:43)
[2017-09-17] MEDS: BRIMONIDINE 0.2% OPHTH SOLUTION 5ML BOTTLE. OU SCH ×2 (09:03→21:49)
[2017-09-17] MEDS: METOPROLOL TART IMMED RELEASE 25 MG TABLET. PO SCH ×2 (09:03→21:45)
[2017-09-17] MEDS: POLYVINYL ALCOHOL 1.4% OPHTH SOLUTION 15ML BOTTLE. OD SCH ×4 (09:03→21:44)
[2017-09-17] MEDS: DORZOLAMIDE 2% OPHTH SOLUTION 10ML BOTTLE. OU SCH ×2 (09:03→21:46)
[2017-09-17] MEDS: PANTOPRAZOLE 40 MG TABLET.DR. PO SCH (09:03)
[2017-09-17] MEDS: LACTOBACILLUS RHAMNOSUS GG 1 CAPSULE. PO SCH ×2 (09:05→21:44)
[2017-09-17 09:24] LABS: BASO % 1 % (0-3); EOS % 0 % (0-3); HEMATOCRIT 36.2 % (36.0-47.0); HEMOGLOBIN 11.7 g/dL (12.0-15.5); LYMPH # 0.7 x10^3/uL (1.0-4.8); LYMPH % 13 % (24-48); MEAN CORPUSCULAR HEMOGLOBIN 28 pg (25-35); MEAN CORPUSCULAR HGB CONC 32 g/dL (31-37); MEAN CORPUSCULAR VOLUME 86 fL (79-100); MONO # 0.5 x10^3/uL (0.0-1.1); MONO % 11 % (0-9); NEUT # 3.8 x10^3uL (1.8-7.7); NEUT % 76 % (31-73); PLATELET COUNT 82 x10^3/uL (140-400); RED BLOOD COUNT 4.22 x10^6/uL (3.50-5.40)
[2017-09-17 09:28] LABS: CALCIUM 10.5 mg/dL (8.5-10.1); CREATININE 1.6 mg/dL (0.6-1.0); POTASSIUM 4.1 mmol/L (3.5-5.1)
[2017-09-17 09:35] LABS: PROTHROMBIN TIME PATIENT 54.6 SEC (11.7-14.0)
[2017-09-17] MEDS ORDERED: PHYTONADIONE 10 MG/ML AMPUL. SQ ONE (10:00)
--- NOTE | 2017-09-17 10:07 | PDOC ---
PROGRESS NOTES Subjective Subjective Patient without complaint. Tolerated Bipap overnight. Wants to get out of bed. Objective Objective Vital Signs Date Time Temp Pulse Resp B/P (MAP) Pulse Ox O2 Delivery O2 Flow Rate FiO2 09/17/17 09:03 65 121/65 09/17/17 08:05 Nasal Cannula 6.0 09/17/17 07:00 18 87 09/17/17 03:00 97.7 97.7 Intake and Output 09/17/17 07:00 Intake Total 770 ml Output Total 800 ml Balance -30 ml Intake Oral 770 ml Output Urine Total 800 ml Physical Exam Abdomen: Normal bowel sounds, Soft, No tenderness Heart: Other (irregularly irregular) Extremities: No edema General: Alert, No acute distress Lungs: Other (BS decreased throughout but otherwise CTA) Plan Plan of Care 1. Acute on chronic respiratory failure with COPD - doing better, now tolerating O2 at 6L per NC during the day. Continue present care. 2. acute exacerbation of CHF - not much urine output yesterday with increased Lasix IV. Will continue her usual dose BID today and follow. 3. dysphagia - video swallow showed significant aspiration with thin liquids, and even with moderate amounts of thickened liquids. Continue on mechanical soft diet with only small amounts of thickened liquids at a time. Patient and daughter comfortable with this. 4. anticoagulation - INR continues over 6, Vitamin K x1 ordered. When INR is lower will change her to one of the newer anticoagulants to decrease risks of coagulopathy recurring. 5. chronic afib - rate controlled, continue present meds. 6. CKD III - creatinine stable, BUN slowly increasing. May be difficult to maintain adequate hydration with swallowing restrictions as above so may eventually need a lower dose of Lasix chronically. 7. debility - resume therapies and have patient out of bed daily. Comment Review of Relevant I have reviewed the following items muna (where applicable) has been applied. Labs Laboratory Tests Test 09/16/17 03:55 09/17/17 09:00 White Blood Count 3.9 x10^3/uL (4.0-11.0) 5.0 x10^3/uL (4.0-11.0) Red Blood Count 4.14 x10^6/uL (3.50-5.40) 4.22 x10^6/uL (3.50-5.40) Hemoglobin 11.6 g/dL (12.0-15.5) 11.7 g/dL (12.0-15.5) Hematocrit 35.3 % (36.0-47.0) 36.2 % (36.0-47.0) Mean Corpuscular Volume 85 fL (79-100) 86 fL (79-100) Mean Corpuscular Hemoglobin 28 pg (25-35) 28 pg (25-35) Mean Corpuscular Hemoglobin Concent 33 g/dL (31-37) 32 g/dL (31-37) Red Cell Distribution Width 18.9 % (11.5-14.5) 19.0 % (11.5-14.5) Platelet Count 78 x10^3/uL (140-400) 82 x10^3/uL (140-400) Prothrombin Time 53.0 SEC (11.7-14.0) 54.6 SEC (11.7-14.0) Prothromb Time International Ratio 6.1 (0.8-1.1) 6.3 (0.8-1.1) Sodium Level 143 mmol/L (136-145) 142 mmol/L (136-145) Potassium Level 4.1 mmol/L (3.5-5.1) 4.1 mmol/L (3.5-5.1) Chloride Level 107 mmol/L (98-107) 106 mmol/L (98-107) Carbon Dioxide Level 28 mmol/L (21-32) 30 mmol/L (21-32) Anion Gap 8 (6-14) 6 (6-14) Blood Urea Nitrogen 21 mg/dL (7-20) 22 mg/dL (7-20) Creatinine 1.4 mg/dL (0.6-1.0) 1.6 mg/dL (0.6-1.0) Estimated GFR (Cockcroft-Gault) 36.2 31.0 BUN/Creatinine Ratio 15 (6-20) Glucose Level 92 mg/dL (70-99) 126 mg/dL (70-99) Calcium Level 10.6 mg/dL (8.5-10.1) 10.5 mg/dL (8.5-10.1) Total Bilirubin 1.3 mg/dL (0.2-1.0) Aspartate Amino Transf (AST/SGOT) 13 U/L (15-37) Alanine Aminotransferase (ALT/SGPT) 13 U/L (14-59) Alkaline Phosphatase 98 U/L (46-116) Total Protein 5.7 g/dL (6.4-8.2) Albumin 2.6 g/dL (3.4-5.0) Albumin/Globulin Ratio 0.8 (1.0-1.7) Neutrophils (%) (Auto) 76 % (31-73) Lymphocytes (%) (Auto) 13 % (24-48) Monocytes (%) (Auto) 11 % (0-9) Eosinophils (%) (Auto) 0 % (0-3) Basophils (%) (Auto) 1 % (0-3) Neutrophils # (Auto) 3.8 x10^3uL (1.8-7.7) Lymphocytes # (Auto) 0.7 x10^3/uL (1.0-4.8) Monocytes # (Auto) 0.5 x10^3/uL (0.0-1.1) Eosinophils # (Auto) 0.0 x10^3/uL (0.0-0.7) Basophils # (Auto) 0.0 x10^3/uL (0.0-0.2) Laboratory Tests Test 09/17/17 09:00 White Blood Count 5.0 x10^3/uL (4.0-11.0) Red Blood Count 4.22 x10^6/uL (3.50-5.40) Hemoglobin 11.7 g/dL (12.0-15.5) Hematocrit 36.2 % (36.0-47.0) Mean Corpuscular Volume 86 fL (79-100) Mean Corpuscular Hemoglobin 28 pg (25-35) Mean Corpuscular Hemoglobin Concent 32 g/dL (31-37) Red Cell Distribution Width 19.0 % (11.5-14.5) Platelet Count 82 x10^3/uL (140-400) Neutrophils (%) (Auto) 76 % (31-73) Lymphocytes (%) (Auto) 13 % (24-48) Monocytes (%) (Auto) 11 % (0-9) Eosinophils (%) (Auto) 0 % (0-3) Basophils (%) (Auto) 1 % (0-3) Neutrophils # (Auto) 3.8 x10^3uL (1.8-7.7) Lymphocytes # (Auto) 0.7 x10^3/uL (1.0-4.8) Monocytes # (Auto) 0.5 x10^3/uL (0.0-1.1) Eosinophils # (Auto) 0.0 x10^3/uL (0.0-0.7) Basophils # (Auto) 0.0 x10^3/uL (0.0-0.2) Prothrombin Time 54.6 SEC (11.7-14.0) Prothromb Time International Ratio 6.3 (0.8-1.1) Sodium Level 142 mmol/L (136-145) Potassium Level 4.1 mmol/L (3.5-5.1) Chloride Level 106 mmol/L (98-107) Carbon Dioxide Level 30 mmol/L (21-32) Anion Gap 6 (6-14) Blood Urea Nitrogen 22 mg/dL (7-20) Creatinine 1.6 mg/dL (0.6-1.0) Estimated GFR (Cockcroft-Gault) 31.0 Glucose Level 126 mg/dL (70-99) Calcium Level 10.5 mg/dL (8.5-10.1) Medications Current Medications Furosemide (Lasix) 40 mg 1X ONCE IVP Last administered on 09/13/17at 17:21; Start 09/13/17 at 17:00; Stop 09/13/17 at 17:01; Status DC Ondansetron HCl (Zofran) 4 mg PRN Q8HRS PRN IV NAUSEA/VOMITING; Start 09/13/17 at 16:30; Stop 09/14/17 at 16:29; Status DC Acetaminophen (Tylenol) 650 mg PRN Q4HRS PRN PO FEVER; Start 09/13/17 at 16:30; Stop 09/13/17 at 23:31; Status DC Albuterol/ Ipratropium (Duoneb) 3 ml RTQID NEB Last administered on 09/17/17at 08:01; Start 09/13/17 at 20:00 Cyclosporine (Restasis) 1 drop BID OU Last administered on 09/17/17at 09:03; Start 09/13/17 at 22:00 Diphenhydramine HCl (Benadryl) 25 mg PRN QHS PRN PO INSOMNIA 1ST CHOICE Last administered on 09/17/17 00:11; Start 09/13/17 at 21:45 Lactobacillus Rhamnosus (Culturelle) 1 cap BID PO Last administered on 09:05; Start 09/13/17 at 22:00 Metoprolol Tartrate (Lopressor) 25 mg BID PO Last administered on 09/17/17 09: 03; Start 09/13/17 at 22:00 Nystatin (Nystop) 1 jessenia BID TP Last administered on 09/17/17 09:02; Start 09/13 at 22:00 Potassium Chloride (Klor-Con) 10 meq BID PO Last administered on 09/17/17 09: 03; Start 09/13/17 at 22:00 Dorzolamide HCl (Trusopt) 1 drop BID OU Last administered on 09/17/17 09:03; Start 09/13/17 at 22:00 Budesonide (Pulmicort) 0.5 mg RTBID NEB Last administered on 09/17/17 08:01; Start 09/13/17 at 22:00 Artificial Tears (Artificial Tears) 1 drop PRN Q2HR PRN OU DRY EYE; Start at 22:00 Latanoprost (Xalatan) 1 drop QHS OU Last administered on 09/16/17 22:07; Start 09/13/17 at 22:00 Oxybutynin Chloride (Ditropan) 5 mg BID PO Last administered on 09/17/17 09:02 ; Start 09/13/17 at 22:00 Artificial Tears (Artificial Tears) 1 drop QID OD Last administered on 09:03; Start 09/14/17 at 09:00 Simethicone (Gas-X) 80 mg BID PO Last administered on 09/17/17 09:02; Start at 22:00 Brimonidine Tartrate (Alphagan) 1 drop BID OU Last administered on 09/17/17 09 :03; Start 09/13/17 at 22:00 Acetaminophen (Tylenol) 650 mg PRN Q6HRS PRN PO MILD PAIN / TEMP Last administered on 09/16/17 11:54; Start 09/13/17 at 23:30 Citalopram Hydrobromide (CeleXA) 20 mg DAILY PO Last administered on 09/17/17 09:02; Start 09/14/17 at 09:00 Cyanocobalamin (Vitamin B-12) 2,500 mcg DAILY PO Last administered on at 09:03; Start 09/14/17 at 09:00 Furosemide (Lasix) 80 mg BID92 PO Last administered on 09/15/17 13:23; Start at 09:00; Stop 09/16/17 at 08:56; Status DC Levothyroxine Sodium (Synthroid) 112 mcg DAILY07 PO Last administered on 06:22; Start 09/14/17 at 09:00 Diltiazem HCl (Cardizem 24hr Cd) 180 mg BID PO Last administered on 09/17/17 09:02; Start 09/14/17 at 10:00 Non-Formulary Medication (Ipratropium/ Albuterol Sulfate (Combivent Respimat Inhal)) 2 inh QID IH ; Start 09/14/17 at 09:00; Stop 09/14/17 at 09:10; Status DC Non-Formulary Medication (Melatonin ) 10 mg HS PO ; Start 09/14/17 at 21:00; Stop 09/14/17 at 21:00; Status DC Pantoprazole Sodium (Protonix) 40 mg DAILYAC PO Last administered on 09/17/17 09:03; Start 09/14/17 at 09:00 Atorvastatin Calcium (Lipitor) 5 mg QHS PO Last administered on 09/16/17at 22:04 ; Start 09/14/17 at 21:00 Spironolactone (Aldactone) 25 mg DAILY PO Last administered on 09/17/17at 09:02 ; Start 09/14/17 at 10:00 Albuterol/ Ipratropium (Duoneb) 3 ml RTQID NEB ; Start 09/14/17 at 12:00; Stop at 12:00; Status DC Furosemide (Lasix) 60 mg 1X ONCE IVP Last administered on 09/14/17at 15:34; Start 09/14/17 at 15:45; Stop 09/14/17 at 15:46; Status DC Haloperidol (Haldol) 2 mg PRN Q2HR PRN PO AGITATION; Start 09/15/17 at 12:30 Haloperidol Lactate (Haldol Inj) 2 mg PRN Q2HR PRN IVP AGITATION Last administered on 09/16/17at 02:32; Start 09/15/17 at 13:15 Lorazepam (Ativan) 0.5 mg PRN Q4HRS PRN IV ANXIETY / AGITATION; Start 09/16/17 at 08:45 Furosemide (Lasix) 80 mg [id number] IVP Last administered on 09/17/17at 09:02; Start 09/16/17 at 09:00 Furosemide (Lasix) 40 mg 1X ONCE IVP Last administered on 09/16/17at 11:54; Start 09/16/17 at 11:45; Stop 09/16/17 at 11:46; Status DC Barium Sulfate (Varibar Thin Liquid Apple) 148 gm 1X ONCE PO Last administered on 09/16/17at 14:15; Start 09/16/17 at 14:15; Stop 09/16/17 at 14:16; Status DC Active Scripts Active Culturelle (Lactobacillus Rhamnosus Gg) 1 Each Cap.sprink 1 Cap PO BID 14 Days Furosemide 80 Mg Tablet 1 Tab PO BID Pravastatin Sodium 20 Mg Tablet 1 Tab PO DAILY Nystop (Nystatin) 1 Jessenia Jessenia 1 Jessenia TP BID Reported Benadryl (Diphenhydramine Hcl) 25 Mg Capsule 1 Cap PO QHS Systane 0.3-0.4% Eye Drops (Propylene Glycol/Peg 400) 15 Ml Drops 1 Drop RIGHTEYE QID Citalopram Hbr (Citalopram Hydrobromide) 20 Mg Tablet 1 Tab PO DAILY Tylenol (Acetaminophen) 325 Mg Tablet 650 Mg PO [id number] Combivent Respimat Inhal (Ipratropium/Albuterol Sulfate) 4 Gm Aer.w.adap 2 Inh IH QID Systane Gel (Hypromellose) 10 Gm Gel..gram. 10 Gm OP Latanoprost 2.5 Ml Drops 1 Drop EACHEYE QHS Simethicone 180 Mg Capsule 125 Mg PO BID Melatonin 3 Mg Tablet 10 Mg PO HS Vitamin B-12 (Cyanocobalamin (Vitamin B-12)) 1,000 Mcg Tablet 2,500 Mcg PO DAILY Warfarin Sodium 2 Mg Tablet 2.5 Mg PO DAILY Warfarin Sodium 5 Mg Tablet 1 Tab PO DAILY Diltiazem 24HR Cd (Diltiazem Hcl) 180 Mg Cap.er.24h 1 Cap PO BID Levothyroxine Sodium 112 Mcg Tablet 1 Tab PO DAILY Spironolactone 25 Mg Tablet 1 Tab PO DAILY Advair 250-50 Diskus (Fluticasone/Salmeterol) 1 Each Disk.w.dev 1 Puff IH BID Benadryl (Diphenhydramine Hcl) 25 Mg Capsule 25 Mg PO PRN PRN Potassium Chloride 10 Meq Tablet.er 1 Tab PO BID Oxybutynin Chloride Er (Oxybutynin Chloride) 5 Mg Tab.er.24 1 Tab PO BID Simbrinza 1%-0.2% Eye Drops (Brinzolamide/Brimonid Tart) 8 Ml Drops.susp 8 Ml EACHEYE BID Advanced Eye Relief Dry Eye Dp (Glycerin/Propylene Glycol) 30 Ml Drops 1 Drop OP PRN Q2HRS PRN Restasis (Cyclosporine) 1 Each Droperette 1 Drop EACHEYE BID Omeprazole 20 Mg Capsule. 1 Cap PO DAILY Metoprolol Tartrate 25 Mg Tablet 1 Tab PO BID Vitals/I & O Vital Sign - Last 24 Hours 09/16/17 09/16/17 09/16/17 09/16/17 11:00 11:20 15:00 15:34 Temp 98.5 98.0 98.5 98.0 Pulse 73 67 Resp 18 18 B/P (MAP) 117/65 (82) 122/52 (75) Pulse Ox 90 92 90 91 O2 Delivery 6L/ BIPAP Nasal Cannula BIPAP/6L Nasal Cannula O2 Flow Rate 6.0 6.0 09/16/17 09/16/17 09/16/17 09/16/17 19:00 20:00 20:32 20:33 Temp 98.1 98.1 Pulse 68 Resp 20 B/P (MAP) 106/58 (74) Pulse Ox 96 95 95 O2 Delivery Nasal Cannula Bi-pap Nasal Cannula Nasal Cannula O2 Flow Rate 6.0 6.0 6.0 6.0 09/16/17 09/16/17 09/16/17 09/17/17 22:02 22:05 23:00 00:15 Temp 98.1 98.1 Pulse 68 68 68 Resp 20 B/P (MAP) 106/58 106/58 113/58 (76) Pulse Ox 93 O2 Delivery Nasal Cannula BiPAP/CPAP O2 Flow Rate 6.0 09/17/17 09/17/17 09/17/17 09/17/17 01:53 03:00 03:18 07:00 Temp 97.7 97.7 Pulse 61 65 Resp 20 18 B/P (MAP) 110/53 (72) 121/65 (83) Pulse Ox 97 87 O2 Delivery BiPAP/CPAP Nasal Cannula BiPAP/CPAP BIPAP/6L O2 Flow Rate 6.0 09/17/17 09/17/17 09/17/17 08:05 09:02 09:03 Pulse 65 65 B/P (MAP) 121/65 121/65 O2 Delivery Nasal Cannula O2 Flow Rate 6.0 Intake and Output 09/16/17 09/16/17 09/17/17 15:00 23:00 07:00 Intake Total 300 ml 120 ml 350 ml Output Total 400 ml 400 ml Balance 300 ml -280 ml -50 ml TOÑITO PEREYRA MD Sep 17, 2017 10:07
--- NOTE | 2017-09-17 10:11 | PDOC ---
CARDIO Progress Notes Date and Time Date of Service 09/17/2017 Time of Evaluation 1011 Subjective Subjective: No Chest Pain, No Palpitations, No Dizziness, Other (feels like breathing worse today) Vitals Vitals Vital Signs Date Time Temp Pulse Resp B/P (MAP) Pulse Ox O2 Delivery O2 Flow Rate FiO2 09/17/17 09:03 65 121/65 09/17/17 08:05 Nasal Cannula 6.0 09/17/17 07:00 18 87 09/17/17 03:00 97.7 97.7 Weight Weight [ ] Input and Output Intake and Output Intake and Output 09/17/17 07:00 Intake Total 770 ml Output Total 800 ml Balance -30 ml Intake Oral 770 ml Output Urine Total 800 ml Laboratory Labs Laboratory Tests Test 09/17/17 09:00 White Blood Count 5.0 x10^3/uL (4.0-11.0) Red Blood Count 4.22 x10^6/uL (3.50-5.40) Hemoglobin 11.7 g/dL (12.0-15.5) Hematocrit 36.2 % (36.0-47.0) Mean Corpuscular Volume 86 fL (79-100) Mean Corpuscular Hemoglobin 28 pg (25-35) Mean Corpuscular Hemoglobin Concent 32 g/dL (31-37) Red Cell Distribution Width 19.0 % (11.5-14.5) Platelet Count 82 x10^3/uL (140-400) Neutrophils (%) (Auto) 76 % (31-73) Lymphocytes (%) (Auto) 13 % (24-48) Monocytes (%) (Auto) 11 % (0-9) Eosinophils (%) (Auto) 0 % (0-3) Basophils (%) (Auto) 1 % (0-3) Neutrophils # (Auto) 3.8 x10^3uL (1.8-7.7) Lymphocytes # (Auto) 0.7 x10^3/uL (1.0-4.8) Monocytes # (Auto) 0.5 x10^3/uL (0.0-1.1) Eosinophils # (Auto) 0.0 x10^3/uL (0.0-0.7) Basophils # (Auto) 0.0 x10^3/uL (0.0-0.2) Prothrombin Time 54.6 SEC (11.7-14.0) Prothromb Time International Ratio 6.3 (0.8-1.1) Sodium Level 142 mmol/L (136-145) Potassium Level 4.1 mmol/L (3.5-5.1) Chloride Level 106 mmol/L (98-107) Carbon Dioxide Level 30 mmol/L (21-32) Anion Gap 6 (6-14) Blood Urea Nitrogen 22 mg/dL (7-20) Creatinine 1.6 mg/dL (0.6-1.0) Estimated GFR (Cockcroft-Gault) 31.0 Glucose Level 126 mg/dL (70-99) Calcium Level 10.5 mg/dL (8.5-10.1) Physical Exam HEENT: Neck Supple W Full Motion Chest: Symmetric LUNGS: Other (soft crackles in left posterior base; otherwise coarse posteriorly) Heart: RRR, other (V-paced; A - sensed) Abdomen: Soft N/T Extremities: No Edema Neurology: alert, oriented, follow commands Assessment Assessment 1. acute on chronic respiratory failure --off bi-pap --defer to PULM 2. acute on chronic diastolic HF --BP controlled now --remains on BID IV diuretics 3. chronic atrial fib --rate controlled with BB and CCB --INR supratherapeutic -- continues to climb despite warfarin being on hold 4. 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 PPM in situ --[employer] interrogated 05/2017 with normal function and SIN estimated ~ 3.5 years --implanted 07/2010 TONI ODONNELL APRN Sep 17, 2017 10:11
--- NOTE | 2017-09-17 10:36 | PDOC ---
Subjective: Subjective: Daughter present, better today. Objective: Objective: Reviewed w/ Dr. Lees and RN - doing well dysphagia diet/teaspoons of liquids, plans for vit K w/ ongoing coagulopathy, maybe [facility]. Vital Signs: Vital Signs Date Time Temp Pulse Resp B/P (MAP) Pulse Ox O2 Delivery O2 Flow Rate FiO2 09/17/17 09:03 65 121/65 09/17/17 08:05 Nasal Cannula 6.0 09/17/17 07:00 18 87 09/17/17 03:00 97.7 97.7 Labs: Laboratory Tests Test 09/17/17 09:00 White Blood Count 5.0 x10^3/uL Red Blood Count 4.22 x10^6/uL Hemoglobin 11.7 g/dL Hematocrit 36.2 % Mean Corpuscular Volume 86 fL Mean Corpuscular Hemoglobin 28 pg Mean Corpuscular Hemoglobin Concent 32 g/dL Red Cell Distribution Width 19.0 % Platelet Count 82 x10^3/uL Neutrophils (%) (Auto) 76 % Lymphocytes (%) (Auto) 13 % Monocytes (%) (Auto) 11 % Eosinophils (%) (Auto) 0 % Basophils (%) (Auto) 1 % Neutrophils # (Auto) 3.8 x10^3uL Lymphocytes # (Auto) 0.7 x10^3/uL Monocytes # (Auto) 0.5 x10^3/uL Eosinophils # (Auto) 0.0 x10^3/uL Basophils # (Auto) 0.0 x10^3/uL Prothrombin Time 54.6 SEC Prothromb Time International Ratio 6.3 Sodium Level 142 mmol/L Potassium Level 4.1 mmol/L Chloride Level 106 mmol/L Carbon Dioxide Level 30 mmol/L Anion Gap 6 Blood Urea Nitrogen 22 mg/dL Creatinine 1.6 mg/dL Estimated GFR (Cockcroft-Gault) 31.0 Glucose Level 126 mg/dL Calcium Level 10.5 mg/dL Imaging: Initial Videoswallow Study Results Pt demo'd SILENT aspiration before swallow d/t oropharyngeal delay w/continued instances of aspiration during swallow d/t reduced hyolaryngeal excursion / reduced airway closure. SILENT aspiration occurred on thin and honey thick liquids. Pt required max cues to reduce bolus size via cup and was not able to consistently do so, thus she con't to intermittently aspirate SILENTLY when bolus size was not reduced. Tsp honey thick was not aspirated. Puree and solids appeared safe but inefficient. Dentures were in place at the time of this study. IMPRESSIONS: Moderate oropharyngeal dysphagia w/SILENT aspiration of thin and honey thick liquids d/t oropharyngeal delay and weakness. Delayed swallow will result in inefficient, and potentially limited amts, of po intake. Additionally , pt requires tsp amts of honey thick liquid in order for safe intake. As a result, po intake will likely fall below pt's nutrition and hydration needs. Etiology of current dysphagia is likely pt's general debility associated w/ current acute illness. Swallow function may improve if respiratory status and overall strength/med condition improve. Pt is at HIGH risk of SILENT aspiration w/cup drinks of liquid. Additionally, risk of aspiration w/other consistencies may vary w/level of SOA pt is experiencing. 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 RECOMMENDATIONS: MD to consider need for supplemental non-oral given teaspoon restriction on liquids?Dysphagia II diet w/honey thick liquids VIA TE[employer] ONLY. Meds crushed. Pt will require supervision w/liquids by TE[employer]PO[employer] until she is able to independently recall this restriction. Results reviewed w/pt w/ questionable retention of info. Written precautions returned to w/pt to be posted HOB. Diet orders entered. Consult dietitian re: po intake meeting nutrition/hydration needs? IMPRESSION: Disordered swallowing mechanism with aspiration of the thin liquids which abated when small boluses of the thicker materials were utilized. PE: GEN: NAD LUNGS: NC, better HEART: RRR ABD: BS+, soft, non-tender NEURO/PSYCH: more alert A/P: Acute/chronic resp failure - improving Dysphagia Warfarin coagulopathy (INR still worse - 6.3 - plans for vit K) -- Continue current diet, consider esophagram later. MICHELLE SAEZ Sep 17, 2017 10:36
[2017-09-17 11:00] VITALS: BP 123/62
--- NOTE | 2017-09-17 12:23 | PDOC ---
PULMONARY PROGRESS NOTES Subjective off bipap feels better Vitals Vital Signs Date Time Temp Pulse Resp B/P (MAP) Pulse Ox O2 Delivery O2 Flow Rate FiO2 09/17/17 11:58 Nasal Cannula 6.0 09/17/17 11:00 98.5 66 18 123/62 (82) 90 98.5 General: Alert, No acute distress Lungs: Other (few rhonchi) Cardiovascular: S1 Abdomen: Soft, Non-tender Neuro Exam: Alert Extremities: No Edema Skin: Warm Labs Laboratory Tests Test 09/16/17 03:55 09/17/17 09:00 White Blood Count 3.9 x10^3/uL (4.0-11.0) 5.0 x10^3/uL (4.0-11.0) Red Blood Count 4.14 x10^6/uL (3.50-5.40) 4.22 x10^6/uL (3.50-5.40) Hemoglobin 11.6 g/dL (12.0-15.5) 11.7 g/dL (12.0-15.5) Hematocrit 35.3 % (36.0-47.0) 36.2 % (36.0-47.0) Mean Corpuscular Volume 85 fL (79-100) 86 fL (79-100) Mean Corpuscular Hemoglobin 28 pg (25-35) 28 pg (25-35) Mean Corpuscular Hemoglobin Concent 33 g/dL (31-37) 32 g/dL (31-37) Red Cell Distribution Width 18.9 % (11.5-14.5) 19.0 % (11.5-14.5) Platelet Count 78 x10^3/uL (140-400) 82 x10^3/uL (140-400) Prothrombin Time 53.0 SEC (11.7-14.0) 54.6 SEC (11.7-14.0) Prothromb Time International Ratio 6.1 (0.8-1.1) 6.3 (0.8-1.1) Sodium Level 143 mmol/L (136-145) 142 mmol/L (136-145) Potassium Level 4.1 mmol/L (3.5-5.1) 4.1 mmol/L (3.5-5.1) Chloride Level 107 mmol/L (98-107) 106 mmol/L (98-107) Carbon Dioxide Level 28 mmol/L (21-32) 30 mmol/L (21-32) Anion Gap 8 (6-14) 6 (6-14) Blood Urea Nitrogen 21 mg/dL (7-20) 22 mg/dL (7-20) Creatinine 1.4 mg/dL (0.6-1.0) 1.6 mg/dL (0.6-1.0) Estimated GFR (Cockcroft-Gault) 36.2 31.0 BUN/Creatinine Ratio 15 (6-20) Glucose Level 92 mg/dL (70-99) 126 mg/dL (70-99) Calcium Level 10.6 mg/dL (8.5-10.1) 10.5 mg/dL (8.5-10.1) Total Bilirubin 1.3 mg/dL (0.2-1.0) Aspartate Amino Transf (AST/SGOT) 13 U/L (15-37) Alanine Aminotransferase (ALT/SGPT) 13 U/L (14-59) Alkaline Phosphatase 98 U/L (46-116) Total Protein 5.7 g/dL (6.4-8.2) Albumin 2.6 g/dL (3.4-5.0) Albumin/Globulin Ratio 0.8 (1.0-1.7) Neutrophils (%) (Auto) 76 % (31-73) Lymphocytes (%) (Auto) 13 % (24-48) Monocytes (%) (Auto) 11 % (0-9) Eosinophils (%) (Auto) 0 % (0-3) Basophils (%) (Auto) 1 % (0-3) Neutrophils # (Auto) 3.8 x10^3uL (1.8-7.7) Lymphocytes # (Auto) 0.7 x10^3/uL (1.0-4.8) Monocytes # (Auto) 0.5 x10^3/uL (0.0-1.1) Eosinophils # (Auto) 0.0 x10^3/uL (0.0-0.7) Basophils # (Auto) 0.0 x10^3/uL (0.0-0.2) Laboratory Tests Test 09/17/17 09:00 White Blood Count 5.0 x10^3/uL (4.0-11.0) Red Blood Count 4.22 x10^6/uL (3.50-5.40) Hemoglobin 11.7 g/dL (12.0-15.5) Hematocrit 36.2 % (36.0-47.0) Mean Corpuscular Volume 86 fL (79-100) Mean Corpuscular Hemoglobin 28 pg (25-35) Mean Corpuscular Hemoglobin Concent 32 g/dL (31-37) Red Cell Distribution Width 19.0 % (11.5-14.5) Platelet Count 82 x10^3/uL (140-400) Neutrophils (%) (Auto) 76 % (31-73) Lymphocytes (%) (Auto) 13 % (24-48) Monocytes (%) (Auto) 11 % (0-9) Eosinophils (%) (Auto) 0 % (0-3) Basophils (%) (Auto) 1 % (0-3) Neutrophils # (Auto) 3.8 x10^3uL (1.8-7.7) Lymphocytes # (Auto) 0.7 x10^3/uL (1.0-4.8) Monocytes # (Auto) 0.5 x10^3/uL (0.0-1.1) Eosinophils # (Auto) 0.0 x10^3/uL (0.0-0.7) Basophils # (Auto) 0.0 x10^3/uL (0.0-0.2) Prothrombin Time 54.6 SEC (11.7-14.0) Prothromb Time International Ratio 6.3 (0.8-1.1) Sodium Level 142 mmol/L (136-145) Potassium Level 4.1 mmol/L (3.5-5.1) Chloride Level 106 mmol/L (98-107) Carbon Dioxide Level 30 mmol/L (21-32) Anion Gap 6 (6-14) Blood Urea Nitrogen 22 mg/dL (7-20) Creatinine 1.6 mg/dL (0.6-1.0) Estimated GFR (Cockcroft-Gault) 31.0 Glucose Level 126 mg/dL (70-99) Calcium Level 10.5 mg/dL (8.5-10.1) Medications Active Scripts Medications Dose Route/Sig Max Daily Dose Days Date Category Benadryl (Diphenhydramine Hcl) 25 Mg Capsule 1 Cap PO QHS 09/13/17 Reported Systane 0.3-0.4% Eye Drops (Propylene Glycol/Peg 400) 15 Ml Drops 1 Drop RIGHTEYE QID 09/13/17 Reported Citalopram Hbr (Citalopram Hydrobromide) 20 Mg Tablet 1 Tab PO DAILY 09/13/17 Reported Tylenol (Acetaminophen) 325 Mg Tablet 650 Mg PO [id number] 09/13/17 Reported Culturelle (Lactobacillus Rhamnosus Gg) 1 Each Cap.sprink 1 Cap PO BID 14 08/24/17 Rx Combivent Respimat Inhal (Ipratropium/Albuterol Sulfate) 4 Gm Aer.w.adap 2 Inh IH QID 08/15/17 Reported Systane Gel (Hypromellose) 10 Gm Gel..gram. 10 Gm OP 08/15/17 Reported Latanoprost 2.5 Ml Drops 1 Drop EACHEYE QHS 08/15/17 Reported Furosemide 80 Mg Tablet 1 Tab PO BID 08/15/17 Rx Pravastatin Sodium 20 Mg Tablet 1 Tab PO DAILY 05/12/17 Rx Simethicone 180 Mg Capsule 125 Mg PO BID 05/12/17 Reported Melatonin 3 Mg Tablet 10 Mg PO HS 05/12/17 Reported Vitamin B-12 (Cyanocobalamin (Vitamin B-12)) 1,000 Mcg Tablet 2,500 Mcg PO DAILY 05/12/17 Reported Warfarin Sodium 2 Mg Tablet 2.5 Mg PO DAILY 05/12/17 Reported Warfarin Sodium 5 Mg Tablet 1 Tab PO DAILY 05/12/17 Reported Diltiazem 24HR Cd (Diltiazem Hcl) 180 Mg Cap.er.24h 1 Cap PO BID 05/12/17 Reported Levothyroxine Sodium 112 Mcg Tablet 1 Tab PO DAILY 05/12/17 Reported Spironolactone 25 Mg Tablet 1 Tab PO DAILY 02/07/16 Reported Advair 250-50 Diskus (Fluticasone/Salmeterol) 1 Each Disk.w.dev 1 Puff IH BID 02/07/16 Reported Nystop (Nystatin) 1 Jessenia Jessenia 1 Jessenia TP BID 12/19/14 Rx Benadryl (Diphenhydramine Hcl) 25 Mg Capsule 25 Mg PO PRN PRN 12/15/14 Reported Potassium Chloride 10 Meq Tablet.er 1 Tab PO BID 12/15/14 Reported Oxybutynin Chloride Er (Oxybutynin Chloride) 5 Mg Tab.er.24 1 Tab PO BID 12/15/14 Reported Simbrinza 1%-0.2% Eye Drops (Brinzolamide/Brimonid Tart) 8 Ml Drops.susp 8 Ml EACHEYE BID 12/15/14 Reported Advanced Eye Relief Dry Eye Dp (Glycerin/Propylene Glycol) 30 Ml Drops 1 Drop OP PRN Q2HRS PRN 12/15/14 Reported Restasis (Cyclosporine) 1 Each Droperette 1 Drop EACHEYE BID 12/15/14 Reported Omeprazole 20 Mg Capsule.dr 1 Cap PO DAILY 12/15/14 Reported Metoprolol Tartrate 25 Mg Tablet 1 Tab PO BID 12/15/14 Reported Impression . 1. Mzeip-bs-zdsgnwz hypoxic respiratory failure secondary to pbkwq-lk-pyvjihz diastolic heart failure. 2. Tponh-vx-whcdfxi diastolic heart failure. 3. Underlying chronic obstructive pulmonary disease with oxygen dependence. 4. Abnormal chest x-ray with worsening interstitial edema and a small left pleural effusion. 5. Leukopenia. 6. Chronic kidney disease stage 3. 7. Coagulopathy. Plan . 1. s/p aggressive diuresis. extra IV lasix yesterday. improved 2. off BiPAP. 3. Continue bronchodilators. 4. Follow chest x-ray post-diuresis mild improvement 5. Continue DuoNebs. 6. Follow Cardiology's recommendations. 7. Monitor white cell count and INR 8. Discussed with RN 9. dysphagia THADDEUS Monson MD Sep 17, 2017 12:23
[2017-09-17] MEDS ORDERED: HALOPERIDOL LACTATE 5 MG/ML VIAL. IVP PRN (14:15)
[2017-09-17 14:24] VITALS: BP 107/55
[2017-09-17 19:00] VITALS: BP 112/46
[2017-09-17] MEDS: ATORVASTATIN CALCIUM 10 MG TABLET. PO SCH (21:44)
[2017-09-17] MEDS: LATANOPROST 0.005% OPHTH SOLUTION 2.5ML BOTTLE. OU SCH (21:46)
[2017-09-17 23:00] VITALS: BP 111/41
[2017-09-18 03:00] VITALS: BP 110/61
[2017-09-18 07:00] VITALS: BP 135/52
[2017-09-18] MEDS: IPRATRPIUM/ALBUTEROL 0.5/2.5MG 3 ML NEBU. NEB SCH ×4 (07:58→20:56)
[2017-09-18] MEDS: BUDESONIDE 0.5 MG/2 ML NEBU. NEB SCH ×2 (07:58→20:56)
[2017-09-18] MEDS: LEVOTHYROXINE 112 MCG TABLET PO SCH (08:13)
[2017-09-18] MEDS: PANTOPRAZOLE 40 MG TABLET.DR. PO SCH (08:13)
[2017-09-18 08:16] LABS: CALCIUM 10.8 mg/dL (8.5-10.1); CREATININE 1.6 mg/dL (0.6-1.0); POTASSIUM 4.3 mmol/L (3.5-5.1)
[2017-09-18 08:36] LABS: PROTHROMBIN TIME PATIENT 37.3 SEC (11.7-14.0)
--- NOTE | 2017-09-18 08:57 | PDOC ---
PULMONARY PROGRESS NOTES Subjective used bipap last night, is on home 02, 3-4 lpm, sob better, no pain, has occ cough, is tired Vitals Vital Signs Date Time Temp Pulse Resp B/P (MAP) Pulse Ox O2 Delivery O2 Flow Rate FiO2 09/18/17 08:02 96 Nasal Cannula 5.0 09/18/17 07:00 96.4 60 18 135/52 (79) 96.4 ROS: No Nausea General: Alert, No acute distress HEENT: Other (nc at perrl) Lungs: Other (few rhonchi) Cardiovascular: S1, S2 Abdomen: Soft, Non-tender Neuro Exam: Alert Extremities: No Edema Skin: Warm Labs Laboratory Tests Test 09/17/17 09:00 09/18/17 07:00 09/18/17 07:20 White Blood Count 5.0 x10^3/uL (4.0-11.0) Red Blood Count 4.22 x10^6/uL (3.50-5.40) Hemoglobin 11.7 g/dL (12.0-15.5) Hematocrit 36.2 % (36.0-47.0) Mean Corpuscular Volume 86 fL (79-100) Mean Corpuscular Hemoglobin 28 pg (25-35) Mean Corpuscular Hemoglobin Concent 32 g/dL (31-37) Red Cell Distribution Width 19.0 % (11.5-14.5) Platelet Count 82 x10^3/uL (140-400) Neutrophils (%) (Auto) 76 % (31-73) Lymphocytes (%) (Auto) 13 % (24-48) Monocytes (%) (Auto) 11 % (0-9) Eosinophils (%) (Auto) 0 % (0-3) Basophils (%) (Auto) 1 % (0-3) Neutrophils # (Auto) 3.8 x10^3uL (1.8-7.7) Lymphocytes # (Auto) 0.7 x10^3/uL (1.0-4.8) Monocytes # (Auto) 0.5 x10^3/uL (0.0-1.1) Eosinophils # (Auto) 0.0 x10^3/uL (0.0-0.7) Basophils # (Auto) 0.0 x10^3/uL (0.0-0.2) Prothrombin Time 54.6 SEC (11.7-14.0) 37.3 SEC (11.7-14.0) Prothromb Time International Ratio 6.3 (0.8-1.1) 3.9 (0.8-1.1) Sodium Level 142 mmol/L (136-145) 138 mmol/L (136-145) Potassium Level 4.1 mmol/L (3.5-5.1) 4.3 mmol/L (3.5-5.1) Chloride Level 106 mmol/L (98-107) 107 mmol/L (98-107) Carbon Dioxide Level 30 mmol/L (21-32) 25 mmol/L (21-32) Anion Gap 6 (6-14) 6 (6-14) Blood Urea Nitrogen 22 mg/dL (7-20) 20 mg/dL (7-20) Creatinine 1.6 mg/dL (0.6-1.0) 1.6 mg/dL (0.6-1.0) Estimated GFR (Cockcroft-Gault) 31.0 31.0 Glucose Level 126 mg/dL (70-99) 106 mg/dL (70-99) Calcium Level 10.5 mg/dL (8.5-10.1) 10.8 mg/dL (8.5-10.1) Laboratory Tests Test 09/17/17 09:00 09/18/17 07:00 09/18/17 07:20 White Blood Count 5.0 x10^3/uL (4.0-11.0) Red Blood Count 4.22 x10^6/uL (3.50-5.40) Hemoglobin 11.7 g/dL (12.0-15.5) Hematocrit 36.2 % (36.0-47.0) Mean Corpuscular Volume 86 fL (79-100) Mean Corpuscular Hemoglobin 28 pg (25-35) Mean Corpuscular Hemoglobin Concent 32 g/dL (31-37) Red Cell Distribution Width 19.0 % (11.5-14.5) Platelet Count 82 x10^3/uL (140-400) Neutrophils (%) (Auto) 76 % (31-73) Lymphocytes (%) (Auto) 13 % (24-48) Monocytes (%) (Auto) 11 % (0-9) Eosinophils (%) (Auto) 0 % (0-3) Basophils (%) (Auto) 1 % (0-3) Neutrophils # (Auto) 3.8 x10^3uL (1.8-7.7) Lymphocytes # (Auto) 0.7 x10^3/uL (1.0-4.8) Monocytes # (Auto) 0.5 x10^3/uL (0.0-1.1) Eosinophils # (Auto) 0.0 x10^3/uL (0.0-0.7) Basophils # (Auto) 0.0 x10^3/uL (0.0-0.2) Prothrombin Time 54.6 SEC (11.7-14.0) 37.3 SEC (11.7-14.0) Prothromb Time International Ratio 6.3 (0.8-1.1) 3.9 (0.8-1.1) Sodium Level 142 mmol/L (136-145) 138 mmol/L (136-145) Potassium Level 4.1 mmol/L (3.5-5.1) 4.3 mmol/L (3.5-5.1) Chloride Level 106 mmol/L (98-107) 107 mmol/L (98-107) Carbon Dioxide Level 30 mmol/L (21-32) 25 mmol/L (21-32) Anion Gap 6 (6-14) 6 (6-14) Blood Urea Nitrogen 22 mg/dL (7-20) 20 mg/dL (7-20) Creatinine 1.6 mg/dL (0.6-1.0) 1.6 mg/dL (0.6-1.0) Estimated GFR (Cockcroft-Gault) 31.0 31.0 Glucose Level 126 mg/dL (70-99) 106 mg/dL (70-99) Calcium Level 10.5 mg/dL (8.5-10.1) 10.8 mg/dL (8.5-10.1) Medications Active Scripts Medications Dose Route/Sig Max Daily Dose Days Date Category Benadryl (Diphenhydramine Hcl) 25 Mg Capsule 1 Cap PO QHS 09/13/17 Reported Systane 0.3-0.4% Eye Drops (Propylene Glycol/Peg 400) 15 Ml Drops 1 Drop RIGHTEYE QID 09/13/17 Reported Citalopram Hbr (Citalopram Hydrobromide) 20 Mg Tablet 1 Tab PO DAILY 09/13/17 Reported Tylenol (Acetaminophen) 325 Mg Tablet 650 Mg PO [id number] 09/13/17 Reported Culturelle (Lactobacillus Rhamnosus Gg) 1 Each Cap.sprink 1 Cap PO BID 14 08/24/17 Rx Combivent Respimat Inhal (Ipratropium/Albuterol Sulfate) 4 Gm Aer.w.adap 2 Inh IH QID 08/15/17 Reported Systane Gel (Hypromellose) 10 Gm Gel..gram. 10 Gm OP 08/15/17 Reported Latanoprost 2.5 Ml Drops 1 Drop EACHEYE QHS 08/15/17 Reported Furosemide 80 Mg Tablet 1 Tab PO BID 08/15/17 Rx Pravastatin Sodium 20 Mg Tablet 1 Tab PO DAILY 05/12/17 Rx Simethicone 180 Mg Capsule 125 Mg PO BID 05/12/17 Reported Melatonin 3 Mg Tablet 10 Mg PO HS 05/12/17 Reported Vitamin B-12 (Cyanocobalamin (Vitamin B-12)) 1,000 Mcg Tablet 2,500 Mcg PO DAILY 05/12/17 Reported Warfarin Sodium 2 Mg Tablet 2.5 Mg PO DAILY 05/12/17 Reported Warfarin Sodium 5 Mg Tablet 1 Tab PO DAILY 05/12/17 Reported Diltiazem 24HR Cd (Diltiazem Hcl) 180 Mg Cap.er.24h 1 Cap PO BID 05/12/17 Reported Levothyroxine Sodium 112 Mcg Tablet 1 Tab PO DAILY 05/12/17 Reported Spironolactone 25 Mg Tablet 1 Tab PO DAILY 02/07/16 Reported Advair 250-50 Diskus (Fluticasone/Salmeterol) 1 Each Disk.w.dev 1 Puff IH BID 02/07/16 Reported Nystop (Nystatin) 1 Jessenia Jessenia 1 Jessenia TP BID 12/19/14 Rx Benadryl (Diphenhydramine Hcl) 25 Mg Capsule 25 Mg PO PRN PRN 12/15/14 Reported Potassium Chloride 10 Meq Tablet.er 1 Tab PO BID 12/15/14 Reported Oxybutynin Chloride Er (Oxybutynin Chloride) 5 Mg Tab.er.24 1 Tab PO BID 12/15/14 Reported Simbrinza 1%-0.2% Eye Drops (Brinzolamide/Brimonid Tart) 8 Ml Drops.susp 8 Ml EACHEYE BID 12/15/14 Reported Advanced Eye Relief Dry Eye Dp (Glycerin/Propylene Glycol) 30 Ml Drops 1 Drop OP PRN Q2HRS PRN 12/15/14 Reported Restasis (Cyclosporine) 1 Each Droperette 1 Drop EACHEYE BID 12/15/14 Reported Omeprazole 20 Mg Capsule.dr 1 Cap PO DAILY 12/15/14 Reported Metoprolol Tartrate 25 Mg Tablet 1 Tab PO BID 12/15/14 Reported Impression . 1. Werxg-rz-phenesb hypoxic respiratory failure secondary to dijtm-er-tawqrdn diastolic heart failure. 2. Xlnui-bx-tdivdzm diastolic heart failure. 3. Underlying chronic obstructive pulmonary disease with oxygen dependence. 4. Abnormal chest x-ray with worsening interstitial edema and a small left pleural effusion. 5. Leukopenia. 6. Chronic kidney disease stage 3. 7. Coagulopathy. Plan . 1. keep I<O, lasix, monitor k, cr 2. BiPAP prn. setting reviewed. 3. Continue bronchodilators. 4. Follow chest x-ray post-diuresis mild improvement 5. Continue DuoNebs. 6. Follow Cardiology's recommendations. 7. Monitor white cell count and INR, down to 3.9, monitor for bleeding 8. dysphagia diet 9. protonix for stress ulcer prophylaxis Discussed with RN, pt SIVA YAP MD Sep 18, 2017 08:57
--- NOTE | 2017-09-18 09:19 | PDOC ---
PROGRESS NOTES Subjective Subjective Patient without new complaints. Patient eating breakfast with thickened liquids and coughing frequently. Signs of dysphagia present. O2 sats over 95 with 5 L oxygen. INR down to 3.9. Objective Objective Vital Signs Date Time Temp Pulse Resp B/P (MAP) Pulse Ox O2 Delivery O2 Flow Rate FiO2 09/18/17 08:02 96 Nasal Cannula 5.0 09/18/17 07:00 96.4 60 18 135/52 (79) 96.4 Intake and Output 09/18/17 07:00 Intake Total 1310 ml Output Total 900 ml Balance 410 ml Intake Oral 1310 ml Output Urine Total 900 ml # Voids 2 Physical Exam Abdomen: Normal bowel sounds Extremities: No edema, Other (trophic changes with mild cyanosis pulses present ) Lungs: Clear to auscultation, Other (distant) Assessment Assessment 1. Acute on chronic respiratory failure 2. acute on chronic diastolic congestive heart failure. 3. dysphagia coughing with thick liquids 4. COPD 5. chronic afib 6. CKD III creatinine 1.6 chronically 7. Valvular heart disease status post AVR repair 8. SSS with Permanent pacemaker 9.Coumadin toxicity INR 3.9 10. Debilitation with mobility deficit Plan Plan of Care Continue supportive care. Receiving PT OT modalities. Monitor INR Bi-Pap PRN and AT night Comment Review of Relevant I have reviewed the following items muna (where applicable) has been applied. Labs Laboratory Tests Test 09/17/17 09:00 09/18/17 07:00 09/18/17 07:20 White Blood Count 5.0 x10^3/uL (4.0-11.0) Red Blood Count 4.22 x10^6/uL (3.50-5.40) Hemoglobin 11.7 g/dL (12.0-15.5) Hematocrit 36.2 % (36.0-47.0) Mean Corpuscular Volume 86 fL (79-100) Mean Corpuscular Hemoglobin 28 pg (25-35) Mean Corpuscular Hemoglobin Concent 32 g/dL (31-37) Red Cell Distribution Width 19.0 % (11.5-14.5) Platelet Count 82 x10^3/uL (140-400) Neutrophils (%) (Auto) 76 % (31-73) Lymphocytes (%) (Auto) 13 % (24-48) Monocytes (%) (Auto) 11 % (0-9) Eosinophils (%) (Auto) 0 % (0-3) Basophils (%) (Auto) 1 % (0-3) Neutrophils # (Auto) 3.8 x10^3uL (1.8-7.7) Lymphocytes # (Auto) 0.7 x10^3/uL (1.0-4.8) Monocytes # (Auto) 0.5 x10^3/uL (0.0-1.1) Eosinophils # (Auto) 0.0 x10^3/uL (0.0-0.7) Basophils # (Auto) 0.0 x10^3/uL (0.0-0.2) Prothrombin Time 54.6 SEC (11.7-14.0) 37.3 SEC (11.7-14.0) Prothromb Time International Ratio 6.3 (0.8-1.1) 3.9 (0.8-1.1) Sodium Level 142 mmol/L (136-145) 138 mmol/L (136-145) Potassium Level 4.1 mmol/L (3.5-5.1) 4.3 mmol/L (3.5-5.1) Chloride Level 106 mmol/L (98-107) 107 mmol/L (98-107) Carbon Dioxide Level 30 mmol/L (21-32) 25 mmol/L (21-32) Anion Gap 6 (6-14) 6 (6-14) Blood Urea Nitrogen 22 mg/dL (7-20) 20 mg/dL (7-20) Creatinine 1.6 mg/dL (0.6-1.0) 1.6 mg/dL (0.6-1.0) Estimated GFR (Cockcroft-Gault) 31.0 31.0 Glucose Level 126 mg/dL (70-99) 106 mg/dL (70-99) Calcium Level 10.5 mg/dL (8.5-10.1) 10.8 mg/dL (8.5-10.1) Laboratory Tests Test 09/18/17 07:00 09/18/17 07:20 Prothrombin Time 37.3 SEC (11.7-14.0) Prothromb Time International Ratio 3.9 (0.8-1.1) Sodium Level 138 mmol/L (136-145) Potassium Level 4.3 mmol/L (3.5-5.1) Chloride Level 107 mmol/L (98-107) Carbon Dioxide Level 25 mmol/L (21-32) Anion Gap 6 (6-14) Blood Urea Nitrogen 20 mg/dL (7-20) Creatinine 1.6 mg/dL (0.6-1.0) Estimated GFR (Cockcroft-Gault) 31.0 Glucose Level 106 mg/dL (70-99) Calcium Level 10.8 mg/dL (8.5-10.1) Medications Current Medications Furosemide (Lasix) 40 mg 1X ONCE IVP Last administered on 09/13/17 17:21; Start 09/13/17 at 17:00; Stop 09/13/17 at 17:01; Status DC Ondansetron HCl (Zofran) 4 mg PRN Q8HRS PRN IV NAUSEA/VOMITING; Start 09/13/17 at 16:30; Stop 09/14/17 at 16:29; Status DC Acetaminophen (Tylenol) 650 mg PRN Q4HRS PRN PO FEVER; Start 09/13/17 at 16:30; Stop 09/13/17 at 23:31; Status DC Albuterol/ Ipratropium (Duoneb) 3 ml RTQID NEB Last administered on 09/18/17at 07:58; Start 09/13/17 at 20:00 Cyclosporine (Restasis) 1 drop BID OU Last administered on 09/17/17 21:43; Start 09/13/17 at 22:00 Diphenhydramine HCl (Benadryl) 25 mg PRN QHS PRN PO INSOMNIA 1ST CHOICE Last administered on 09/17/17 21:44; Start 09/13/17 at 21:45 Lactobacillus Rhamnosus (Culturelle) 1 cap BID PO Last administered on 21:44; Start 09/13/17 at 22:00 Metoprolol Tartrate (Lopressor) 25 mg BID PO Last administered on 09/17/17 21: 45; Start 09/13/17 at 22:00 Nystatin (Nystop) 1 jessenia BID TP Last administered on 09/17/17 21:57; Start 09/13 at 22:00 Potassium Chloride (Klor-Con) 10 meq BID PO Last administered on 09/17/17 21: 57; Start 09/13/17 at 22:00 Dorzolamide HCl (Trusopt) 1 drop BID OU Last administered on 09/17/17 21:46; Start 09/13/17 at 22:00 Budesonide (Pulmicort) 0.5 mg RTBID NEB Last administered on 09/18/17 07:58; Start 09/13/17 at 22:00 Artificial Tears (Artificial Tears) 1 drop PRN Q2HR PRN OU DRY EYE; Start at 22:00 Latanoprost (Xalatan) 1 drop QHS OU Last administered on 09/17/17 21:46; Start 09/13/17 at 22:00 Oxybutynin Chloride (Ditropan) 5 mg BID PO Last administered on 09/17/17 21:44 ; Start 09/13/17 at 22:00 Artificial Tears (Artificial Tears) 1 drop QID OD Last administered on 21:44; Start 09/14/17 at 09:00 Simethicone (Gas-X) 80 mg BID PO Last administered on 09/17/17 21:45; Start at 22:00 Brimonidine Tartrate (Alphagan) 1 drop BID OU Last administered on 09/17/17 21 :49; Start 09/13/17 at 22:00 Acetaminophen (Tylenol) 650 mg PRN Q6HRS PRN PO MILD PAIN / TEMP Last administered on 09/16/17 11:54; Start 09/13/17 at 23:30 Citalopram Hydrobromide (CeleXA) 20 mg DAILY PO Last administered on 09/17/17 09:02; Start 09/14/17 at 09:00 Cyanocobalamin (Vitamin B-12) 2,500 mcg DAILY PO Last administered on 09:03; Start 09/14/17 at 09:00 Furosemide (Lasix) 80 mg BID92 PO Last administered on 09/15/17 13:23; Start at 09:00; Stop 09/16/17 at 08:56; Status DC Levothyroxine Sodium (Synthroid) 112 mcg DAILY07 PO Last administered on 08:13; Start 09/14/17 at 09:00 Diltiazem HCl (Cardizem 24hr Cd) 180 mg BID PO Last administered on 09/17/17at 21:46; Start 09/14/17 at 10:00 Non-Formulary Medication (Ipratropium/ Albuterol Sulfate (Combivent Respimat Inhal)) 2 inh QID IH ; Start 09/14/17 at 09:00; Stop 09/14/17 at 09:10; Status DC Non-Formulary Medication (Melatonin ) 10 mg HS PO ; Start 09/14/17 at 21:00; Stop 09/14/17 at 21:00; Status DC Pantoprazole Sodium (Protonix) 40 mg DAILYAC PO Last administered on 09/18/17at 08:13; Start 09/14/17 at 09:00 Atorvastatin Calcium (Lipitor) 5 mg QHS PO Last administered on 09/17/17at 21:44 ; Start 09/14/17 at 21:00 Spironolactone (Aldactone) 25 mg DAILY PO Last administered on 09/17/17at 09:02 ; Start 09/14/17 at 10:00 Albuterol/ Ipratropium (Duoneb) 3 ml RTQID NEB ; Start 09/14/17 at 12:00; Stop at 12:00; Status DC Furosemide (Lasix) 60 mg 1X ONCE IVP Last administered on 09/14/17at 15:34; Start 09/14/17 at 15:45; Stop 09/14/17 at 15:46; Status DC Haloperidol (Haldol) 2 mg PRN Q2HR PRN PO AGITATION; Start 09/15/17 at 12:30 Haloperidol Lactate (Haldol Inj) 2 mg PRN Q2HR PRN IVP AGITATION Last administered on 09/16/17at 02:32; Start 09/15/17 at 13:15; Stop 09/17/17 at 14:13; Status DC Lorazepam (Ativan) 0.5 mg PRN Q4HRS PRN IV ANXIETY/AGITATION (1st Choice); Start 09/16/17 at 08:45 Furosemide (Lasix) 80 mg BID92 IVP Last administered on 09/17/17at 13:53; Start 09/16/17 at 09:00 Furosemide (Lasix) 40 mg 1X ONCE IVP Last administered on 09/16/17at 11:54; Start 09/16/17 at 11:45; Stop 09/16/17 at 11:46; Status DC Barium Sulfate (Varibar Thin Liquid Apple) 148 gm 1X ONCE PO Last administered on 09/16/17at 14:15; Start 09/16/17 at 14:15; Stop 09/16/17 at 14:16; Status DC Phytonadione (Vitamin K Ampule) 5 mg 1X ONCE SQ Last administered on at 13:53; Start 09/17/17 at 10:00; Stop 09/17/17 at 10:01; Status DC Haloperidol Lactate (Haldol Inj) 2 mg PRN Q2HRS PRN IVP AGITATION (2nd Choice) ; Start 09/17/17 at 14:15 Active Scripts Active Culturelle (Lactobacillus Rhamnosus Gg) 1 Each Cap.sprink 1 Cap PO BID 14 Days Furosemide 80 Mg Tablet 1 Tab PO BID Pravastatin Sodium 20 Mg Tablet 1 Tab PO DAILY Nystop (Nystatin) 1 Jessenia Jessenia 1 Jessenia TP BID Reported Benadryl (Diphenhydramine Hcl) 25 Mg Capsule 1 Cap PO QHS Systane 0.3-0.4% Eye Drops (Propylene Glycol/Peg 400) 15 Ml Drops 1 Drop RIGHTEYE QID Citalopram Hbr (Citalopram Hydrobromide) 20 Mg Tablet 1 Tab PO DAILY Tylenol (Acetaminophen) 325 Mg Tablet 650 Mg PO [id number] Combivent Respimat Inhal (Ipratropium/Albuterol Sulfate) 4 Gm Aer.w.adap 2 Inh IH QID Systane Gel (Hypromellose) 10 Gm Gel..gram. 10 Gm OP Latanoprost 2.5 Ml Drops 1 Drop EACHEYE QHS Simethicone 180 Mg Capsule 125 Mg PO BID Melatonin 3 Mg Tablet 10 Mg PO HS Vitamin B-12 (Cyanocobalamin (Vitamin B-12)) 1,000 Mcg Tablet 2,500 Mcg PO DAILY Warfarin Sodium 2 Mg Tablet 2.5 Mg PO DAILY Warfarin Sodium 5 Mg Tablet 1 Tab PO DAILY Diltiazem 24HR Cd (Diltiazem Hcl) 180 Mg Cap.er.24h 1 Cap PO BID Levothyroxine Sodium 112 Mcg Tablet 1 Tab PO DAILY Spironolactone 25 Mg Tablet 1 Tab PO DAILY Advair 250-50 Diskus (Fluticasone/Salmeterol) 1 Each Disk.w.dev 1 Puff IH BID Benadryl (Diphenhydramine Hcl) 25 Mg Capsule 25 Mg PO PRN PRN Potassium Chloride 10 Meq Tablet.er 1 Tab PO BID Oxybutynin Chloride Er (Oxybutynin Chloride) 5 Mg Tab.er.24 1 Tab PO BID Simbrinza 1%-0.2% Eye Drops (Brinzolamide/Brimonid Tart) 8 Ml Drops.susp 8 Ml EACHEYE BID Advanced Eye Relief Dry Eye Dp (Glycerin/Propylene Glycol) 30 Ml Drops 1 Drop OP PRN Q2HRS PRN Restasis (Cyclosporine) 1 Each Droperette 1 Drop EACHEYE BID Omeprazole 20 Mg Capsule.dr 1 Cap PO DAILY Metoprolol Tartrate 25 Mg Tablet 1 Tab PO BID Vitals/I & O Vital Sign - Last 24 Hours 09/17/17 09/17/17 09/17/17 09/17/17 11:00 11:58 14:24 15:33 Temp 98.5 98.3 98.5 98.3 Pulse 66 65 Resp 18 20 B/P (MAP) 123/62 (82) 107/55 (72) Pulse Ox 90 92 93 O2 Delivery BIPAP/6L Nasal Cannula bipap/6l Nasal Cannula O2 Flow Rate 6.0 6.0 09/17/17 09/17/17 09/17/17 09/17/17 19:00 19:43 20:45 21:45 Temp 98.6 98.6 Pulse 89 89 Resp 20 B/P (MAP) 112/46 (68) 112/46 Pulse Ox 91 92 O2 Delivery Nasal Cannula Nasal Cannula O2 Flow Rate 6.0 6.0 09/17/17 09/17/17 09/18/17 09/18/17 21:46 23:00 00:23 01:36 Temp 98.4 98.4 Pulse 89 102 Resp 20 B/P (MAP) 112/46 111/41 (64) Pulse Ox 90 O2 Delivery BiPAP/CPAP BiPAP/CPAP 09/18/17 09/18/17 09/18/17 09/18/17 03:00 03:45 07:00 07:55 Temp 97.8 96.4 97.8 96.4 Pulse 64 60 Resp 22 18 B/P (MAP) 110/61 (77) 135/52 (79) Pulse Ox 100 100 O2 Delivery BiPAP/CPAP BiPAP/CPAP BiPAP/CPAP 09/18/17 09/18/17 08:01 08:02 Pulse Ox 96 96 O2 Delivery Nasal Cannula Nasal Cannula O2 Flow Rate 5.0 5.0 Intake and Output 09/17/17 09/17/17 09/18/17 15:00 23:00 07:00 Intake Total 150 ml 800 ml 360 ml Output Total 650 ml 250 ml Balance 150 ml 150 ml 110 ml YOLI EVANS MD Sep 18, 2017 09:18
--- NOTE | 2017-09-18 10:45 | RAD ---
Portable chest, 09/18/2017: HISTORY: Cough Comparison is made to a study from 09/15/2017. The left-sided transvenous pacemaker is unchanged. The heart is enlarged. Interstitial type opacities in the lower chest appear to have worsened slightly. There is ongoing loss of definition left hemidiaphragm probably due to a combination of pleural fluid and infiltrate. Allowing for differences in patient positioning this is probably similar to the previous exam. IMPRESSION: Slight interval worsening of the congestive heart failure with interstitial pulmonary edema and pleural fluid. Electronically signed by: Devon Obregon MD (09/18/2017 10:41 AM) [facility]
[2017-09-18] MEDS: NYSTATIN TOPICAL POWDER 15GM BOTTLE. TP SCH ×2 (10:50→20:05)
[2017-09-18] MEDS: DORZOLAMIDE 2% OPHTH SOLUTION 10ML BOTTLE. OU SCH ×2 (10:51→20:06)
[2017-09-18] MEDS: FUROSEMIDE 100 MG/10 ML VIAL. IVP SCH ×2 (10:51→15:36)
[2017-09-18] MEDS: BRIMONIDINE 0.2% OPHTH SOLUTION 5ML BOTTLE. OU SCH ×2 (10:51→20:06)
[2017-09-18] MEDS: CYANOCOBALAMIN (VITAMIN B-12) 1,000 MCG TABLET. PO SCH (10:52)
[2017-09-18] MEDS: POLYVINYL ALCOHOL 1.4% OPHTH SOLUTION 15ML BOTTLE. OD SCH ×4 (10:52→20:06)
[2017-09-18] MEDS: cycloSPORINE 0.05% OPTH 1 DROP DROPERETTE OU SCH ×2 (10:52→20:24)
[2017-09-18] MEDS: SPIRONOLACTONE 25 MG TABLET PO SCH (10:53)
[2017-09-18] MEDS: CITALOPRAM 20 MG TABLET. PO SCH (10:53)
[2017-09-18] MEDS: OXYBUTYNIN CHLORIDE 5 MG TABLET PO SCH ×2 (10:53→20:04)
[2017-09-18] MEDS: LACTOBACILLUS RHAMNOSUS GG 1 CAPSULE. PO SCH ×2 (10:53→20:04)
[2017-09-18] MEDS: SIMETHICONE 80 MG TAB.CHEW PO SCH ×2 (10:53→20:05)
[2017-09-18] MEDS: POTASSIUM CHLORIDE 10 MEQ TABLET.ER. PO SCH ×2 (10:54→20:05)
[2017-09-18] MEDS: METOPROLOL TART IMMED RELEASE 25 MG TABLET. PO SCH ×2 (10:59→20:05)
[2017-09-18 11:00] VITALS: BP 105/48
[2017-09-18 15:00] VITALS: BP 111/49
[2017-09-18 19:00] VITALS: BP 117/62
[2017-09-18] MEDS: ATORVASTATIN CALCIUM 10 MG TABLET. PO SCH (20:04)
[2017-09-18] MEDS: LATANOPROST 0.005% OPHTH SOLUTION 2.5ML BOTTLE. OU SCH (20:06)
[2017-09-18 22:48] VITALS: BP 111/47
[2017-09-19 03:00] VITALS: BP 123/55
[2017-09-19 06:09] LABS: PROTHROMBIN TIME PATIENT 24.7 SEC (11.7-14.0)
[2017-09-19 07:00] VITALS: BP 116/52
[2017-09-19] MEDS: IPRATRPIUM/ALBUTEROL 0.5/2.5MG 3 ML NEBU. NEB SCH ×4 (08:24→18:20)
[2017-09-19] MEDS: BUDESONIDE 0.5 MG/2 ML NEBU. NEB SCH ×2 (08:24→18:19)
--- NOTE | 2017-09-19 08:52 | PDOC ---
PULMONARY PROGRESS NOTES Subjective used bipap last night, is on home 02, 3-4 lpm, has more sob, no pain, has occ cough, is tired Vitals Vital Signs Date Time Temp Pulse Resp B/P (MAP) Pulse Ox O2 Delivery O2 Flow Rate FiO2 09/19/17 08:33 99 Nasal Cannula 5.0 09/19/17 03:00 98.2 60 18 123/55 (77) 98.2 ROS: No Nausea General: Alert, No acute distress HEENT: Other (nc at perrl) Lungs: Other (few rhonchi) Cardiovascular: S1, S2 Abdomen: Soft, Non-tender Neuro Exam: Alert Extremities: No Edema Skin: Warm Labs Laboratory Tests Test 09/17/17 09:00 09/18/17 07:00 09/18/17 07:20 09/19/17 05:20 White Blood Count 5.0 x10^3/uL (4.0-11.0) Red Blood Count 4.22 x10^6/uL (3.50-5.40) Hemoglobin 11.7 g/dL (12.0-15.5) Hematocrit 36.2 % (36.0-47.0) Mean Corpuscular Volume 86 fL (79-100) Mean Corpuscular Hemoglobin 28 pg (25-35) Mean Corpuscular Hemoglobin Concent 32 g/dL (31-37) Red Cell Distribution Width 19.0 % (11.5-14.5) Platelet Count 82 x10^3/uL (140-400) Neutrophils (%) (Auto) 76 % (31-73) Lymphocytes (%) (Auto) 13 % (24-48) Monocytes (%) (Auto) 11 % (0-9) Eosinophils (%) (Auto) 0 % (0-3) Basophils (%) (Auto) 1 % (0-3) Neutrophils # (Auto) 3.8 x10^3uL (1.8-7.7) Lymphocytes # (Auto) 0.7 x10^3/uL (1.0-4.8) Monocytes # (Auto) 0.5 x10^3/uL (0.0-1.1) Eosinophils # (Auto) 0.0 x10^3/uL (0.0-0.7) Basophils # (Auto) 0.0 x10^3/uL (0.0-0.2) Prothrombin Time 54.6 SEC (11.7-14.0) 37.3 SEC (11.7-14.0) 24.7 SEC (11.7-14.0) Prothromb Time International Ratio 6.3 (0.8-1.1) 3.9 (0.8-1.1) 2.3 (0.8-1.1) Sodium Level 142 mmol/L (136-145) 138 mmol/L (136-145) Potassium Level 4.1 mmol/L (3.5-5.1) 4.3 mmol/L (3.5-5.1) Chloride Level 106 mmol/L (98-107) 107 mmol/L (98-107) Carbon Dioxide Level 30 mmol/L (21-32) 25 mmol/L (21-32) Anion Gap 6 (6-14) 6 (6-14) Blood Urea Nitrogen 22 mg/dL (7-20) 20 mg/dL (7-20) Creatinine 1.6 mg/dL (0.6-1.0) 1.6 mg/dL (0.6-1.0) Estimated GFR (Cockcroft-Gault) 31.0 31.0 Glucose Level 126 mg/dL (70-99) 106 mg/dL (70-99) Calcium Level 10.5 mg/dL (8.5-10.1) 10.8 mg/dL (8.5-10.1) Laboratory Tests Test 09/19/17 05:20 Prothrombin Time 24.7 SEC (11.7-14.0) Prothromb Time International Ratio 2.3 (0.8-1.1) Medications Active Scripts Medications Dose Route/Sig Max Daily Dose Days Date Category Benadryl (Diphenhydramine Hcl) 25 Mg Capsule 1 Cap PO QHS 09/13/17 Reported Systane 0.3-0.4% Eye Drops (Propylene Glycol/Peg 400) 15 Ml Drops 1 Drop RIGHTEYE QID 09/13/17 Reported Citalopram Hbr (Citalopram Hydrobromide) 20 Mg Tablet 1 Tab PO DAILY 09/13/17 Reported Tylenol (Acetaminophen) 325 Mg Tablet 650 Mg PO [id number] 09/13/17 Reported Culturelle (Lactobacillus Rhamnosus Gg) 1 Each Cap.sprink 1 Cap PO BID 14 08/24/17 Rx Combivent Respimat Inhal (Ipratropium/Albuterol Sulfate) 4 Gm Aer.w.adap 2 Inh IH QID 08/15/17 Reported Systane Gel (Hypromellose) 10 Gm Gel..gram. 10 Gm OP 08/15/17 Reported Latanoprost 2.5 Ml Drops 1 Drop EACHEYE QHS 08/15/17 Reported Furosemide 80 Mg Tablet 1 Tab PO BID 08/15/17 Rx Pravastatin Sodium 20 Mg Tablet 1 Tab PO DAILY 05/12/17 Rx Simethicone 180 Mg Capsule 125 Mg PO BID 05/12/17 Reported Melatonin 3 Mg Tablet 10 Mg PO HS 05/12/17 Reported Vitamin B-12 (Cyanocobalamin (Vitamin B-12)) 1,000 Mcg Tablet 2,500 Mcg PO DAILY 05/12/17 Reported Warfarin Sodium 2 Mg Tablet 2.5 Mg PO DAILY 05/12/17 Reported Warfarin Sodium 5 Mg Tablet 1 Tab PO DAILY 05/12/17 Reported Diltiazem 24HR Cd (Diltiazem Hcl) 180 Mg Cap.er.24h 1 Cap PO BID 05/12/17 Reported Levothyroxine Sodium 112 Mcg Tablet 1 Tab PO DAILY 05/12/17 Reported Spironolactone 25 Mg Tablet 1 Tab PO DAILY 02/07/16 Reported Advair 250-50 Diskus (Fluticasone/Salmeterol) 1 Each Disk.w.dev 1 Puff IH BID 02/07/16 Reported Nystop (Nystatin) 1 Jessenia Jessenia 1 Jessenia TP BID 12/19/14 Rx Benadryl (Diphenhydramine Hcl) 25 Mg Capsule 25 Mg PO PRN PRN 12/15/14 Reported Potassium Chloride 10 Meq Tablet.er 1 Tab PO BID 12/15/14 Reported Oxybutynin Chloride Er (Oxybutynin Chloride) 5 Mg Tab.er.24 1 Tab PO BID 12/15/14 Reported Simbrinza 1%-0.2% Eye Drops (Brinzolamide/Brimonid Tart) 8 Ml Drops.susp 8 Ml EACHEYE BID 12/15/14 Reported Advanced Eye Relief Dry Eye Dp (Glycerin/Propylene Glycol) 30 Ml Drops 1 Drop OP PRN Q2HRS PRN 12/15/14 Reported Restasis (Cyclosporine) 1 Each Droperette 1 Drop EACHEYE BID 12/15/14 Reported Omeprazole 20 Mg Capsule. 1 Cap PO DAILY 12/15/14 Reported Metoprolol Tartrate 25 Mg Tablet 1 Tab PO BID 12/15/14 Reported Impression . 1. [id number] hypoxic respiratory failure secondary to [id number] diastolic heart failure. has more sob today 2. [id number] diastolic heart failure. 3. Underlying chronic obstructive pulmonary disease with oxygen dependence. 4. Abnormal chest x-ray with worsening interstitial edema and a small left pleural effusion. 5. Leukopenia. 6. Chronic kidney disease stage 3. 7. Coagulopathy. Plan . 1. keep I<O, lasix, monitor k, cr, give her scheduled dose now 2. BiPAP prn during day, cont at night. setting reviewed. 3. increase bronchodilators to q4hrs. 4. chest x-ray reviewed 5. Continue DuoNebs. 6. Follow Cardiology's recommendations. 7. Monitor white cell count and INR, down to 2.3, monitor for bleeding 8. dysphagia diet 9. protonix for stress ulcer prophylaxis Discussed with RN, pt SIVA YAP MD Sep 19, 2017 08:52
[2017-09-19] MEDS: SPIRONOLACTONE 25 MG TABLET PO SCH (09:04)
[2017-09-19] MEDS: CYANOCOBALAMIN (VITAMIN B-12) 1,000 MCG TABLET. PO SCH (09:04)
[2017-09-19] MEDS: SIMETHICONE 80 MG TAB.CHEW PO SCH ×2 (09:04→20:58)
[2017-09-19] MEDS: OXYBUTYNIN CHLORIDE 5 MG TABLET PO SCH ×2 (09:05→20:58)
[2017-09-19] MEDS: LEVOTHYROXINE 112 MCG TABLET PO SCH (09:05)
[2017-09-19] MEDS: POTASSIUM CHLORIDE 10 MEQ TABLET.ER. PO SCH ×2 (09:05→20:59)
[2017-09-19] MEDS: CITALOPRAM 20 MG TABLET. PO SCH (09:05)
[2017-09-19] MEDS: PANTOPRAZOLE 40 MG TABLET.DR. PO SCH (09:05)
[2017-09-19] MEDS: FUROSEMIDE 100 MG/10 ML VIAL. IVP SCH ×2 (09:05→14:01)
[2017-09-19] MEDS: POLYVINYL ALCOHOL 1.4% OPHTH SOLUTION 15ML BOTTLE. OD SCH ×4 (09:07→20:57)
[2017-09-19] MEDS: BRIMONIDINE 0.2% OPHTH SOLUTION 5ML BOTTLE. OU SCH ×2 (09:07→20:57)
[2017-09-19] MEDS: NYSTATIN TOPICAL POWDER 15GM BOTTLE. TP SCH ×2 (09:07→21:00)
[2017-09-19] MEDS: DORZOLAMIDE 2% OPHTH SOLUTION 10ML BOTTLE. OU SCH ×2 (09:07→20:57)
[2017-09-19] MEDS: METOPROLOL TART IMMED RELEASE 25 MG TABLET. PO SCH ×2 (09:10→20:58)
[2017-09-19] MEDS: cycloSPORINE 0.05% OPTH 1 DROP DROPERETTE OU SCH ×2 (09:10→20:57)
--- NOTE | 2017-09-19 10:17 | PDOC ---
PROGRESS NOTES Subjective Subjective Patient without complaint today. Good diuresis yesterday. CXR with increased edema noted. Objective Objective Vital Signs Date Time Temp Pulse Resp B/P (MAP) Pulse Ox O2 Delivery O2 Flow Rate FiO2 09/19/17 09:10 60 123/55 09/19/17 08:33 99 Nasal Cannula 5.0 09/19/17 03:00 98.2 18 98.2 Intake and Output 09/19/17 07:00 Intake Total 320 ml Output Total 1750 ml Balance -1430 ml Intake Oral 320 ml Output Urine Total 1750 ml # Bowel Movements 1 Physical Exam Abdomen: Normal bowel sounds Heart: Other (irregular) Extremities: No edema General: Alert Lungs: Other (distant) Assessment Assessment 1. Acute on chronic respiratory failure 2. acute on chronic diastolic congestive heart failure. 3. dysphagia coughing with thick liquids 4. COPD 5. chronic afib 6. CKD III creatinine 1.6 chronically 7. Valvular heart disease status post AVR repair 8. SSS with Permanent pacemaker 9.Coumadin toxicity INR 3.9 10. Debilitation with mobility deficit Plan Plan of Care Add Zaroxolyn and monitor Cr. Continue supportive care. Receiving PT OT modalities. Monitor INR Bi-Pap PRN and AT night Comment Review of Relevant I have reviewed the following items muna (where applicable) has been applied. Labs Laboratory Tests Test 09/18/17 07:00 09/18/17 07:20 09/19/17 05:20 Prothrombin Time 37.3 SEC (11.7-14.0) 24.7 SEC (11.7-14.0) Prothromb Time International Ratio 3.9 (0.8-1.1) 2.3 (0.8-1.1) Sodium Level 138 mmol/L (136-145) Potassium Level 4.3 mmol/L (3.5-5.1) Chloride Level 107 mmol/L (98-107) Carbon Dioxide Level 25 mmol/L (21-32) Anion Gap 6 (6-14) Blood Urea Nitrogen 20 mg/dL (7-20) Creatinine 1.6 mg/dL (0.6-1.0) Estimated GFR (Cockcroft-Gault) 31.0 Glucose Level 106 mg/dL (70-99) Calcium Level 10.8 mg/dL (8.5-10.1) Laboratory Tests Test 09/19/17 05:20 Prothrombin Time 24.7 SEC (11.7-14.0) Prothromb Time International Ratio 2.3 (0.8-1.1) Medications Current Medications Furosemide (Lasix) 40 mg 1X ONCE IVP Last administered on 09/13/17 17:21; Start 09/13/17 at 17:00; Stop 09/13/17 at 17:01; Status DC Ondansetron HCl (Zofran) 4 mg PRN Q8HRS PRN IV NAUSEA/VOMITING; Start 09/13/17 at 16:30; Stop 09/14/17 at 16:29; Status DC Acetaminophen (Tylenol) 650 mg PRN Q4HRS PRN PO FEVER; Start 09/13/17 at 16:30; Stop 09/13/17 at 23:31; Status DC Albuterol/ Ipratropium (Duoneb) 3 ml RTQID NEB Last administered on 09/19/17at 08:24; Start 09/13/17 at 20:00; Stop 09/19/17 at 08:52; Status DC Cyclosporine (Restasis) 1 drop BID OU Last administered on 09/19/17at 09:10; Start 09/13/17 at 22:00 Diphenhydramine HCl (Benadryl) 25 mg PRN QHS PRN PO INSOMNIA 1ST CHOICE Last administered on 09/17/17at 21:44; Start 09/13/17 at 21:45 Lactobacillus Rhamnosus (Culturelle) 1 cap BID PO Last administered on at 20:04; Start 09/13/17 at 22:00 Metoprolol Tartrate (Lopressor) 25 mg BID PO Last administered on 09/19/17at 09: 10; Start 09/13/17 at 22:00 Nystatin (Nystop) 1 jessenia BID TP Last administered on 09/19/17 09:07; Start 09/13 at 22:00 Potassium Chloride (Klor-Con) 10 meq BID PO Last administered on 09/19/17at 09: 05; Start 09/13/17 at 22:00 Dorzolamide HCl (Trusopt) 1 drop BID OU Last administered on 09/19/17 09:07; Start 09/13/17 at 22:00 Budesonide (Pulmicort) 0.5 mg RTBID NEB Last administered on 09/19/17 08:24; Start 09/13/17 at 22:00 Artificial Tears (Artificial Tears) 1 drop PRN Q2HR PRN OU DRY EYE; Start at 22:00 Latanoprost (Xalatan) 1 drop QHS OU Last administered on 09/18/17 20:06; Start 09/13/17 at 22:00 Oxybutynin Chloride (Ditropan) 5 mg BID PO Last administered on 09/19/17 09:05 ; Start 09/13/17 at 22:00 Artificial Tears (Artificial Tears) 1 drop QID OD Last administered on 09:07; Start 09/14/17 at 09:00 Simethicone (Gas-X) 80 mg BID PO Last administered on 09/19/17 09:04; Start at 22:00 Brimonidine Tartrate (Alphagan) 1 drop BID OU Last administered on 09/19/17 09 :07; Start 09/13/17 at 22:00 Acetaminophen (Tylenol) 650 mg PRN Q6HRS PRN PO MILD PAIN / TEMP Last administered on 09/16/17 11:54; Start 09/13/17 at 23:30 Citalopram Hydrobromide (CeleXA) 20 mg DAILY PO Last administered on 09/19/17 09:05; Start 09/14/17 at 09:00 Cyanocobalamin (Vitamin B-12) 2,500 mcg DAILY PO Last administered on 09:04; Start 09/14/17 at 09:00 Furosemide (Lasix) 80 mg BID92 PO Last administered on 09/15/17 13:23; Start at 09:00; Stop 09/16/17 at 08:56; Status DC Levothyroxine Sodium (Synthroid) 112 mcg DAILY07 PO Last administered on 09:05; Start 09/14/17 at 09:00 Diltiazem HCl (Cardizem 24hr Cd) 180 mg BID PO Last administered on 09/19/17 09:06; Start 09/14/17 at 10:00 Non-Formulary Medication (Ipratropium/ Albuterol Sulfate (Combivent Respimat Inhal)) 2 inh QID IH ; Start 09/14/17 at 09:00; Stop 09/14/17 at 09:10; Status DC Non-Formulary Medication (Melatonin ) 10 mg HS PO ; Start 09/14/17 at 21:00; Stop 09/14/17 at 21:00; Status DC Pantoprazole Sodium (Protonix) 40 mg DAILYAC PO Last administered on 09/19/17at 09:05; Start 09/14/17 at 09:00 Atorvastatin Calcium (Lipitor) 5 mg QHS PO Last administered on 09/18/17at 20:04 ; Start 09/14/17 at 21:00 Spironolactone (Aldactone) 25 mg DAILY PO Last administered on 09/19/17at 09:04 ; Start 09/14/17 at 10:00 Albuterol/ Ipratropium (Duoneb) 3 ml RTQID NEB ; Start 09/14/17 at 12:00; Stop at 12:00; Status DC Furosemide (Lasix) 60 mg 1X ONCE IVP Last administered on 09/14/17at 15:34; Start 09/14/17 at 15:45; Stop 09/14/17 at 15:46; Status DC Haloperidol (Haldol) 2 mg PRN Q2HR PRN PO AGITATION; Start 09/15/17 at 12:30 Haloperidol Lactate (Haldol Inj) 2 mg PRN Q2HR PRN IVP AGITATION Last administered on 09/16/17at 02:32; Start 09/15/17 at 13:15; Stop 09/17/17 at 14:13; Status DC Lorazepam (Ativan) 0.5 mg PRN Q4HRS PRN IV ANXIETY/AGITATION (1st Choice) Last administered on 09/18/17at 15:36; Start 09/16/17 at 08:45 Furosemide (Lasix) 80 mg BID92 IVP Last administered on 09/19/17at 09:05; Start 09/16/17 at 09:00 Furosemide (Lasix) 40 mg 1X ONCE IVP Last administered on 09/16/17at 11:54; Start 09/16/17 at 11:45; Stop 09/16/17 at 11:46; Status DC Barium Sulfate (Varibar Thin Liquid Apple) 148 gm 1X ONCE PO Last administered on 09/16/17at 14:15; Start 09/16/17 at 14:15; Stop 09/16/17 at 14:16; Status DC Phytonadione (Vitamin K Ampule) 5 mg 1X ONCE SQ Last administered on at 13:53; Start 09/17/17 at 10:00; Stop 09/17/17 at 10:01; Status DC Haloperidol Lactate (Haldol Inj) 2 mg PRN Q2HRS PRN IVP AGITATION (2nd Choice) ; Start 09/17/17 at 14:15 Albuterol/ Ipratropium (Duoneb) 3 ml Q4HRS NEB ; Start 09/19/17 at 12:00 Active Scripts Active Culturelle (Lactobacillus Rhamnosus Gg) 1 Each Cap.sprink 1 Cap PO BID 14 Days Furosemide 80 Mg Tablet 1 Tab PO BID Pravastatin Sodium 20 Mg Tablet 1 Tab PO DAILY Nystop (Nystatin) 1 Jessenia Jessenia 1 Jessenia TP BID Reported Benadryl (Diphenhydramine Hcl) 25 Mg Capsule 1 Cap PO QHS Systane 0.3-0.4% Eye Drops (Propylene Glycol/Peg 400) 15 Ml Drops 1 Drop RIGHTEYE QID Citalopram Hbr (Citalopram Hydrobromide) 20 Mg Tablet 1 Tab PO DAILY Tylenol (Acetaminophen) 325 Mg Tablet 650 Mg PO [id number] Combivent Respimat Inhal (Ipratropium/Albuterol Sulfate) 4 Gm Aer.w.adap 2 Inh IH QID Systane Gel (Hypromellose) 10 Gm Gel..gram. 10 Gm OP Latanoprost 2.5 Ml Drops 1 Drop EACHEYE QHS Simethicone 180 Mg Capsule 125 Mg PO BID Melatonin 3 Mg Tablet 10 Mg PO HS Vitamin B-12 (Cyanocobalamin (Vitamin B-12)) 1,000 Mcg Tablet 2,500 Mcg PO DAILY Warfarin Sodium 2 Mg Tablet 2.5 Mg PO DAILY Warfarin Sodium 5 Mg Tablet 1 Tab PO DAILY Diltiazem 24HR Cd (Diltiazem Hcl) 180 Mg Cap.er.24h 1 Cap PO BID Levothyroxine Sodium 112 Mcg Tablet 1 Tab PO DAILY Spironolactone 25 Mg Tablet 1 Tab PO DAILY Advair 250-50 Diskus (Fluticasone/Salmeterol) 1 Each Disk.w.dev 1 Puff IH BID Benadryl (Diphenhydramine Hcl) 25 Mg Capsule 25 Mg PO PRN PRN Potassium Chloride 10 Meq Tablet.er 1 Tab PO BID Oxybutynin Chloride Er (Oxybutynin Chloride) 5 Mg Tab.er.24 1 Tab PO BID Simbrinza 1%-0.2% Eye Drops (Brinzolamide/Brimonid Tart) 8 Ml Drops.susp 8 Ml EACHEYE BID Advanced Eye Relief Dry Eye Dp (Glycerin/Propylene Glycol) 30 Ml Drops 1 Drop OP PRN Q2HRS PRN Restasis (Cyclosporine) 1 Each Droperette 1 Drop EACHEYE BID Omeprazole 20 Mg Capsule.dr 1 Cap PO DAILY Metoprolol Tartrate 25 Mg Tablet 1 Tab PO BID Vitals/I & O Vital Sign - Last 24 Hours 09/18/17 09/18/17 09/18/17 09/18/17 10:54 10:59 11:00 11:26 Temp 95.9 95.9 Pulse 60 60 62 Resp 18 B/P (MAP) 135/52 135/52 105/48 (67) Pulse Ox 96 O2 Delivery Nasal Cannula Nasal Cannula O2 Flow Rate 5.0 09/18/17 09/18/17 09/18/17 09/18/17 15:00 15:21 19:00 20:00 Temp 97.5 97.8 97.5 97.8 Pulse 66 69 Resp 18 18 B/P (MAP) 111/49 (69) 117/62 (80) Pulse Ox 92 94 O2 Delivery Room Air Nasal Cannula Room Air Nasal Cannula O2 Flow Rate 5.0 6.0 09/18/17 09/18/17 09/18/17 09/18/17 20:04 20:05 20:58 21:01 Pulse 69 69 B/P (MAP) 117/69 117/69 Pulse Ox 93 93 O2 Delivery Nasal Cannula Nasal Cannula O2 Flow Rate 5.0 5.0 09/18/17 09/19/17 09/19/17 09/19/17 22:48 00:17 03:00 03:06 Temp 97.9 98.2 97.9 98.2 Pulse 64 60 Resp 18 18 B/P (MAP) 111/47 (68) 123/55 (77) Pulse Ox 91 98 O2 Delivery Room Air BiPAP/CPAP Room Air BiPAP/CPAP 09/19/17 09/19/17 09/19/17 09/19/17 05:22 08:32 08:33 09:06 Pulse 60 B/P (MAP) 123/55 Pulse Ox 99 99 O2 Delivery BiPAP/CPAP Nasal Cannula Nasal Cannula O2 Flow Rate 5.0 5.0 09/19/17 09:10 Pulse 60 B/P (MAP) 123/55 Intake and Output 09/18/17 09/18/17 09/19/17 15:00 23:00 07:00 Intake Total 120 ml 200 ml Output Total 150 ml 700 ml 900 ml Balance -30 ml -500 ml -900 ml YOLI EVANS MD Sep 19, 2017 10:16
[2017-09-19 11:00] VITALS: BP 116/62
[2017-09-19] MEDS: metOLazone 2.5 MG TABLET PO SCH (14:01)
[2017-09-19] MEDS: LACTOBACILLUS RHAMNOSUS GG 1 CAPSULE. PO SCH ×2 (14:01→20:58)
[2017-09-19 15:00] VITALS: BP 106/51
[2017-09-19 19:00] VITALS: BP 137/74
[2017-09-19] MEDS: LATANOPROST 0.005% OPHTH SOLUTION 2.5ML BOTTLE. OU SCH (20:57)
[2017-09-19] MEDS: ATORVASTATIN CALCIUM 10 MG TABLET. PO SCH (20:58)
[2017-09-19 23:00] VITALS: BP 112/50
--- NOTE | 2017-09-20 00:22 | RAD ---
Single view chest 09/20/2017 Clinical indication: Evaluate PICC. COMPARISON: Chest radiograph September 18, 2017. FINDINGS: There is no identifiable radiopaque PICC. Unipolar left chest wall cardiac conduction device in similar position. Prior median sternotomy and CABG. Enlargement of the cardiac silhouette with pulmonary venous congestion and interstitial opacities. Bilateral pleural effusions with a layering component. No pneumothorax. Stable left perihilar linear opacity, likely scarring or atelectasis. IMPRESSION: 1. PICC is not visualized. Clinical correlation is recommended. 2. No significant change in findings of CHF or volume overload with cardiomegaly, pulmonary edema and bilateral pleural effusions. Electronically signed by: Sathish Herron MD (09/20/2017 12:18 AM) [id number]
[2017-09-20 03:00] VITALS: BP 119/58
[2017-09-20] MEDS: IPRATRPIUM/ALBUTEROL 0.5/2.5MG 3 ML NEBU. NEB SCH ×6 (04:00→20:30)
[2017-09-20] MEDS: LEVOTHYROXINE 112 MCG TABLET PO SCH (06:23)
[2017-09-20] MEDS: PANTOPRAZOLE 40 MG TABLET.DR. PO SCH (06:23)
[2017-09-20 07:00] VITALS: BP 119/69
[2017-09-20] MEDS: BUDESONIDE 0.5 MG/2 ML NEBU. NEB SCH ×2 (07:58→20:30)
[2017-09-20 08:39] LABS: CALCIUM 10.6 mg/dL (8.5-10.1); CREATININE 1.5 mg/dL (0.6-1.0); GFR 33.4
[2017-09-20 08:49] LABS: PROTHROMBIN TIME PATIENT 19.3 SEC (11.7-14.0)
--- NOTE | 2017-09-20 09:07 | PDOC ---
PROGRESS NOTES Subjective Subjective Patient without complaint, states her breathing is "OK". Objective Objective Vital Signs Date Time Temp Pulse Resp B/P (MAP) Pulse Ox O2 Delivery O2 Flow Rate FiO2 09/20/17 08:00 Nasal Cannula 5.0 09/20/17 03:00 98.0 61 20 119/58 (78) 92 98.0 Intake and Output 09/20/17 07:00 Intake Total 580 ml Output Total 2000 ml Balance -1420 ml Intake Oral 580 ml Output Urine Total 2000 ml # Bowel Movements 1 Physical Exam Abdomen: Normal bowel sounds, Soft, No tenderness Heart: Other (irregularly irregular) Extremities: No edema General: Alert, No acute distress Lungs: Other (BS decreased throughout but otherwise CTA) Plan Plan of Care 1. Acute on chronic respiratory failure with COPD - appears close to baseline. Continue Bipap at HS and O2 during the day. 2. AE CHF - good diuresis past several days. Lost IV access last evening. Will change Lasix back to po and follow. 3. dysphagia - stable, continue present diet per ST recommendations. 4. chronic afib - rate controlled. INR less than 2, will start Eliquis at renal dose due to patient's significant coagulopathy with Coumadin. 5. CKD III - stable on lab. 6. debility - continue therapies, hope to transfer back to retirement tomorrow if consultants in agreement. Comment Review of Relevant I have reviewed the following items muna (where applicable) has been applied. Labs Laboratory Tests Test 09/19/17 05:20 09/20/17 07:40 Prothrombin Time 24.7 SEC (11.7-14.0) 19.3 SEC (11.7-14.0) Prothromb Time International Ratio 2.3 (0.8-1.1) 1.7 (0.8-1.1) Sodium Level 145 mmol/L (136-145) Potassium Level 4.0 mmol/L (3.5-5.1) Chloride Level 108 mmol/L (98-107) Carbon Dioxide Level 33 mmol/L (21-32) Anion Gap 4 (6-14) Blood Urea Nitrogen 16 mg/dL (7-20) Creatinine 1.5 mg/dL (0.6-1.0) Estimated GFR (Cockcroft-Gault) 33.4 Glucose Level 98 mg/dL (70-99) Calcium Level 10.6 mg/dL (8.5-10.1) Laboratory Tests Test 09/20/17 07:40 Prothrombin Time 19.3 SEC (11.7-14.0) Prothromb Time International Ratio 1.7 (0.8-1.1) Sodium Level 145 mmol/L (136-145) Potassium Level 4.0 mmol/L (3.5-5.1) Chloride Level 108 mmol/L (98-107) Carbon Dioxide Level 33 mmol/L (21-32) Anion Gap 4 (6-14) Blood Urea Nitrogen 16 mg/dL (7-20) Creatinine 1.5 mg/dL (0.6-1.0) Estimated GFR (Cockcroft-Gault) 33.4 Glucose Level 98 mg/dL (70-99) Calcium Level 10.6 mg/dL (8.5-10.1) Medications Current Medications Furosemide (Lasix) 40 mg 1X ONCE IVP Last administered on 09/13/17at 17:21; Start 09/13/17 at 17:00; Stop 09/13/17 at 17:01; Status DC Ondansetron HCl (Zofran) 4 mg PRN Q8HRS PRN IV NAUSEA/VOMITING; Start 09/13/17 at 16:30; Stop 09/14/17 at 16:29; Status DC Acetaminophen (Tylenol) 650 mg PRN Q4HRS PRN PO FEVER; Start 09/13/17 at 16:30; Stop 09/13/17 at 23:31; Status DC Albuterol/ Ipratropium (Duoneb) 3 ml RTQID NEB Last administered on 09/19/17at 08:24; Start 09/13/17 at 20:00; Stop 09/19/17 at 08:52; Status DC Cyclosporine (Restasis) 1 drop BID OU Last administered on 09/19/17at 20:57; Start 09/13/17 at 22:00 Diphenhydramine HCl (Benadryl) 25 mg PRN QHS PRN PO INSOMNIA 1ST CHOICE Last administered on 09/17/17at 21:44; Start 09/13/17 at 21:45 Lactobacillus Rhamnosus (Culturelle) 1 cap BID PO Last administered on at 20:58; Start 09/13/17 at 22:00 Metoprolol Tartrate (Lopressor) 25 mg BID PO Last administered on 09/19/17 20: 58; Start 09/13/17 at 22:00 Nystatin (Nystop) 1 jessenia BID TP Last administered on 09/19/17 21:00; Start 09/13 at 22:00 Potassium Chloride (Klor-Con) 10 meq BID PO Last administered on 09/19/17 20: 59; Start 09/13/17 at 22:00 Dorzolamide HCl (Trusopt) 1 drop BID OU Last administered on 09/19/17 20:57; Start 09/13/17 at 22:00 Budesonide (Pulmicort) 0.5 mg RTBID NEB Last administered on 09/20/17 07:58; Start 09/13/17 at 22:00 Artificial Tears (Artificial Tears) 1 drop PRN Q2HR PRN OU DRY EYE; Start at 22:00 Latanoprost (Xalatan) 1 drop QHS OU Last administered on 09/19/17 20:57; Start 09/13/17 at 22:00 Oxybutynin Chloride (Ditropan) 5 mg BID PO Last administered on 09/19/17 20:58 ; Start 09/13/17 at 22:00 Artificial Tears (Artificial Tears) 1 drop QID OD Last administered on 20:57; Start 09/14/17 at 09:00 Simethicone (Gas-X) 80 mg BID PO Last administered on 09/19/17 20:58; Start at 22:00 Brimonidine Tartrate (Alphagan) 1 drop BID OU Last administered on 09/19/17 20 :57; Start 09/13/17 at 22:00 Acetaminophen (Tylenol) 650 mg PRN Q6HRS PRN PO MILD PAIN / TEMP Last administered on 09/16/17 11:54; Start 09/13/17 at 23:30 Citalopram Hydrobromide (CeleXA) 20 mg DAILY PO Last administered on 09/19/17 09:05; Start 09/14/17 at 09:00 Cyanocobalamin (Vitamin B-12) 2,500 mcg DAILY PO Last administered on 8/12/ 18at 09:04; Start 09/14/17 at 09:00 Furosemide (Lasix) 80 mg BID92 PO Last administered on 09/15/17at 13:23; Start at 09:00; Stop 09/16/17 at 08:56; Status DC Levothyroxine Sodium (Synthroid) 112 mcg DAILY07 PO Last administered on at 06:23; Start 09/14/17 at 09:00 Diltiazem HCl (Cardizem 24hr Cd) 180 mg BID PO Last administered on 09/19/17at 20:57; Start 09/14/17 at 10:00 Non-Formulary Medication (Ipratropium/ Albuterol Sulfate (Combivent Respimat Inhal)) 2 inh QID IH ; Start 09/14/17 at 09:00; Stop 09/14/17 at 09:10; Status DC Non-Formulary Medication (Melatonin ) 10 mg HS PO ; Start 09/14/17 at 21:00; Stop 09/14/17 at 21:00; Status DC Pantoprazole Sodium (Protonix) 40 mg DAILYAC PO Last administered on 09/20/17at 06:23; Start 09/14/17 at 09:00 Atorvastatin Calcium (Lipitor) 5 mg QHS PO Last administered on 09/19/17at 20:58 ; Start 09/14/17 at 21:00 Spironolactone (Aldactone) 25 mg DAILY PO Last administered on 09/19/17at 09:04 ; Start 09/14/17 at 10:00 Albuterol/ Ipratropium (Duoneb) 3 ml RTQID NEB ; Start 09/14/17 at 12:00; Stop at 12:00; Status DC Furosemide (Lasix) 60 mg 1X ONCE IVP Last administered on 09/14/17at 15:34; Start 09/14/17 at 15:45; Stop 09/14/17 at 15:46; Status DC Haloperidol (Haldol) 2 mg PRN Q2HR PRN PO AGITATION; Start 09/15/17 at 12:30 Haloperidol Lactate (Haldol Inj) 2 mg PRN Q2HR PRN IVP AGITATION Last administered on 09/16/17at 02:32; Start 09/15/17 at 13:15; Stop 09/17/17 at 14:13; Status DC Lorazepam (Ativan) 0.5 mg PRN Q4HRS PRN IV ANXIETY/AGITATION (1st Choice) Last administered on 09/18/17at 15:36; Start 09/16/17 at 08:45 Furosemide (Lasix) 80 mg BID92 IVP Last administered on 09/19/17at 14:01; Start 09/16/17 at 09:00; Stop 09/20/17 at 01:34; Status DC Furosemide (Lasix) 40 mg 1X ONCE IVP Last administered on 09/16/17at 11:54; Start 09/16/17 at 11:45; Stop 09/16/17 at 11:46; Status DC Barium Sulfate (Varibar Thin Liquid Apple) 148 gm 1X ONCE PO Last administered on 09/16/17at 14:15; Start 09/16/17 at 14:15; Stop 09/16/17 at 14:16; Status DC Phytonadione (Vitamin K Ampule) 5 mg 1X ONCE SQ Last administered on at 13:53; Start 09/17/17 at 10:00; Stop 09/17/17 at 10:01; Status DC Haloperidol Lactate (Haldol Inj) 2 mg PRN Q2HRS PRN IVP AGITATION (2nd Choice) ; Start 09/17/17 at 14:15 Albuterol/ Ipratropium (Duoneb) 3 ml Q4HRS NEB Last administered on 09/20/17at 07:58; Start 09/19/17 at 12:00 Metolazone (Zaroxolyn) 5 mg DAILY PO Last administered on 09/19/17at 14:01; Start 09/19/17 at 10:30; Stop 09/23/17 at 10:29 Active Scripts Active Culturelle (Lactobacillus Rhamnosus Gg) 1 Each Cap.sprink 1 Cap PO BID 14 Days Furosemide 80 Mg Tablet 1 Tab PO BID Pravastatin Sodium 20 Mg Tablet 1 Tab PO DAILY Nystop (Nystatin) 1 Jessenia Jessenia 1 Jessenia TP BID Reported Benadryl (Diphenhydramine Hcl) 25 Mg Capsule 1 Cap PO QHS Systane 0.3-0.4% Eye Drops (Propylene Glycol/Peg 400) 15 Ml Drops 1 Drop RIGHTEYE QID Citalopram Hbr (Citalopram Hydrobromide) 20 Mg Tablet 1 Tab PO DAILY Tylenol (Acetaminophen) 325 Mg Tablet 650 Mg PO [id number] Combivent Respimat Inhal (Ipratropium/Albuterol Sulfate) 4 Gm Aer.w.adap 2 Inh IH QID Systane Gel (Hypromellose) 10 Gm Gel..gram. 10 Gm OP Latanoprost 2.5 Ml Drops 1 Drop EACHEYE QHS Simethicone 180 Mg Capsule 125 Mg PO BID Melatonin 3 Mg Tablet 10 Mg PO HS Vitamin B-12 (Cyanocobalamin (Vitamin B-12)) 1,000 Mcg Tablet 2,500 Mcg PO DAILY Warfarin Sodium 2 Mg Tablet 2.5 Mg PO DAILY Warfarin Sodium 5 Mg Tablet 1 Tab PO DAILY Diltiazem 24HR Cd (Diltiazem Hcl) 180 Mg Cap.er.24h 1 Cap PO BID Levothyroxine Sodium 112 Mcg Tablet 1 Tab PO DAILY Spironolactone 25 Mg Tablet 1 Tab PO DAILY Advair 250-50 Diskus (Fluticasone/Salmeterol) 1 Each Disk.w.dev 1 Puff IH BID Benadryl (Diphenhydramine Hcl) 25 Mg Capsule 25 Mg PO PRN PRN Potassium Chloride 10 Meq Tablet.er 1 Tab PO BID Oxybutynin Chloride Er (Oxybutynin Chloride) 5 Mg Tab.er.24 1 Tab PO BID Simbrinza 1%-0.2% Eye Drops (Brinzolamide/Brimonid Tart) 8 Ml Drops.susp 8 Ml EACHEYE BID Advanced Eye Relief Dry Eye Dp (Glycerin/Propylene Glycol) 30 Ml Drops 1 Drop OP PRN Q2HRS PRN Restasis (Cyclosporine) 1 Each Droperette 1 Drop EACHEYE BID Omeprazole 20 Mg Capsule. 1 Cap PO DAILY Metoprolol Tartrate 25 Mg Tablet 1 Tab PO BID Vitals/I & O Vital Sign - Last 24 Hours 09/19/17 09/19/17 09/19/17 09/19/17 09:06 09:10 11:00 11:29 Temp 97.5 97.5 Pulse 60 60 64 Resp 24 B/P (MAP) 123/55 123/55 116/62 (80) Pulse Ox 92 O2 Delivery Nasal Cannula BiPAP/CPAP O2 Flow Rate 5.0 8/01/2509/19/17 09/19/17 09/19/17 15:00 15:24 18:20 19:00 Temp 97.0 97.7 97.0 97.7 Pulse 62 74 Resp 24 22 B/P (MAP) 106/51 (69) 137/74 (95) Pulse Ox 93 97 O2 Delivery Room Air Nasal Cannula Nasal Cannula Nasal Cannula O2 Flow Rate 5.0 5.0 09/19/17 09/19/17 09/19/17 09/19/17 20:00 20:57 20:58 23:00 Temp 98.0 98.0 Pulse 74 74 64 Resp 24 B/P (MAP) 137/74 137/74 112/50 (70) Pulse Ox 98 O2 Delivery Nasal Cannula BiPAP/CPAP O2 Flow Rate 5.0 09/20/17 09/20/17 09/20/17 09/20/17 00:29 01:32 03:00 03:40 Temp 98.0 98.0 Pulse 61 Resp 20 B/P (MAP) 119/58 (78) Pulse Ox 92 O2 Delivery BiPAP/CPAP BiPAP/CPAP BiPAP/CPAP BiPAP/CPAP 09/20/17 09/20/17 05:32 08:00 O2 Delivery BiPAP/CPAP Nasal Cannula O2 Flow Rate 5.0 Intake and Output 09/19/17 09/19/17 09/20/17 15:00 23:00 07:00 Intake Total 240 ml 240 ml 100 ml Output Total 1150 ml 850 ml Balance 240 ml -910 ml -750 ml TOÑITO PEREYRA MD Sep 20, 2017 09:07
[2017-09-20] MEDS ORDERED: ANTI-COAG MONITOR BY PHARMACY. MC PRN (09:15)
[2017-09-20] MEDS: SIMETHICONE 80 MG TAB.CHEW PO SCH ×2 (09:29→23:07)
[2017-09-20] MEDS: SPIRONOLACTONE 25 MG TABLET PO SCH (09:29)
[2017-09-20] MEDS: METOPROLOL TART IMMED RELEASE 25 MG TABLET. PO SCH ×2 (09:29→23:07)
[2017-09-20] MEDS: CITALOPRAM 20 MG TABLET. PO SCH (09:29)
[2017-09-20] MEDS: OXYBUTYNIN CHLORIDE 5 MG TABLET PO SCH ×2 (09:29→23:07)
[2017-09-20] MEDS: metOLazone 2.5 MG TABLET PO SCH (09:30)
[2017-09-20] MEDS: POTASSIUM CHLORIDE 10 MEQ TABLET.ER. PO SCH ×2 (09:30→23:07)
[2017-09-20] MEDS: LACTOBACILLUS RHAMNOSUS GG 1 CAPSULE. PO SCH ×2 (09:30→23:06)
[2017-09-20] MEDS: BRIMONIDINE 0.2% OPHTH SOLUTION 5ML BOTTLE. OU SCH ×2 (09:31→23:08)
[2017-09-20] MEDS: CYANOCOBALAMIN (VITAMIN B-12) 1,000 MCG TABLET. PO SCH (09:31)
[2017-09-20] MEDS: POLYVINYL ALCOHOL 1.4% OPHTH SOLUTION 15ML BOTTLE. OD SCH ×4 (09:31→23:08)
[2017-09-20] MEDS: DORZOLAMIDE 2% OPHTH SOLUTION 10ML BOTTLE. OU SCH ×2 (09:31→23:06)
[2017-09-20] MEDS: cycloSPORINE 0.05% OPTH 1 DROP DROPERETTE OU SCH (09:31)
[2017-09-20] MEDS: NYSTATIN TOPICAL POWDER 15GM BOTTLE. TP SCH ×2 (09:32→23:08)
[2017-09-20] MEDS: FUROSEMIDE 80 MG TABLET. PO SCH ×2 (09:34→17:26)
[2017-09-20] MEDS: APIXABAN 2.5 MG TABLET. PO SCH ×2 (09:34→23:06)
--- NOTE | 2017-09-20 10:48 | PDOC ---
Subjective: Subjective: Currently resting on CPAP. Daughter says she swallows better if she sits up int he chair at 90 degrees to eat - ate in bed this morning. Objective: Objective: Reviewed Dr. Lees's note - ?SNU tomorrow, starting Eliquis in place of Coumadin. Vital Signs: Vital Signs Date Time Temp Pulse Resp B/P (MAP) Pulse Ox O2 Delivery O2 Flow Rate FiO2 09/20/17 09:30 60 119/69 09/20/17 08:00 Nasal Cannula 5.0 09/20/17 07:00 99.0 18 98 99.0 Labs: Laboratory Tests Test 09/20/17 07:40 Prothrombin Time 19.3 SEC Prothromb Time International Ratio 1.7 Sodium Level 145 mmol/L Potassium Level 4.0 mmol/L Chloride Level 108 mmol/L Carbon Dioxide Level 33 mmol/L Anion Gap 4 Blood Urea Nitrogen 16 mg/dL Creatinine 1.5 mg/dL Estimated GFR (Cockcroft-Gault) 33.4 Glucose Level 98 mg/dL Calcium Level 10.6 mg/dL PE: GEN: NAD LUNGS: CPAP NEURO/PSYCH: asleep, did not awaken A/P: Acute on chronic resp failure - better Dysphagia - stable Coagulopathy - resolved -- Would continue diet and swallowing precautions (specifically sitting at 90 degrees) per [employer]. Continue PPI. MICHELLE SAEZ Sep 20, 2017 10:48
[2017-09-20 11:00] VITALS: BP 113/65
[2017-09-20 15:00] VITALS: BP 99/37
--- NOTE | 2017-09-20 15:56 | PDOC ---
PULMONARY PROGRESS NOTES Subjective tired, no soa Vitals Vital Signs Date Time Temp Pulse Resp B/P (MAP) Pulse Ox O2 Delivery O2 Flow Rate FiO2 09/20/17 15:02 Nasal Cannula 5.0 09/20/17 15:00 97.9 61 16 99/37 (57) 94 97.9 ROS: No Nausea General: Alert, No acute distress Lungs: Other (few rhonchi) Cardiovascular: S1, S2 Abdomen: Soft, Non-tender Neuro Exam: Alert Extremities: No Edema Skin: Warm Labs Laboratory Tests Test 09/19/17 05:20 09/20/17 07:40 Prothrombin Time 24.7 SEC (11.7-14.0) 19.3 SEC (11.7-14.0) Prothromb Time International Ratio 2.3 (0.8-1.1) 1.7 (0.8-1.1) Sodium Level 145 mmol/L (136-145) Potassium Level 4.0 mmol/L (3.5-5.1) Chloride Level 108 mmol/L (98-107) Carbon Dioxide Level 33 mmol/L (21-32) Anion Gap 4 (6-14) Blood Urea Nitrogen 16 mg/dL (7-20) Creatinine 1.5 mg/dL (0.6-1.0) Estimated GFR (Cockcroft-Gault) 33.4 Glucose Level 98 mg/dL (70-99) Calcium Level 10.6 mg/dL (8.5-10.1) Laboratory Tests Test 09/20/17 07:40 Prothrombin Time 19.3 SEC (11.7-14.0) Prothromb Time International Ratio 1.7 (0.8-1.1) Sodium Level 145 mmol/L (136-145) Potassium Level 4.0 mmol/L (3.5-5.1) Chloride Level 108 mmol/L (98-107) Carbon Dioxide Level 33 mmol/L (21-32) Anion Gap 4 (6-14) Blood Urea Nitrogen 16 mg/dL (7-20) Creatinine 1.5 mg/dL (0.6-1.0) Estimated GFR (Cockcroft-Gault) 33.4 Glucose Level 98 mg/dL (70-99) Calcium Level 10.6 mg/dL (8.5-10.1) Medications Active Scripts Medications Dose Route/Sig Max Daily Dose Days Date Category Benadryl (Diphenhydramine Hcl) 25 Mg Capsule 1 Cap PO QHS 09/13/17 Reported Systane 0.3-0.4% Eye Drops (Propylene Glycol/Peg 400) 15 Ml Drops 1 Drop RIGHTEYE QID 09/13/17 Reported Citalopram Hbr (Citalopram Hydrobromide) 20 Mg Tablet 1 Tab PO DAILY 09/13/17 Reported Tylenol (Acetaminophen) 325 Mg Tablet 650 Mg PO [id number] 09/13/17 Reported Culturelle (Lactobacillus Rhamnosus Gg) 1 Each Cap.sprink 1 Cap PO BID 14 08/24/17 Rx Combivent Respimat Inhal (Ipratropium/Albuterol Sulfate) 4 Gm Aer.w.adap 2 Inh IH QID 08/15/17 Reported Systane Gel (Hypromellose) 10 Gm Gel..gram. 10 Gm OP 08/15/17 Reported Latanoprost 2.5 Ml Drops 1 Drop EACHEYE QHS 08/15/17 Reported Furosemide 80 Mg Tablet 1 Tab PO BID 08/15/17 Rx Pravastatin Sodium 20 Mg Tablet 1 Tab PO DAILY 05/12/17 Rx Simethicone 180 Mg Capsule 125 Mg PO BID 05/12/17 Reported Melatonin 3 Mg Tablet 10 Mg PO HS 05/12/17 Reported Vitamin B-12 (Cyanocobalamin (Vitamin B-12)) 1,000 Mcg Tablet 2,500 Mcg PO DAILY 05/12/17 Reported Warfarin Sodium 2 Mg Tablet 2.5 Mg PO DAILY 05/12/17 Reported Warfarin Sodium 5 Mg Tablet 1 Tab PO DAILY 05/12/17 Reported Diltiazem 24HR Cd (Diltiazem Hcl) 180 Mg Cap.er.24h 1 Cap PO BID 05/12/17 Reported Levothyroxine Sodium 112 Mcg Tablet 1 Tab PO DAILY 05/12/17 Reported Spironolactone 25 Mg Tablet 1 Tab PO DAILY 02/07/16 Reported Advair 250-50 Diskus (Fluticasone/Salmeterol) 1 Each Disk.w.dev 1 Puff IH BID 02/07/16 Reported Nystop (Nystatin) 1 Jessenia Jessenia 1 Jessenia TP BID 12/19/14 Rx Benadryl (Diphenhydramine Hcl) 25 Mg Capsule 25 Mg PO PRN PRN 12/15/14 Reported Potassium Chloride 10 Meq Tablet.er 1 Tab PO BID 12/15/14 Reported Oxybutynin Chloride Er (Oxybutynin Chloride) 5 Mg Tab.er.24 1 Tab PO BID 12/15/14 Reported Simbrinza 1%-0.2% Eye Drops (Brinzolamide/Brimonid Tart) 8 Ml Drops.susp 8 Ml EACHEYE BID 12/15/14 Reported Advanced Eye Relief Dry Eye Dp (Glycerin/Propylene Glycol) 30 Ml Drops 1 Drop OP PRN Q2HRS PRN 12/15/14 Reported Restasis (Cyclosporine) 1 Each Droperette 1 Drop EACHEYE BID 12/15/14 Reported Omeprazole 20 Mg Capsule.dr 1 Cap PO DAILY 12/15/14 Reported Metoprolol Tartrate 25 Mg Tablet 1 Tab PO BID 12/15/14 Reported Impression . 1. Tzcpf-oh-bzhzwdr hypoxic respiratory failure secondary to mfnii-cf-zmljovs diastolic heart failure. compensated 2. Akhan-mc-picfylp diastolic heart failure. 3. Underlying chronic obstructive pulmonary disease with oxygen dependence. 4. Abnormal chest x-ray with worsening interstitial edema and a small left pleural effusion. 5. Leukopenia. 6. Chronic kidney disease stage 3. 7. Coagulopathy. Plan . 1. keep I<O, lasix, monitor k, cr, 2. BiPAP prn during day, cont at night. setting reviewed. 3. bronchodilators 4. chest x-ray reviewed 5. Continue DuoNebs. 6. Follow Cardiology's recommendations. 7. Monitor white cell count and INR, 8. dysphagia diet 9. protonix for stress ulcer prophylaxis Discussed with RN, pt ok with dc to [facility] in [facility] Reardon MD Sep 20, 2017 15:56
[2017-09-20 19:00] VITALS: BP 132/52
[2017-09-20 23:00] VITALS: BP 112/41
[2017-09-20] MEDS: ATORVASTATIN CALCIUM 10 MG TABLET. PO SCH (23:07)
[2017-09-20] MEDS: LATANOPROST 0.005% OPHTH SOLUTION 2.5ML BOTTLE. OU SCH (23:08)
[2017-09-21] MEDS: IPRATRPIUM/ALBUTEROL 0.5/2.5MG 3 ML NEBU. NEB SCH ×4 (00:01→11:45)
[2017-09-21] MEDS: cycloSPORINE 0.05% OPTH 1 DROP DROPERETTE OU SCH ×2 (00:13→09:16)
[2017-09-21 03:00] VITALS: BP 117/67
[2017-09-21 06:41] LABS: CALCIUM 11.2 mg/dL (8.5-10.1); CREATININE 1.7 mg/dL (0.6-1.0); GFR 28.9; POTASSIUM 3.7 mmol/L (3.5-5.1)
[2017-09-21 07:00] VITALS: BP 104/42
[2017-09-21] MEDS: LEVOTHYROXINE 112 MCG TABLET PO SCH (07:03)
[2017-09-21] MEDS: PANTOPRAZOLE 40 MG TABLET.DR. PO SCH (07:03)
[2017-09-21] MEDS: BUDESONIDE 0.5 MG/2 ML NEBU. NEB SCH (07:40)
--- NOTE | 2017-09-21 08:44 | PDOC ---
PROGRESS NOTES Subjective Subjective Patient without complaint, feels ready to go back to [facility]. Objective Objective Vital Signs Date Time Temp Pulse Resp B/P (MAP) Pulse Ox O2 Delivery O2 Flow Rate FiO2 09/21/17 07:42 92 Nasal Cannula 5.0 09/21/17 03:00 97.8 63 20 117/67 (84) 97.8 Intake and Output 09/21/17 07:00 Intake Total 1020 ml Balance 1020 ml Intake Oral 1020 ml # Voids 3 Physical Exam Abdomen: Normal bowel sounds, Soft, No tenderness Heart: Other (irregularly irregular) Extremities: No edema General: Alert, Oriented X3, No acute distress Lungs: Other (BS decreased throughout but otherwise CTA) Plan Plan of Care 1. Acute on chronic respiratory failure with COPD - improved, appears back to baseline. Continue O2 and nebs, Bipap at HS. 2. AE CHF - appears stable, continue her usual Lasix BID. K+ good with present po replacement. 3. dysphagia - stable, does well sitting up in chair for meals. Continue dysphagia II diet with thickened liquids. 4. chronic afib - rate controlled, continue present meds including Eliquis at renal dose. 5. CKD III - stable on lab. 6. debility - transfer back to [facility] today to continue rehab. Comment Review of Relevant I have reviewed the following items muna (where applicable) has been applied. Labs Laboratory Tests Test 09/20/17 07:40 09/21/17 05:45 Prothrombin Time 19.3 SEC (11.7-14.0) Prothromb Time International Ratio 1.7 (0.8-1.1) Sodium Level 145 mmol/L (136-145) 140 mmol/L (136-145) Potassium Level 4.0 mmol/L (3.5-5.1) 3.7 mmol/L (3.5-5.1) Chloride Level 108 mmol/L (98-107) 104 mmol/L (98-107) Carbon Dioxide Level 33 mmol/L (21-32) 33 mmol/L (21-32) Anion Gap 4 (6-14) 3 (6-14) Blood Urea Nitrogen 16 mg/dL (7-20) 17 mg/dL (7-20) Creatinine 1.5 mg/dL (0.6-1.0) 1.7 mg/dL (0.6-1.0) Estimated GFR (Cockcroft-Gault) 33.4 28.9 Glucose Level 98 mg/dL (70-99) 98 mg/dL (70-99) Calcium Level 10.6 mg/dL (8.5-10.1) 11.2 mg/dL (8.5-10.1) Laboratory Tests Test 09/21/17 05:45 Sodium Level 140 mmol/L (136-145) Potassium Level 3.7 mmol/L (3.5-5.1) Chloride Level 104 mmol/L (98-107) Carbon Dioxide Level 33 mmol/L (21-32) Anion Gap 3 (6-14) Blood Urea Nitrogen 17 mg/dL (7-20) Creatinine 1.7 mg/dL (0.6-1.0) Estimated GFR (Cockcroft-Gault) 28.9 Glucose Level 98 mg/dL (70-99) Calcium Level 11.2 mg/dL (8.5-10.1) Medications Current Medications Furosemide (Lasix) 40 mg 1X ONCE IVP Last administered on 09/13/17at 17:21; Start 09/13/17 at 17:00; Stop 09/13/17 at 17:01; Status DC Ondansetron HCl (Zofran) 4 mg PRN Q8HRS PRN IV NAUSEA/VOMITING; Start 09/13/17 at 16:30; Stop 09/14/17 at 16:29; Status DC Acetaminophen (Tylenol) 650 mg PRN Q4HRS PRN PO FEVER; Start 09/13/17 at 16:30; Stop 09/13/17 at 23:31; Status DC Albuterol/ Ipratropium (Duoneb) 3 ml RTQID NEB Last administered on 09/19/17at 08:24; Start 09/13/17 at 20:00; Stop 09/19/17 at 08:52; Status DC Cyclosporine (Restasis) 1 drop BID OU Last administered on 09/21/17at 00:13; Start 09/13/17 at 22:00 Diphenhydramine HCl (Benadryl) 25 mg PRN QHS PRN PO INSOMNIA 1ST CHOICE Last administered on 09/17/17at 21:44; Start 09/13/17 at 21:45 Lactobacillus Rhamnosus (Culturelle) 1 cap BID PO Last administered on 23:06; Start 09/13/17 at 22:00 Metoprolol Tartrate (Lopressor) 25 mg BID PO Last administered on 09/20/17 23: 07; Start 09/13/17 at 22:00 Nystatin (Nystop) 1 jessenia BID TP Last administered on 09/20/17 23:08; Start 09/13 at 22:00 Potassium Chloride (Klor-Con) 10 meq BID PO Last administered on 09/20/17 23: 07; Start 09/13/17 at 22:00 Dorzolamide HCl (Trusopt) 1 drop BID OU Last administered on 09/20/17 23:06; Start 09/13/17 at 22:00 Budesonide (Pulmicort) 0.5 mg RTBID NEB Last administered on 09/21/17 07:40; Start 09/13/17 at 22:00 Artificial Tears (Artificial Tears) 1 drop PRN Q2HR PRN OU DRY EYE; Start at 22:00 Latanoprost (Xalatan) 1 drop QHS OU Last administered on 09/20/17 23:08; Start 09/13/17 at 22:00 Oxybutynin Chloride (Ditropan) 5 mg BID PO Last administered on 09/20/17 23:07 ; Start 09/13/17 at 22:00 Artificial Tears (Artificial Tears) 1 drop QID OD Last administered on 23:08; Start 09/14/17 at 09:00 Simethicone (Gas-X) 80 mg BID PO Last administered on 09/20/17 23:07; Start at 22:00 Brimonidine Tartrate (Alphagan) 1 drop BID OU Last administered on 09/20/17 23 :08; Start 09/13/17 at 22:00 Acetaminophen (Tylenol) 650 mg PRN Q6HRS PRN PO MILD PAIN / TEMP Last administered on 09/16/17 11:54; Start 09/13/17 at 23:30 Citalopram Hydrobromide (CeleXA) 20 mg DAILY PO Last administered on 09/20/17 09:29; Start 09/14/17 at 09:00 Cyanocobalamin (Vitamin B-12) 2,500 mcg DAILY PO Last administered on 09:31; Start 09/14/17 at 09:00 Furosemide (Lasix) 80 mg BID92 PO Last administered on 09/15/17 13:23; Start at 09:00; Stop 09/16/17 at 08:56; Status DC Levothyroxine Sodium (Synthroid) 112 mcg DAILY07 PO Last administered on 07:03; Start 09/14/17 at 09:00 Diltiazem HCl (Cardizem 24hr Cd) 180 mg BID PO Last administered on 09/20/17 23:06; Start 09/14/17 at 10:00 Non-Formulary Medication (Ipratropium/ Albuterol Sulfate (Combivent Respimat Inhal)) 2 inh QID IH ; Start 09/14/17 at 09:00; Stop 09/14/17 at 09:10; Status DC Non-Formulary Medication (Melatonin ) 10 mg HS PO ; Start 09/14/17 at 21:00; Stop 09/14/17 at 21:00; Status DC Pantoprazole Sodium (Protonix) 40 mg DAILYAC PO Last administered on 09/21/17 07:03; Start 09/14/17 at 09:00 Atorvastatin Calcium (Lipitor) 5 mg QHS PO Last administered on 09/20/17 23:07 ; Start 09/14/17 at 21:00 Spironolactone (Aldactone) 25 mg DAILY PO Last administered on 09/20/17 09:29 ; Start 09/14/17 at 10:00 Albuterol/ Ipratropium (Duoneb) 3 ml RTQID NEB ; Start 09/14/17 at 12:00; Stop at 12:00; Status DC Furosemide (Lasix) 60 mg 1X ONCE IVP Last administered on 09/14/17at 15:34; Start 09/14/17 at 15:45; Stop 09/14/17 at 15:46; Status DC Haloperidol (Haldol) 2 mg PRN Q2HR PRN PO AGITATION Last administered on at 14:34; Start 09/15/17 at 12:30 Haloperidol Lactate (Haldol Inj) 2 mg PRN Q2HR PRN IVP AGITATION Last administered on 09/16/17at 02:32; Start 09/15/17 at 13:15; Stop 09/17/17 at 14:13; Status DC Lorazepam (Ativan) 0.5 mg PRN Q4HRS PRN IV ANXIETY/AGITATION (1st Choice) Last administered on 09/18/17at 15:36; Start 09/16/17 at 08:45; Stop 09/20/17 at 08:56 ; Status DC Furosemide (Lasix) 80 mg BID92 IVP Last administered on 09/19/17at 14:01; Start 09/16/17 at 09:00; Stop 09/20/17 at 01:34; Status DC Furosemide (Lasix) 40 mg 1X ONCE IVP Last administered on 09/16/17at 11:54; Start 09/16/17 at 11:45; Stop 09/16/17 at 11:46; Status DC Barium Sulfate (Varibar Thin Liquid Apple) 148 gm 1X ONCE PO Last administered on 09/16/17at 14:15; Start 09/16/17 at 14:15; Stop 09/16/17 at 14:16; Status DC Phytonadione (Vitamin K Ampule) 5 mg 1X ONCE SQ Last administered on at 13:53; Start 09/17/17 at 10:00; Stop 09/17/17 at 10:01; Status DC Haloperidol Lactate (Haldol Inj) 2 mg PRN Q2HRS PRN IVP AGITATION (2nd Choice) ; Start 09/17/17 at 14:15; Stop 09/20/17 at 08:56; Status DC Albuterol/ Ipratropium (Duoneb) 3 ml Q4HRS NEB Last administered on 09/21/17at 07:39; Start 09/19/17 at 12:00 Metolazone (Zaroxolyn) 5 mg DAILY PO Last administered on 09/20/17at 09:30; Start 09/19/17 at 10:30; Stop 09/23/17 at 10:29 Furosemide (Lasix) 80 mg BID94 PO Last administered on 09/20/17at 17:26; Start 09/20/17 at 09:00 Apixaban (Eliquis) 2.5 mg BID PO Last administered on 09/20/17at 23:06; Start at 09:15 Info (Anti-Coagulation Monitoring By Pharmacy) 1 each PRN DAILY PRN MC SEE COMMENTS; Start 09/20/17 at 09:15 Active Scripts Active Culturelle (Lactobacillus Rhamnosus Gg) 1 Each Cap.sprink 1 Cap PO BID 14 Days Furosemide 80 Mg Tablet 1 Tab PO BID Pravastatin Sodium 20 Mg Tablet 1 Tab PO DAILY Nystop (Nystatin) 1 Jessenia Jessenia 1 Jessenia TP BID Reported Benadryl (Diphenhydramine Hcl) 25 Mg Capsule 1 Cap PO QHS Systane 0.3-0.4% Eye Drops (Propylene Glycol/Peg 400) 15 Ml Drops 1 Drop RIGHTEYE QID Citalopram Hbr (Citalopram Hydrobromide) 20 Mg Tablet 1 Tab PO DAILY Tylenol (Acetaminophen) 325 Mg Tablet 650 Mg PO [id number] Combivent Respimat Inhal (Ipratropium/Albuterol Sulfate) 4 Gm Aer.w.adap 2 Inh IH QID Systane Gel (Hypromellose) 10 Gm Gel..gram. 10 Gm OP Latanoprost 2.5 Ml Drops 1 Drop EACHEYE QHS Simethicone 180 Mg Capsule 125 Mg PO BID Melatonin 3 Mg Tablet 10 Mg PO HS Vitamin B-12 (Cyanocobalamin (Vitamin B-12)) 1,000 Mcg Tablet 2,500 Mcg PO DAILY Warfarin Sodium 2 Mg Tablet 2.5 Mg PO DAILY Warfarin Sodium 5 Mg Tablet 1 Tab PO DAILY Diltiazem 24HR Cd (Diltiazem Hcl) 180 Mg Cap.er.24h 1 Cap PO BID Levothyroxine Sodium 112 Mcg Tablet 1 Tab PO DAILY Spironolactone 25 Mg Tablet 1 Tab PO DAILY Advair 250-50 Diskus (Fluticasone/Salmeterol) 1 Each Disk.w.dev 1 Puff IH BID Benadryl (Diphenhydramine Hcl) 25 Mg Capsule 25 Mg PO PRN PRN Potassium Chloride 10 Meq Tablet.er 1 Tab PO BID Oxybutynin Chloride Er (Oxybutynin Chloride) 5 Mg Tab.er.24 1 Tab PO BID Simbrinza 1%-0.2% Eye Drops (Brinzolamide/Brimonid Tart) 8 Ml Drops.susp 8 Ml EACHEYE BID Advanced Eye Relief Dry Eye Dp (Glycerin/Propylene Glycol) 30 Ml Drops 1 Drop OP PRN Q2HRS PRN Restasis (Cyclosporine) 1 Each Droperette 1 Drop EACHEYE BID Omeprazole 20 Mg Capsule.dr 1 Cap PO DAILY Metoprolol Tartrate 25 Mg Tablet 1 Tab PO BID Vitals/I & O Vital Sign - Last 24 Hours 09/20/17 09/20/17 09/20/17 09/20/17 09:29 09:30 11:00 11:10 Temp 99.5 99.5 Pulse 60 60 63 Resp 19 B/P (MAP) 119/69 119/69 113/65 (81) Pulse Ox 90 98 O2 Delivery Nasal Cannula Nasal Cannula O2 Flow Rate 5.0 09/20/17 09/20/17 09/20/17 09/20/17 15:00 15:02 19:00 20:00 Temp 97.9 98.5 97.9 98.5 Pulse 61 63 Resp 16 20 B/P (MAP) 99/37 (57) 132/52 (78) Pulse Ox 94 91 O2 Delivery Nasal Cannula Nasal Cannula Nasal Cannula Nasal Cannula O2 Flow Rate 5.0 5.0 6.0 09/20/17 09/20/17 09/20/17 09/20/17 20:31 20:32 23:00 23:06 Temp 97.5 97.5 Pulse 63 63 Resp 20 B/P (MAP) 112/41 (64) 132/52 Pulse Ox 90 O2 Delivery Nasal Cannula Nasal Cannula Nasal Cannula O2 Flow Rate 5.0 5.0 6.0 09/20/17 09/21/17 09/21/17 09/21/17 23:07 00:01 00:05 02:36 Pulse 63 B/P (MAP) 132/52 O2 Delivery Nasal Cannula BiPAP/CPAP BiPAP/CPAP O2 Flow Rate 5.0 09/21/17 09/21/17 09/21/17 03:00 04:35 07:42 Temp 97.8 97.8 Pulse 63 Resp 20 B/P (MAP) 117/67 (84) Pulse Ox 92 92 O2 Delivery Nasal Cannula Nasal Cannula Nasal Cannula O2 Flow Rate 6.0 5.0 5.0 Intake and Output 09/20/17 09/20/17 09/21/17 15:00 23:00 07:00 Intake Total 120 ml 300 ml 600 ml Balance 120 ml 300 ml 600 ml TOÑITO PEREYRA MD Sep 21, 2017 08:44
[2017-09-21] MEDS ORDERED: APIX2.5T PO (08:51)
[2017-09-21] MEDS: BRIMONIDINE 0.2% OPHTH SOLUTION 5ML BOTTLE. OU SCH (09:14)
[2017-09-21] MEDS: POLYVINYL ALCOHOL 1.4% OPHTH SOLUTION 15ML BOTTLE. OD SCH (09:14)
[2017-09-21] MEDS: NYSTATIN TOPICAL POWDER 15GM BOTTLE. TP SCH (09:14)
[2017-09-21] MEDS: DORZOLAMIDE 2% OPHTH SOLUTION 10ML BOTTLE. OU SCH (09:14)
[2017-09-21] MEDS: OXYBUTYNIN CHLORIDE 5 MG TABLET PO SCH (09:15)
[2017-09-21] MEDS: SIMETHICONE 80 MG TAB.CHEW PO SCH (09:15)
[2017-09-21] MEDS: metOLazone 2.5 MG TABLET PO SCH (09:15)
[2017-09-21] MEDS: METOPROLOL TART IMMED RELEASE 25 MG TABLET. PO SCH (09:15)
[2017-09-21] MEDS: POTASSIUM CHLORIDE 10 MEQ TABLET.ER. PO SCH (09:16)
[2017-09-21] MEDS: SPIRONOLACTONE 25 MG TABLET PO SCH (09:16)
[2017-09-21] MEDS: CYANOCOBALAMIN (VITAMIN B-12) 1,000 MCG TABLET. PO SCH (09:16)
[2017-09-21] MEDS: CITALOPRAM 20 MG TABLET. PO SCH (09:16)
[2017-09-21] MEDS: FUROSEMIDE 80 MG TABLET. PO SCH (09:16)
[2017-09-21] MEDS: APIXABAN 2.5 MG TABLET. PO SCH (09:16)
[2017-09-21] MEDS: LACTOBACILLUS RHAMNOSUS GG 1 CAPSULE. PO SCH (09:16)
--- NOTE | 2017-09-21 10:51 | PDOC ---
PULMONARY PROGRESS NOTES Subjective feels better, no soa Vitals Vital Signs Date Time Temp Pulse Resp B/P (MAP) Pulse Ox O2 Delivery O2 Flow Rate FiO2 09/21/17 09:15 63 104/42 09/21/17 07:42 92 Nasal Cannula 5.0 09/21/17 07:00 95.9 19 95.9 ROS: No Nausea General: Alert, No acute distress Lungs: Other (decrease bs) Cardiovascular: S1, S2 Abdomen: Soft, Non-tender Neuro Exam: Alert Extremities: No Edema Skin: Warm Labs Laboratory Tests Test 09/20/17 07:40 09/21/17 05:45 Prothrombin Time 19.3 SEC (11.7-14.0) Prothromb Time International Ratio 1.7 (0.8-1.1) Sodium Level 145 mmol/L (136-145) 140 mmol/L (136-145) Potassium Level 4.0 mmol/L (3.5-5.1) 3.7 mmol/L (3.5-5.1) Chloride Level 108 mmol/L (98-107) 104 mmol/L (98-107) Carbon Dioxide Level 33 mmol/L (21-32) 33 mmol/L (21-32) Anion Gap 4 (6-14) 3 (6-14) Blood Urea Nitrogen 16 mg/dL (7-20) 17 mg/dL (7-20) Creatinine 1.5 mg/dL (0.6-1.0) 1.7 mg/dL (0.6-1.0) Estimated GFR (Cockcroft-Gault) 33.4 28.9 Glucose Level 98 mg/dL (70-99) 98 mg/dL (70-99) Calcium Level 10.6 mg/dL (8.5-10.1) 11.2 mg/dL (8.5-10.1) Laboratory Tests Test 09/21/17 05:45 Sodium Level 140 mmol/L (136-145) Potassium Level 3.7 mmol/L (3.5-5.1) Chloride Level 104 mmol/L (98-107) Carbon Dioxide Level 33 mmol/L (21-32) Anion Gap 3 (6-14) Blood Urea Nitrogen 17 mg/dL (7-20) Creatinine 1.7 mg/dL (0.6-1.0) Estimated GFR (Cockcroft-Gault) 28.9 Glucose Level 98 mg/dL (70-99) Calcium Level 11.2 mg/dL (8.5-10.1) Medications Active Scripts Medications Dose Route/Sig Max Daily Dose Days Date Category Benadryl (Diphenhydramine Hcl) 25 Mg Capsule 1 Cap PO QHS 09/13/17 Reported Systane 0.3-0.4% Eye Drops (Propylene Glycol/Peg 400) 15 Ml Drops 1 Drop RIGHTEYE QID 09/13/17 Reported Citalopram Hbr (Citalopram Hydrobromide) 20 Mg Tablet 1 Tab PO DAILY 09/13/17 Reported Tylenol (Acetaminophen) 325 Mg Tablet 650 Mg PO [id number] 09/13/17 Reported Culturelle (Lactobacillus Rhamnosus Gg) 1 Each Cap.sprink 1 Cap PO BID 14 08/24/17 Rx Combivent Respimat Inhal (Ipratropium/Albuterol Sulfate) 4 Gm Aer.w.adap 2 Inh IH QID 08/15/17 Reported Systane Gel (Hypromellose) 10 Gm Gel..gram. 10 Gm OP 08/15/17 Reported Latanoprost 2.5 Ml Drops 1 Drop EACHEYE QHS 08/15/17 Reported Furosemide 80 Mg Tablet 1 Tab PO BID 08/15/17 Rx Pravastatin Sodium 20 Mg Tablet 1 Tab PO DAILY 05/12/17 Rx Simethicone 180 Mg Capsule 125 Mg PO BID 05/12/17 Reported Melatonin 3 Mg Tablet 10 Mg PO HS 05/12/17 Reported Vitamin B-12 (Cyanocobalamin (Vitamin B-12)) 1,000 Mcg Tablet 2,500 Mcg PO DAILY 05/12/17 Reported Warfarin Sodium 2 Mg Tablet 2.5 Mg PO DAILY 05/12/17 Reported Warfarin Sodium 5 Mg Tablet 1 Tab PO DAILY 05/12/17 Reported Diltiazem 24HR Cd (Diltiazem Hcl) 180 Mg Cap.er.24h 1 Cap PO BID 05/12/17 Reported Levothyroxine Sodium 112 Mcg Tablet 1 Tab PO DAILY 05/12/17 Reported Spironolactone 25 Mg Tablet 1 Tab PO DAILY 02/07/16 Reported Advair 250-50 Diskus (Fluticasone/Salmeterol) 1 Each Disk.w.dev 1 Puff IH BID 02/07/16 Reported Nystop (Nystatin) 1 Jessenia Jessenia 1 Jessenia TP BID 12/19/14 Rx Benadryl (Diphenhydramine Hcl) 25 Mg Capsule 25 Mg PO PRN PRN 12/15/14 Reported Potassium Chloride 10 Meq Tablet.er 1 Tab PO BID 12/15/14 Reported Oxybutynin Chloride Er (Oxybutynin Chloride) 5 Mg Tab.er.24 1 Tab PO BID 12/15/14 Reported Simbrinza 1%-0.2% Eye Drops (Brinzolamide/Brimonid Tart) 8 Ml Drops.susp 8 Ml EACHEYE BID 12/15/14 Reported Advanced Eye Relief Dry Eye Dp (Glycerin/Propylene Glycol) 30 Ml Drops 1 Drop OP PRN Q2HRS PRN 12/15/14 Reported Restasis (Cyclosporine) 1 Each Droperette 1 Drop EACHEYE BID 12/15/14 Reported Omeprazole 20 Mg Capsule.dr 1 Cap PO DAILY 12/15/14 Reported Metoprolol Tartrate 25 Mg Tablet 1 Tab PO BID 12/15/14 Reported Impression . 1. Cjmjz-[id number] hypoxic respiratory failure secondary to [id number] diastolic heart failure. compensated 2. Zvgqx-hu-xxixber diastolic heart failure. 3. Underlying chronic obstructive pulmonary disease with oxygen dependence. 4. Abnormal chest x-ray with worsening interstitial edema and a small left pleural effusion. 5. Leukopenia. 6. Chronic kidney disease stage 3. 7. Coagulopathy. Plan . 1. keep I<O, lasix, monitor k, cr, 2. BiPAP prn during day, cont at night. setting reviewed. 3. bronchodilators 4. chest x-ray reviewed 5. Continue DuoNebs. 6. Follow Cardiology's recommendations. 7. Monitor white cell count and INR, 8. dysphagia diet 9. protonix for stress ulcer prophylaxis Discussed with RN, pt ok with dc to [facility] Wolf MD Sep 21, 2017 10:51
--- NOTE | 2017-09-21 10:58 | PDOC ---
Subjective: Subjective: Denies swallowing complaints, plans to DC today. Objective: Vital Signs: Vital Signs Date Time Temp Pulse Resp B/P (MAP) Pulse Ox O2 Delivery O2 Flow Rate FiO2 09/21/17 09:15 63 104/42 09/21/17 07:42 92 Nasal Cannula 5.0 09/21/17 07:00 95.9 19 95.9 Labs: Laboratory Tests Test 09/21/17 05:45 Sodium Level 140 mmol/L Potassium Level 3.7 mmol/L Chloride Level 104 mmol/L Carbon Dioxide Level 33 mmol/L Anion Gap 3 Blood Urea Nitrogen 17 mg/dL Creatinine 1.7 mg/dL Estimated GFR (Cockcroft-Gault) 28.9 Glucose Level 98 mg/dL Calcium Level 11.2 mg/dL PE: GEN: NAD, asleep in chair LUNGS: NC HEART: RR ABD: S/ND/NT NEURO/PSYCH: A & O 3 A/P: Acute on chronic resp failure - better Dysphagia - better -- DC per primary. Continue PPI, follow-up as needed. MICHELLE SAEZ Sep 21, 2017 10:58
[2017-09-21 11:00] VITALS: BP 128/41
--- NOTE | 2017-09-21 18:48 | DS ---
DATE OF DISCHARGE: 09/21/2017 CHIEF COMPLAINT: Shortness of breath. HISTORY OF PRESENT ILLNESS: The patient is an 82-year-old female with a history of chronic respiratory failure due to COPD, and diastolic congestive heart failure. She is normally on oxygen 3 liters per nasal cannula. She had been staying at the [facility] after hospitalization last month. She was apparently sent to the Emergency Room on the day of admission when the staff there noticed that she was hypoxic on her usual oxygen. Evaluation in the Emergency Room showed the patient to be mildly hypoxic initially with a saturation of 84%, but no respiratory distress. A chest x-ray was suggestive of increased pulmonary vascular congestion. The patient was given one dose of Lasix and admitted for further care. HOSPITAL COURSE: The patient was seen in consultation by Cardiology, Pulmonary Medicine and Gastroenterology. She received some extra doses of Lasix and had some diuresis with this. She was also treated with BiPAP for her respiratory failure. The patient has had slow but significant improvement in her symptoms with these treatments. Her respiratory function is stable on oxygen per nasal cannula during the day and BiPAP overnight and she has been tolerating this well. She is back to her usual dose of oral Lasix b.i.d. and her cardiac function seems stable with this. She has chronic atrial fibrillation and has been on Coumadin for years. She had a very significant coagulopathy at admission with an INR of 5.5. Her Coumadin was stopped. She eventually required a dose of vitamin K, but her coagulopathy has now resolved. Her last INR was 1.7. She has been changed to Eliquis at a renal dose for ongoing anticoagulation as it appears this will be much safer for her. The patient was noted to have significant coughing and choking with meals and fluids. She was seen by Speech Therapy for evaluation. A video swallow showed aspiration of thin liquids, which abated when thickened liquids were used. She was placed on a dysphagia 2 diet with honey-thick liquids and aspiration precautions per Speech Therapy recommendations and this will be continued. It was noted that her swallowing was much improved when she sat up in a chair versus being fed in bed. The patient has chronic kidney disease stage 3, which was stable on the lab. She continues to have significant debility and is not strong enough to return home. She will transfer back to longterm today to continue her therapies there. FINAL DIAGNOSES: 1. Acute exacerbation of diastolic congestive heart failure. 2. Pulmonary hypertension. 3. Acute on chronic respiratory failure with chronic obstructive pulmonary disease. 4. Coagulopathy. 5. Chronic atrial fibrillation. 6. Dysphagia. 7. Chronic kidney disease stage 3. 8. Debility. 9. Glaucoma. DISCHARGE MEDICATIONS: Eliquis 2.5 mg b.i.d., Tylenol p.r.n., citalopram 20 mg daily, vitamin B12 at 1000 mcg daily, Cardizem-CD 180 mg b.i.d., Benadryl 25 mg at bedtime, Advair 250/50 one puff b.i.d., furosemide 80 mg p.o. b.i.d., Combivent Respimat q.i.d., levothyroxine 112 mcg daily, melatonin 10 mg at bedtime, metoprolol tartrate 25 mg b.i.d., nystatin powder p.r.n., omeprazole 20 mg daily, oxybutynin ER 5 mg b.i.d., potassium 10 mEq b.i.d., pravastatin 20 mg at bedtime, spironolactone 25 mg daily, eyedrops including Simbrinza, Restasis dry eye drops, latanoprost. Coumadin has been discontinued and will not be resumed. DISCHARGE INSTRUCTIONS: The patient is transferred to longterm today. Follow up with Dr. Lees after discharge from longterm. TOÑITO LEES MD DR: ERIN/melissa JOB#: [id number] / [id number] CARLOS
== END 2017-09-21 13:30 | DRG 291 ==
LOC: ER 11:53 → 5 SOUTH 16:30
PROVIDERS: ADMIT Family Medicine; ATTEND Family Medicine
PROC: 5A09357 Assistance with Respiratory Ventilation, Less than 24 Consecutive Hours, Continuous Positive Airway Pressure (ICD-10-PCS; principal; 2017-09-14)
PROC: 5A09357 Assistance with Respiratory Ventilation, Less than 24 Consecutive Hours, Continuous Positive Airway Pressure (ICD-10-PCS; 2017-09-15)
PROC: 5A09357 Assistance with Respiratory Ventilation, Less than 24 Consecutive Hours, Continuous Positive Airway Pressure (ICD-10-PCS; 2017-09-16)
PROC: 5A09357 Assistance with Respiratory Ventilation, Less than 24 Consecutive Hours, Continuous Positive Airway Pressure (ICD-10-PCS; 2017-09-17)
PROC: 5A09357 Assistance with Respiratory Ventilation, Less than 24 Consecutive Hours, Continuous Positive Airway Pressure (ICD-10-PCS; 2017-09-18)
PROC: 5A09357 Assistance with Respiratory Ventilation, Less than 24 Consecutive Hours, Continuous Positive Airway Pressure (ICD-10-PCS; 2017-09-19)
PROC: 5A09357 Assistance with Respiratory Ventilation, Less than 24 Consecutive Hours, Continuous Positive Airway Pressure (ICD-10-PCS; 2017-09-20)
DX: I13.0 Hypertensive heart and chronic kidney disease with heart failure and stage 1 through stage 4 chronic kidney disease, or unspecified chronic kidney disease (principal); I50.33 Acute on chronic diastolic (congestive) heart failure; J96.21 Acute and chronic respiratory failure with hypoxia; D68.9 Coagulation defect, unspecified; D64.9 Anemia, unspecified; D72.819 Decreased white blood cell count, unspecified; E03.9 Hypothyroidism, unspecified; E11.22 Type 2 diabetes mellitus with diabetic chronic kidney disease; E78.00 Pure hypercholesterolemia, unspecified; E78.5 Hyperlipidemia, unspecified; E88.81 Metabolic syndrome and other insulin resistance; F32.9 Major depressive disorder, single episode, unspecified; F41.9 Anxiety disorder, unspecified; H40.9 Unspecified glaucoma; I07.1 Rheumatic tricuspid insufficiency; I25.10 Atherosclerotic heart disease of native coronary artery without angina pectoris; I27.20 Pulmonary hypertension, unspecified; I48.2 Chronic atrial fibrillation; I71.4 Abdominal aortic aneurysm, without rupture; I87.8 Other specified disorders of veins; J44.9 Chronic obstructive pulmonary disease, unspecified; K21.9 Gastro-esophageal reflux disease without esophagitis; N18.3 Chronic kidney disease, stage 3 (moderate); M19.90 Unspecified osteoarthritis, unspecified site; R13.10 Dysphagia, unspecified; T45.515A Adverse effect of anticoagulants, initial encounter; Z79.01 Long term (current) use of anticoagulants; Z86.14 Personal history of Methicillin resistant Staphylococcus aureus infection; Z86.73 Personal history of transient ischemic attack (TIA), and cerebral infarction without residual deficits; Z87.891 Personal history of nicotine dependence; Z90.49 Acquired absence of other specified parts of digestive tract; Z95.0 Presence of cardiac pacemaker; Z95.1 Presence of aortocoronary bypass graft; Z95.3 Presence of xenogenic heart valve; Z99.81 Dependence on supplemental oxygen; Y92.89 Other specified places as the place of occurrence of the external cause; Z98.51 Tubal ligation status; Z88.6 Allergy status to analgesic agent; Z88.1 Allergy status to other antibiotic agents; Z88.8 Allergy status to other drugs, medicaments and biological substances
CPT/HCPCS: 36415; 36600; 71045; 74230; 80048; 80053; 82805; 83880; 84484; 85025; 85027; 85610; 85730; 87641; 93005; 94640; 94660; 94760; J1630; J1940; J2060; J3430; J7620; J7626; Q0163; 92526; 92610; 92611; 97530; 99285-25